=== PATIENT | male | born 1975 | race Caucasian/White ===

== ENCOUNTER 2020-04-03 14:15 | Inpatient (IN) | payer MEDICARE, OTHER ==
[~2020-04-03] VITALS: Ht 172.7 cm; Wt 127.0 kg
[2020-04-03] MEDS ORDERED: HYDROMORPHONE 1 MG/1 ML DISP.SYRIN ONE ×2 (14:41→15:23)
[2020-04-03 14:44] LABS: BASOPHILS # (AUTO) 0.1 K/uL (0.0-8.0); BASOPHILS % (AUTO) 0.8 % (0.0-2.0); EOSINOPHILS # (AUTO) 0.2 K/uL (0.0-0.7); EOSINOPHILS % (AUTO) 2.3 % (0.0-7.0); HEMOGLOBIN 13.9 g/dL (12.5-16.3); LYMPHOCYTES # (AUTO) 2.7 K/uL (20.0-40.0); LYMPHOCYTES % (AUTO) 27.3 % (20.5-51.5); MEAN CORPUSCULAR HEMOGLOBIN 29.7 uug (23.8-33.4); MEAN CORPUSCULAR HGB CONC 33 g/dL (32.5-36.3); MEAN CORPUSCULAR VOLUME 89.8 fL (73.0-96.2); MONOCYTES % (AUTO) 10.7 % (0.0-11.0); NEUTROPHILS # (AUTO) 5.7 K/uL (1.8-8.9); NEUTROPHILS % (AUTO) 58.9 % (38.5-71.5); PLATELET COUNT (AUTO) 314 K/uL (152-348); RED BLOOD CELL COUNT(AUTO) 4.68 MIL/uL (4.06-5.63); WHITE BLOOD COUNT (AUTO) 9.8 K/uL (3.6-10.2)
[2020-04-03] MEDS ORDERED: HYDROMORPHONE 1 MG/1 ML DISP.SYRIN IV ONE ×2 (14:45→15:30)
--- NOTE | 2020-04-03 14:48 | NUR ---
PT IS IN ROOM #1B. DR CUMMINGS EVALUATED THE PT.
[2020-04-03 15:04] LABS: ALANINE AMINOTRANSFERASE 36 U/L (16-63); ALKALINE PHOSPHATASE 139 U/L (50-136); ASPARTATE AMINOTRANSFERASE 11 U/L (15-37); BILIRUBIN,DIRECT < 0.1 mg/dL (0.0-0.2); BILIRUBIN,TOTAL 0.4 mg/dL (0.2-1.0); CARBON DIOXIDE 31 mmol/L (21-32); CHLORIDE 96 mmol/L (98-107); CREATININE 0.9 mg/dL (0.6-1.3); POTASSIUM 4.1 mmol/L (3.5-5.1); TOTAL PROTEIN, SERUM 6.5 g/dL (6.4-8.2); UREA NITROGEN, BLOOD 13 mg/dL (7-18)
[2020-04-03 15:05] LABS: GLUCOSE 354 mg/dL (74-106)
[2020-04-03] MEDS ORDERED: IV NORMAL SALINE 1000 ML BAG IV ONE (15:15)
[2020-04-03] MEDS ORDERED: LEVE1000 PO (15:47)
[2020-04-03] MEDS ORDERED: METH10TA2 PO ×2 (15:47)
[2020-04-03] MEDS ORDERED: CYCL5TAB PO (15:47)
[2020-04-03] MEDS ORDERED: ASPI-612 PO (15:47)
[2020-04-03] MEDS ORDERED: CLIN60GE TP (15:47)
[2020-04-03] MEDS ORDERED: NALO0.4D4 IJ (15:47)
[2020-04-03] MEDS ORDERED: ASPI81TA31 PO (15:47)
[2020-04-03] MEDS ORDERED: ONDA8TAB6 PO (15:47)
[2020-04-03] MEDS ORDERED: FAMO-132 PO (15:47)
[2020-04-03] MEDS ORDERED: VENL75TA4 PO (15:47)
[2020-04-03] MEDS ORDERED: LORA-259 PO (15:47)
[2020-04-03] MEDS ORDERED: HYDR12.55 PO (15:47)
[2020-04-03] MEDS ORDERED: GABA600T12 PO (15:47)
[2020-04-03] MEDS ORDERED: TICA90TA PO (15:47)
[2020-04-03] MEDS ORDERED: IPRA3AMP23 IH (15:47)
[2020-04-03] MEDS ORDERED: ATOR40TA PO (15:47)
[2020-04-03] MEDS ORDERED: BISA10SU61 RC (15:47)
[2020-04-03] MEDS ORDERED: FURO40TA5 PO (15:47)
[2020-04-03] MEDS ORDERED: VALP250C3 PO (15:47)
[2020-04-03] MEDS ORDERED: LISI-603 PO (15:47)
[2020-04-03] MEDS ORDERED: MORP60TA4 SL (15:47)
[2020-04-03] MEDS ORDERED: ATROPINE 1% SL (15:47)
--- NOTE | 2020-04-03 16:28 | NUR ---
REPORT WAS GIVEN TO WATER USE INSPECTOR. PT WAS TRANSFERED TO ROOM #327.
--- NOTE | 2020-04-03 16:45 | NUR ---
Pt in RM 327 via gurney, very lethargic and only moans when touched or by light pain. On O2 @ 2L saturating 96% with no SOB or distress noted at this time. No episodes of seizure. On tele SR, IV on MAYRA 22g H/L flushed and patent. Scabs and daley on BLE. Bed locked in lowest position with siderails 2x up. Call light within reach. Seizure precautions in place. padded siderails and suction attached. Can't perform assessment unable to obtain information since patient very lethargic
[2020-04-03] MEDS ORDERED: ASPIRIN 325 MG TABLET PO SCH (17:30)
[2020-04-03] MEDS ORDERED: LORAZEPAM 1 MG TABLET PO PRN (17:30)
[2020-04-03] MEDS ORDERED: BISACODYL 10 MG SUPP.RECT RC PRN (17:30)
[2020-04-03] MEDS ORDERED: DEXTROSE 50% 50 ML DISP.SYRIN IV PRN (17:45)
[2020-04-03] MEDS ORDERED: ONDANSETRON 4 MG/2 ML VIAL IV PRN (17:45)
[2020-04-03] MEDS ORDERED: ALBUTEROL SULFATE 1.25 MG/3 ML NEBU NEB PRN (17:45)
[2020-04-03] MEDS ORDERED: ACETAMINOPHEN 325 MG TABLET PO PRN (17:45)
--- NOTE | 2020-04-03 18:13 | NUR ---
Attempted to assess patient again but still very lethargic and unable to answer questions. Will reassess again when more awake.
--- NOTE | 2020-04-03 19:11 | NUR ---
Pt just woke up after right leg was moved and complained of pain, still a little lethargic. Oriented to room and unit policy. Stated that aura is metallic taste to mouth. No other complaints at this time. Bed locked in lowest position with siderails 2x up. Call light within reach. Endorsed to next shift to complete initial assessment and patient's belonging list.
--- NOTE | 2020-04-03 19:25 | NUR ---
Was able to take picture of right LE but refused to have the left LE picture taken.
--- NOTE | 2020-04-03 19:35 | NUR ---
Received patient calm, asleep, and lying in bed. No signs of acute distress at this time. Patient is on 2L via NC, patient denies SOB. Vital signs stable. Side rails padded and seizure precautions in place. calibration engineer on, patient is normal sinus rhythm. Bed alarm on and bed locked in low position. Safety measures in place. Will continue to monitor.
[2020-04-03 20:30] VITALS: BP 137/65
[2020-04-03] MEDS: levETIRAcetam 500 MG TABLET PO SCH (21:50)
[2020-04-03] MEDS: BLOOD SUGAR DIAGNOSTIC 1 EACH STRIP VI SCH (21:51)
[2020-04-03] MEDS: ATORVASTATIN 40 MG TABLET PO SCH (21:51)
[2020-04-03] MEDS: INSULIN REGULAR, HUMAN 300 UNIT/3 ML VIAL SQ PRN (21:53)
[2020-04-03] MEDS: MORPHINE SULFATE IR 30 MG TABLET PO PRN (23:36)
[2020-04-04 00:05] VITALS: BP 121/74
[2020-04-04 03:27] VITALS: BP 130/67
[2020-04-04 06:42] LABS: BASOPHILS % (AUTO) 0.3 % (0.0-2.0); EOSINOPHILS # (AUTO) 0.2 K/uL (0.0-0.7); EOSINOPHILS % (AUTO) 2.6 % (0.0-7.0); HEMATOCRIT 41.8 % (36.7-47.1); HEMOGLOBIN 13.8 g/dL (12.5-16.3); LYMPHOCYTES # (AUTO) 2.4 K/uL (20.0-40.0); LYMPHOCYTES % (AUTO) 26.6 % (20.5-51.5); MEAN CORPUSCULAR HEMOGLOBIN 29.9 uug (23.8-33.4); MEAN CORPUSCULAR HGB CONC 33 g/dL (32.5-36.3); MEAN CORPUSCULAR VOLUME 90.3 fL (73.0-96.2); MONOCYTES # (AUTO) 0.9 K/uL (2.0-10.0); MONOCYTES % (AUTO) 9.5 % (0.0-11.0); NEUTROPHILS # (AUTO) 5.6 K/uL (1.8-8.9); PLATELET COUNT (AUTO) 300 K/uL (152-348); RED BLOOD CELL COUNT(AUTO) 4.63 MIL/uL (4.06-5.63); WHITE BLOOD COUNT (AUTO) 9.2 K/uL (3.6-10.2)
[2020-04-04] MEDS: BLOOD SUGAR DIAGNOSTIC 1 EACH STRIP VI SCH ×4 (06:47→21:16)
[2020-04-04 06:50] LABS: THYROID STIMULATING HORMONE 1.396 mIU/mL (0.358-3.740)
[2020-04-04 06:53] LABS: BILIRUBIN,TOTAL 0.5 mg/dL (0.2-1.0); CREATININE 0.8 mg/dL (0.6-1.3); PHOSPHOROUS 3.7 mg/dL (2.5-4.9); POTASSIUM 3.8 mmol/L (3.5-5.1); TOTAL PROTEIN, SERUM 6.1 g/dL (6.4-8.2)
--- NOTE | 2020-04-04 07:30 | NUR ---
Received patient resting in bed. No signs of respiratory distress noted, patient is on 2 L of oxygen saturating at a 100%. Patient IV is on right upper arm 22 gauge,. Patient reports pain of 9/10, will check eMAR for pain medication and administer as prescribed. Seizure precautions are in place, with rails padded and suction in place. Patient blood glucose is 245, will cover with insulin according to sliding scale. Safety precautions in place, bed in the lowest position, locked with alarm activated. Call light and belongings are within reach. Will continue to monitor and observe.
[2020-04-04] MEDS ORDERED: LISINOPRIL 20 MG TABLET PO SCH (09:00)
[2020-04-04] MEDS ORDERED: CYCLOBENZAPRINE HCL 10 MG TABLET PO PRN (09:00)
[2020-04-04] MEDS: FAMOTIDINE 20 MG TABLET PO SCH (09:10)
[2020-04-04] MEDS: INSULIN REGULAR, HUMAN 300 UNIT/3 ML VIAL SQ PRN ×3 (09:11→21:14)
[2020-04-04] MEDS: GABAPENTIN 300 MG CAPSULE PO SCH ×3 (09:11→17:37)
[2020-04-04] MEDS: ASPIRIN 81 MG TAB.CHEW PO SCH (09:12)
[2020-04-04] MEDS: METHADONE HCL 10 MG TABLET PO SCH ×2 (09:12→17:37)
[2020-04-04] MEDS: levETIRAcetam 500 MG TABLET PO SCH ×2 (09:12→17:38)
[2020-04-04] MEDS: MORPHINE SULFATE IR 30 MG TABLET PO PRN ×2 (09:13→14:43)
[2020-04-04] MEDS: INSULIN GLARGINE,HUM 300 UNITS/3 ML CARTRIDGE SQ SCH ×2 (09:20→21:14)
--- NOTE | 2020-04-04 09:49 | NUR ---
Patient ask that i turn the bed alarm off.
[2020-04-04] MEDS: FUROSEMIDE 20 MG TABLET PO SCH (09:54)
[2020-04-04] MEDS: TICAGRELOR 90 MG TABLET PO SCH ×2 (09:55→17:38)
[2020-04-04 11:32] VITALS: BP 100/60
--- NOTE | 2020-04-04 11:33 | NUR ---
Patient refused to check his blood glucose, he says he is not eating and that it hurts too much. Will continue to monitor.
[2020-04-04] MEDS: VENLAFAXINE XR 75 MG TAB.ER.24H PO SCH (11:39)
[2020-04-04] MEDS: VALPROIC ACID 250 MG CAPSULE PO SCH ×3 (11:39→17:37)
[2020-04-04 16:02] VITALS: BP 105/74
--- NOTE | 2020-04-04 17:30 | NUR ---
Made Dr. Mccrary aware that the patient was not eating.
--- NOTE | 2020-04-04 17:45 | NUR ---
Received call from Monique Knowles at [facility] that patient's is positive for MRSA in both nares.
--- NOTE | 2020-04-04 18:30 | NUR ---
Patient is resting calmy in bed, he has been intermittently dozing on and off all day.No signs of acute distress at this time. Patient is on 2L via nasal cannula, patient denies SOB. Vital signs stable. Side rails padded and seizure precautions in place. playground monitor on patient is normal sinus rhythm. Bed alarm on and bed locked in low position. Safety measures and seizure precautions in place. Will endorse to the oncoming nurse
--- NOTE | 2020-04-04 19:30 | NUR ---
RECEIVED PT AWAKE, ALERT AND ORIENTEDX4. PT IN NO ACUTE DISTRESS. IV INTACT. SAFETY AND COMFORT PROVIDED. PT ON 2L NASAL CANNULA. WILL CONTINUE TO MONITOR.
[2020-04-04 20:00] VITALS: BP 100/52
[2020-04-04] MEDS: ATORVASTATIN 40 MG TABLET PO SCH (21:09)
--- NOTE | 2020-04-04 22:22 | NUR ---
PT AGREED FOR HIS BELONGING LIST TO BE CHECKED. FOUND CONTRABAND AND PUT IT ON THE CONTRABAND DRAWER. PT EASILY ASLEEP.PT SAFETY AND COMFORT PROVIDED. WILL CONTINUE TO MONITOR.
[2020-04-05] VITALS: BP 106/61
[2020-04-05] MEDS: MORPHINE SULFATE IR 30 MG TABLET PO PRN ×5 (03:22→20:42)
--- NOTE | 2020-04-05 03:35 | NUR ---
PT GIVEN MORPHINE PRN AT 0322 FOR 8/10 PAIN SCALE FOR RIGHT HIP PAIN. PT TOLERATED IT WELL. PT OBSERVED TO HAD SALOMON TO ORANGE COLORED URINE IN THE URINAL. SAFETY AND COMFORT PROVIDED. WILL CONTINUE TO MONITOR.
--- NOTE | 2020-04-05 04:45 | NUR ---
PT RESTING COMFORTABLY. PT STATED PAIN SCALE SUBSIDED TO 2/10. PT STABLE. WILL CONTINUE TO MONITOR.
--- NOTE | 2020-04-05 06:23 | NUR ---
PT SLEPT INTERMITTENTLY. PT IN NO ACUTE DISTRESS. IV INTACT. PRESCRIBED MEDICATION GIVEN AND PT TOLERATED IT WELL. SAFETY AND COMFORT PROVIDED. WILL ENDORSE TO INCOMING NURSE FOR CONTINUITY OF CARE.
[2020-04-05] MEDS: BLOOD SUGAR DIAGNOSTIC 1 EACH STRIP VI SCH ×4 (06:36→20:43)
--- NOTE | 2020-04-05 07:30 | NUR ---
Received patient resting in bed. No signs of respiratory distress noted, patient is on 2 L of oxygen saturating at a 100%. Patient IV is on right upper arm 22 gauge,. Patient reports pain of 9/10, will check eMAR for pain medication and administer as prescribed. Seizure precautions are in place, with rails padded and suction in place. Patient blood glucose is 196, will cover with insulin according to sliding scale. Safety precautions in place, bed in the lowest position, locked with alarm activated. Call light and belongings are within reach. Will continue to monitor and observe.
[2020-04-05] MEDS: levETIRAcetam 500 MG TABLET PO SCH ×2 (08:28→17:15)
[2020-04-05] MEDS: FUROSEMIDE 20 MG TABLET PO SCH (08:28)
[2020-04-05] MEDS: TICAGRELOR 90 MG TABLET PO SCH (08:28)
[2020-04-05] MEDS: FAMOTIDINE 20 MG TABLET PO SCH (08:28)
[2020-04-05] MEDS: VENLAFAXINE XR 75 MG TAB.ER.24H PO SCH (08:28)
[2020-04-05] MEDS: GABAPENTIN 300 MG CAPSULE PO SCH ×3 (08:28→17:15)
[2020-04-05] MEDS: ASPIRIN 81 MG TAB.CHEW PO SCH (08:29)
[2020-04-05] MEDS: METHADONE HCL 10 MG TABLET PO SCH ×2 (08:29→17:15)
[2020-04-05] MEDS: VALPROIC ACID 250 MG CAPSULE PO SCH ×3 (08:29→17:16)
[2020-04-05] MEDS: LISINOPRIL 20 MG TABLET PO SCH (08:35)
[2020-04-05] MEDS: INSULIN GLARGINE,HUM 300 UNITS/3 ML CARTRIDGE SQ SCH ×3 (08:37→20:46)
[2020-04-05] MEDS: INSULIN REGULAR, HUMAN 300 UNIT/3 ML VIAL SQ PRN ×4 (08:38→20:47)
[2020-04-05] MEDS ORDERED: SWABABLE VALVE TRANSFER SET EA MC ONE (09:14)
[2020-04-05] MEDS ORDERED: IOHEXOL 300MG/ML 100 ML INFUS..BTL ONE (09:15)
[2020-04-05] MEDS ORDERED: IV NORMAL SALINE 250 ML IV ONE (09:15)
--- NOTE | 2020-04-05 09:20 | NUR ---
Spoke with pharmacist, already gave patient 10 units of Lantus before medication was discontinued and new order for 14 units put in. Pharmacist said it is okay to non admin and start at 2100 tonight. Will continue to monitor.
[2020-04-05 11:36] VITALS: BP 107/63
[2020-04-05] MEDS: DRONABINOL 2.5 MG CAPSULE PO SCH ×2 (11:40→20:43)
[2020-04-05 16:00] VITALS: BP 120/52
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
--- NOTE | 2020-04-05 19:30 | NUR ---
Received patient calm and lying in bed. AAOx3. No signs or symptoms of acute distress noted at this time. Patient is on 2L O2 via NC and saturating at 97% denies SOB. Seizure precautions in place. Side rails up and padded x2. Suction Suction equipment in room. Bed low and locked. Patient refused bed alarm. Safety measure in place and will continue to monitor.
--- NOTE | 2020-04-05 19:49 | NUR ---
Patient resting in bed, all vitals are within normal limits. Safety precautions are in place. Gave all medications as prescribes. Will endorse to the oncoming nurse
[2020-04-05 20:00] VITALS: BP 135/58
[2020-04-05] MEDS: ATORVASTATIN 40 MG TABLET PO SCH (20:42)
[2020-04-05] MEDS: MUPIROCIN 2% OINT 22 GM TUBE NS SCH (20:42)
[2020-04-06] MEDS: MORPHINE SULFATE IR 30 MG TABLET PO PRN ×3 (00:55→10:23)
[2020-04-06 04:00] VITALS: BP 90/50
[2020-04-06] MEDS: BLOOD SUGAR DIAGNOSTIC 1 EACH STRIP VI SCH ×2 (06:38→11:59)
--- NOTE | 2020-04-06 08:00 | NUR ---
Received patient in bed awake. Patient is AAO x 4. NO acute distress noted. Patient asked if due for pain medication at the start of the shift, informed patient that medication is not due and will bring when it is due. Patient also asked when will be the discharge time. Informed patient will inform patient once the puts in the discharge order. All other needs and safety measures in place and will continue with care.
[2020-04-06] MEDS: INSULIN REGULAR, HUMAN 300 UNIT/3 ML VIAL SQ PRN ×2 (08:09→12:02)
[2020-04-06] MEDS ORDERED: INSU100V28 SQ (09:20)
[2020-04-06] MEDS ORDERED: ASPI-618 PO (09:20)
[2020-04-06] MEDS ORDERED: Blood Sugar Diagnostic VI (09:20)
[2020-04-06] MEDS ORDERED: ACET325T53 PO (09:20)
[2020-04-06] MEDS ORDERED: FLUT1BLS IH (09:20)
[2020-04-06] MEDS ORDERED: Dronabinol PO (09:20)
[2020-04-06] MEDS ORDERED: MORP30TA2 PO (09:20)
[2020-04-06] MEDS ORDERED: INSU100V7 SQ (09:20)
[2020-04-06] MEDS ORDERED: FURO20TA4 PO (09:20)
[2020-04-06] MEDS ORDERED: LORA-259 PO (09:20)
[2020-04-06] MEDS ORDERED: LISI10TA5 PO (09:20)
[2020-04-06] MEDS ORDERED: MULT-594 PO (09:20)
[2020-04-06] MEDS ORDERED: MUPI22OI2 NS (09:20)
[2020-04-06] MEDS ORDERED: DEXT50DI8 IV (09:20)
[2020-04-06] MEDS: METHADONE HCL 10 MG TABLET PO SCH (09:45)
[2020-04-06] MEDS: GABAPENTIN 300 MG CAPSULE PO SCH ×2 (09:46→13:36)
[2020-04-06] MEDS: FUROSEMIDE 20 MG TABLET PO SCH (09:46)
[2020-04-06] MEDS: VALPROIC ACID 250 MG CAPSULE PO SCH ×2 (09:46→13:36)
[2020-04-06] MEDS: DRONABINOL 2.5 MG CAPSULE PO SCH (09:46)
[2020-04-06] MEDS: VENLAFAXINE XR 75 MG TAB.ER.24H PO SCH (09:48)
[2020-04-06] MEDS: MUPIROCIN 2% OINT 22 GM TUBE NS SCH (09:48)
[2020-04-06] MEDS: levETIRAcetam 500 MG TABLET PO SCH (09:53)
[2020-04-06] MEDS: FAMOTIDINE 20 MG TABLET PO SCH (09:56)
[2020-04-06] MEDS: INSULIN GLARGINE,HUM 300 UNITS/3 ML CARTRIDGE SQ SCH (09:59)
[2020-04-06 10:45] VITALS: BP 121/86
[2020-04-06] MEDS: LISINOPRIL 20 MG TABLET PO SCH (11:00)
--- NOTE | 2020-04-06 11:00 | NUR ---
All due medications administered as ordered and scheduled. Patient on sliding scale insulin. insulin per sliding scale administered. Morphine IR 30mg 2 tabs administered for pain and tolerated well. Patient seen by Dr. Mccrary and with an order for discharge to assisted. will continue with care.
[2020-04-06 11:17] VITALS: BP 96/61
--- NOTE | 2020-04-06 14:33 | NUR ---
Discharge: Patient in stable condition, vital signs stable. Medications verified and discharge med orders given by . Discharge teaching provided to patient, patient is very aware of medications treatment and discharge orders. Discharge papers signed by patient. Report including new medication and new diagnosis of Diabetes given to Sridevi at [facility]. All other needs attended, safety measures in place and will continue with care.
--- NOTE | 2020-04-06 15:00 | NUR ---
Discharge: All belongings checked and returned to patient. Inventory paper signed by patient. Patient picked up by [facility] assisted by 2 brazer furnace via gurney and left at 3:02PM.
[2020-04-09] MEDS ORDERED: TICAGRELOR 90 MG TABLET PO SCH (09:00)
[2020-04-09] MEDS ORDERED: ASPIRIN EC 81 MG TABLET.DR PO SCH (09:00)
== END 2020-04-06 15:00 | DRG 100 ==
LOC: ER 14:15 → TELE3 16:04 → MEDSURG3 04-05 09:23
PROVIDERS: ADMIT Internal Medicine; ATTEND Internal Medicine
DX: G40.909 Epilepsy, unspecified, not intractable, without status epilepticus (principal); E43 Unspecified severe protein-calorie malnutrition; I69.351 Hemiplegia and hemiparesis following cerebral infarction affecting right dominant side; I50.32 Chronic diastolic (congestive) heart failure; D68.69 Other thrombophilia; Z68.41 Body mass index [BMI] 40.0-44.9, adult; E78.5 Hyperlipidemia, unspecified; Z85.830 Personal history of malignant neoplasm of bone; I11.0 Hypertensive heart disease with heart failure; E11.65 Type 2 diabetes mellitus with hyperglycemia; E66.01 Morbid (severe) obesity due to excess calories; F32.9 Major depressive disorder, single episode, unspecified; F90.9 Attention-deficit hyperactivity disorder, unspecified type; G47.33 Obstructive sleep apnea (adult) (pediatric); F17.210 Nicotine dependence, cigarettes, uncomplicated; G89.4 Chronic pain syndrome; I25.10 Atherosclerotic heart disease of native coronary artery without angina pectoris; N31.9 Neuromuscular dysfunction of bladder, unspecified; Z79.82 Long term (current) use of aspirin; Z90.49 Acquired absence of other specified parts of digestive tract; Z95.5 Presence of coronary angioplasty implant and graft; I67.2 Cerebral atherosclerosis; E88.81 Metabolic syndrome and other insulin resistance; M19.90 Unspecified osteoarthritis, unspecified site; Z22.322 Carrier or suspected carrier of Methicillin resistant Staphylococcus aureus; R62.7 Adult failure to thrive; R40.2142 Coma scale, eyes open, spontaneous, at arrival to emergency department; R40.2362 Coma scale, best motor response, obeys commands, at arrival to emergency department; R40.2252 Coma scale, best verbal response, oriented, at arrival to emergency department; Z79.4 Long term (current) use of insulin; Z79.891 Long term (current) use of opiate analgesic
CPT/HCPCS: 36415; 70030-TC; 70450; 71045; 73502; 73551; 80164; 83735; 84100; 84443; 85025; 85730; 93005; 93307; A4663; G0378; J1170; J1815; J7030; J7050; Q0167; Q9967

== ENCOUNTER 2020-07-18 21:32 | Inpatient (IN) | payer MEDICARE, OTHER ==
[~2020-07-18] VITALS: Ht 177.8 cm; Wt 126.2 kg
[~2020-07-18 21:32] MED LIST: ACET325T53 PO; ASPI-618 PO; ATOR40TA PO; BISA10SU61 RC; Blood Sugar Diagnostic VI; CYCL5TAB PO; DEXT50DI8 IV; Dronabinol PO; FAMO-132 PO; FLUT1BLS IH; FURO20TA4 PO; GABA600T12 PO; INSU100V28 SQ; INSU100V7 SQ; IPRA3AMP23 IH; LEVE1000 PO; LISI10TA5 PO; LORA-259 PO; MORP30TA2 PO; MULT-594 PO; MUPI22OI2 NS; NALO0.4D4 IJ; ONDA8TAB6 PO; TICA90TA PO; VALP250C3 PO; VENL75TA4 PO
[2020-07-18] MEDS ORDERED: ONDANSETRON 4 MG/2 ML VIAL IV ONE ×2 (22:15→22:30)
[2020-07-18] MEDS ORDERED: levETIRAcetam IV 1,000 MG in IV DEXTROSE 5% 100 ML IV ONE (22:15)
[2020-07-18] MEDS ORDERED: MORPHINE SULFATE 4 MG/1 ML DISP.SYRIN IV ONE (22:15)
[2020-07-18] MEDS ORDERED: levETIRAcetam 500 MG/5 ML VIAL IV ONE (22:22)
[2020-07-18] MEDS ORDERED: ONDANSETRON 4 MG/2 ML VIAL ONE ×2 (22:23→22:34)
[2020-07-18 22:34] LABS: CARBON DIOXIDE 22 mmol/L (21-32); CHLORIDE 95 mmol/L (98-107); CREATININE 0.8 mg/dL (0.6-1.3); GLUCOSE 281 mg/dL (74-106); POTASSIUM 3.4 mmol/L (3.5-5.1); UREA NITROGEN, BLOOD 9 mg/dL (7-18)
[2020-07-18 22:35] LABS: ALANINE AMINOTRANSFERASE 31 U/L (16-63); ALKALINE PHOSPHATASE 147 U/L (50-136); ASPARTATE AMINOTRANSFERASE 14 U/L (15-37); BASOPHILS # (AUTO) 0.1 K/uL (0.0-8.0); BASOPHILS % (AUTO) 0.4 % (0.0-2.0); BILIRUBIN,DIRECT 0.2 mg/dL (0.0-0.2); BILIRUBIN,TOTAL 0.5 mg/dL (0.2-1.0); ETHANOL < 3 MG/DL (0-0); HEMATOCRIT 41.6 % (36.7-47.1); HEMOGLOBIN 14.2 g/dL (12.5-16.3); LYMPHOCYTES # (AUTO) 1.4 K/uL (20.0-40.0); LYMPHOCYTES % (AUTO) 8.1 % (20.5-51.5); MEAN CORPUSCULAR HEMOGLOBIN 30.2 uug (23.8-33.4); MEAN CORPUSCULAR HGB CONC 34 g/dL (32.5-36.3); MEAN CORPUSCULAR VOLUME 88.9 fL (73.0-96.2); MONOCYTES # (AUTO) 0.8 K/uL (2.0-10.0); MONOCYTES % (AUTO) 4.8 % (0.0-11.0); NEUTROPHILS # (AUTO) 14.7 K/uL (1.8-8.9); NEUTROPHILS % (AUTO) 86.7 % (38.5-71.5); PLATELET COUNT (AUTO) 426 K/uL (152-348); RED BLOOD CELL COUNT(AUTO) 4.68 MIL/uL (4.06-5.63); TOTAL PROTEIN, SERUM 7.7 g/dL (6.4-8.2); WHITE BLOOD COUNT (AUTO) 16.9 K/uL (3.6-10.2)
[2020-07-18] MEDS ORDERED: HYDROMORPHONE 1 MG/1 ML DISP.SYRIN ONE (23:25)
[2020-07-18] MEDS ORDERED: HYDROMORPHONE 1 MG/1 ML DISP.SYRIN IV ONE (23:30)
[2020-07-18] MEDS ORDERED: IV NORMAL SALINE 500 ML IV ONE (23:30)
--- NOTE | 2020-07-18 23:30 | NUR ---
Patient will be going to bed 302 TELE per RAGHAV Miller
--- NOTE | 2020-07-18 23:32 | NUR ---
EPIC panel placed, awaiting call back from Lisa Lott, LAURA
[2020-07-18] MEDS ORDERED: METOCLOPRAMIDE HCL 10 MG/2 ML VIAL ONE (23:56)
[2020-07-18] MEDS ORDERED: DIVALPROEX 500 MG TABLET.DR PO ONE (23:56)
[2020-07-19] MEDS ORDERED: METOCLOPRAMIDE HCL 10 MG/2 ML VIAL IV ONE
[2020-07-19] MEDS ORDERED: DIVALPROEX 500 MG TABLET.DR PO ONE
[2020-07-19] MEDS ORDERED: DIVALPROEX 250 MG TABLET.DR PO ONE (00:07)
[2020-07-19] MEDS ORDERED: HYDROMORPHONE 1 MG/1 ML DISP.SYRIN IV ONE (00:15)
--- NOTE | 2020-07-19 00:31 | NUR ---
Report given to RAGHAV Nunez.
[2020-07-19] MEDS ORDERED: HYDROMORPHONE 1 MG/1 ML DISP.SYRIN ONE (00:36)
--- NOTE | 2020-07-19 00:54 | NUR ---
Patient transported to TELE in stable condition.
[2020-07-19] MEDS ORDERED: ENOXAPARIN SODIUM 40 MG/0.4 ML DISP.SYRIN SQ SCH (01:00)
[2020-07-19] MEDS ORDERED: INSULIN REGULAR, HUMAN 300 UNIT/3 ML VIAL SQ PRN (01:00)
[2020-07-19] MEDS ORDERED: ONDANSETRON 4 MG/2 ML VIAL IV PRN (01:00)
[2020-07-19] MEDS ORDERED: ACETAMINOPHEN 650 MG SUPP.RECT RC PRN (01:00)
[2020-07-19] MEDS ORDERED: HYDROCODONE/APAP 10-325 MG TABLET PO PRN (01:00)
[2020-07-19] MEDS ORDERED: Z GUARD REMEDY PASTE 57 GM TUBE TOP PRN (01:00)
[2020-07-19] MEDS ORDERED: DEXTROSE 50% 50 ML DISP.SYRIN IV PRN (01:00)
[2020-07-19] MEDS ORDERED: IV NS 1000 ML 1,000 ML IV PRN ×2 (01:00→01:13)
[2020-07-19] MEDS ORDERED: AZITHROMYCIN IV 250 MG in IV DEXTROSE 5% 250 ML IV SCH (01:00)
[2020-07-19] MEDS ORDERED: LORAZEPAM 2 MG/1 ML VIAL IV PRN (01:15)
--- NOTE | 2020-07-19 01:30 | NUR ---
RECEIVED PATIENT VIA GURNEY FROM ER NURSE. REPORT RECEIVED. PATIENT IN BED, ALERT AND VERBALLY RESPONSIVE. CAN MAKE NEEDS KNOWN. PATIENT WITH COMPLAINTS OF BEING NAUSEOUS. PATIENT PREFERS NOT TO MOVE MUCH. PARTIAL BODY CHECK DONE PATIENT GETS NAUSEOUS WITH MOVEMENT. OFFERED ICE CHIPS. PATIENT REFUSED. HOB ELEVATED FOR ASPIRATION PRECAUTIONS. PATIENT ORIENTED TO ROOM AND FLOOR, MADE COMFORTABLE. ON 2.5L/MIN OF O2 VIA NC. RESPIRATIONS EVEN AND UNLABORED. CORNEJO CATHETER DRAINING CLEAR SALOMON URINE.
--- NOTE | 2020-07-19 02:10 | NUR ---
PATIENT REPORTS OF NAUSEA. X1 EPISODE OF COFFEE GROUND EMESIS. ASPIRATION PRECAUTIONS OBSERVED. FALL, SAFETY, AND SEIZURE PRECAUTIONS OBSERVED WELL. TUCKER SOTO PERINATOLOGY PHYSICIAN MADE AWARE. CLARIFIED MEDICATION. PROTONIX TO BE GIVEN NOW AND FOR ORAL MEDS TO BE CHANGED TO IV ROUTE WHILE PT IS NPO. PHARMACY MADE AWARE. VALPROATE WITH NO DIRECT COUNTERPART FOR IV MEDICATION AND GABAPENTIN WITH NO IV COUNTERPART. TUCKER SOTO MADE AWARE. ALSO MADE PHARMACY AWARE OF ACETAMINOPHEN ALLERGIC REACTION. PER PT, REACTION IS ANAPHYLACTIC SHOCK.
[2020-07-19] MEDS ORDERED: PROCHLORPERAZINE EDISYLATE 10 MG/2 ML VIAL IV PRN (02:15)
[2020-07-19] MEDS ORDERED: IV 0.9% SODIUM CHLORID+ 20 KCL 1,000 ML IV PRN (02:15)
[2020-07-19] MEDS ORDERED: PANTOPRAZOLE SODIUM 40 MG VIAL IV ONE (02:45)
--- NOTE | 2020-07-19 03:00 | NUR ---
PATIENT REFUSED BLOOD DRAW. PER PT, HE IS FEELING NAUSEOUS. WILL ATTEMPT AGAIN AT A LATER TIME
[2020-07-19] MEDS: MORPHINE SULFATE 2 MG/1 ML DISP.SYRIN IV PRN ×3 (03:10→10:48)
[2020-07-19] MEDS ORDERED: AZITHROMYCIN 500 MG VIAL IV ONE (03:13)
[2020-07-19 04:00] VITALS: BP 131/72
[2020-07-19] MEDS: BLOOD SUGAR DIAGNOSTIC 1 EACH STRIP VI SCH ×2 (06:00→11:02)
[2020-07-19] MEDS ORDERED: VALPROATE SODIUM IV SCH ×3 (06:00→09:00)
[2020-07-19] MEDS ORDERED: DEXTROSE 5% IV SCH ×3 (06:00→09:00)
--- NOTE | 2020-07-19 06:30 | NUR ---
PATIENT REFUSED MRSA SWAB, BLOOD SUGAR CHECK, AND BLOOD DRAW. PATIENT STATED, "I AM DONE FOR THIS MORNING." PER PHLEB, PATIENT SAID TO TRY TO DRAW BLOOD AGAIN LATER.
[2020-07-19 07:28] LABS: *BILIRUBIN,URIN NEGATIVE (NEGATIVE); *BLOOD, URINE 2+ (NEGATIVE); *CLARITY,URINE SLIGHTLY CLOUDY (CLEAR); *COLOR,URINE YELLOW (YELLOW); *KETONES,URINE 2+ (NEGATIVE); LEUKOCYTE ESTERASE ,URINE NEGATIVE (NEGATIVE); NITRITE, URINE POSITIVE (NEGATIVE); UGLUCOSE 2+ (NEGATIVE)
[2020-07-19] MEDS ORDERED: levETIRAcetam 500 MG TABLET PO SCH ×2 (09:00→21:00)
[2020-07-19] MEDS ORDERED: PANTOPRAZOLE SODIUM 40 MG VIAL IV SCH (09:00)
[2020-07-19] MEDS ORDERED: levETIRAcetam IV 1,000 MG in IV DEXTROSE 5% 100 ML IV SCH (09:00)
[2020-07-19] MEDS ORDERED: VALPROIC ACID 250 MG CAPSULE PO SCH (09:00)
[2020-07-19] MEDS: GABAPENTIN 300 MG CAPSULE PO SCH ×3 (09:00→14:44)
[2020-07-19 11:32] VITALS: BP 128/91
--- NOTE | 2020-07-19 12:00 | NUR ---
pt have svt 22 second and his hr is200 .check the pt and pt is asymptomatic his bp is 126/69 hr 95 md made aware no chest pain and seizure noted
[2020-07-19 12:33] LABS: BACTERIA,URINE FEW /HPF (NONE SEEN); SQUAMOUS EPITHELIAL CELL,UR FEW /HPF (NONE SEEN); YEAST,URINE MANY /HPF (NONE SEEN)
--- NOTE | 2020-07-19 12:50 | NUR ---
PT TOOK THE HEART MONITOR AND DC HIS IV FLUIDS MADE AWARE
[2020-07-19] MEDS ORDERED: BISACODYL 10 MG SUPP.RECT RC PRN (13:00)
[2020-07-19] MEDS ORDERED: MORPHINE SULFATE IR 30 MG TABLET PO PRN (13:00)
[2020-07-19] MEDS ORDERED: LORAZEPAM 1 MG TABLET PO PRN (13:00)
--- NOTE | 2020-07-19 14:00 | NUR ---
pt is on the wheel chair in the hallway threatening the staff he wants to go paul mcclelland made aware ,AMA PAPER GIVEN TO THE PT ,PT SIGN THE AMA PAPER AMA BELONGING PAPER ,REMOVED THE IV HEPLOCK .
--- NOTE | 2020-07-19 14:00 | NUR ---
PT REFUSED TO REMOVE THE NAME BAND FIGHTING WITH THE STAFF SECURITY CALLED AND NOTIFIED THE
--- NOTE | 2020-07-19 14:10 | NUR ---
PT IS ARGUING WITH THE SECURITY AND WITH THE STAFF ABOUT HIS MEDICATION AND HE GET THE AMA PAPER AND HE RIP IT AND HE SAID HE IS NOT GOING
[2020-07-19] MEDS ORDERED: DIVALPROEX 250 MG TABLET.DR PO SCH (14:38)
--- NOTE | 2020-07-19 14:55 | NUR ---
PER MD ORDERS MORPHINE 60 MG PO GIVEN
[2020-07-19] MEDS ORDERED: ONDANSETRON HCL 4 MG TABLET PO PRN (15:15)
[2020-07-19] MEDS ORDERED: VALPROATE SODIUM IV 1,000 MG in IV DEXTROSE 5% 100 ML IV STA (15:29)
[2020-07-19 15:37] VITALS: BP 131/68
[2020-07-19] MEDS ORDERED: DIVA500T2 PO (15:41)
[2020-07-19] MEDS ORDERED: CEPH-570 PO (15:43)
[2020-07-19] MEDS ORDERED: LEVO500T90 PO (16:39)
--- NOTE | 2020-07-19 16:55 | NUR ---
DC ORDERS RECEIVED NOTED AND CARRIED OUT,DC INSTRUCTION AND RN REPORT GIVEN TO THE CORRECTION,DC HEPLOCK PER MD ORDERS.DC INSTRUCTION GIVEN TO THE PT,PT LEFT THE FACILITY VIA AMBULANCES IN STABLE CONDITION
[2020-07-19] MEDS ORDERED: TICAGRELOR 90 MG TABLET PO SCH ×2 (17:00)
[2020-07-19] MEDS ORDERED: ATORVASTATIN 40 MG TABLET PO SCH (18:00)
[2020-07-19] MEDS ORDERED: MUPIROCIN 2% OINT 22 GM TUBE NS SCH (21:00)
[2020-07-19] MEDS ORDERED: DRONABINOL 2.5 MG PO SCH (21:00)
[2020-07-19] MEDS ORDERED: CYCLOBENZAPRINE HCL 10 MG TABLET PO PRN (22:00)
[2020-07-20] MEDS ORDERED: PANTOPRAZOLE SODIUM 40 MG TABLET.DR PO SCH (07:00)
[2020-07-20] MEDS ORDERED: FLUTICASONE/VILANTEROL 1 EACH BLST.W.DEV IH SCH (09:00)
[2020-07-20] MEDS ORDERED: VENLAFAXINE HCL 150 MG PO SCH (09:00)
[2020-07-20] MEDS ORDERED: ASPIRIN EC 81 MG TABLET.DR PO SCH (09:00)
[2020-07-20] MEDS ORDERED: FAMOTIDINE 20 MG TABLET PO SCH (09:00)
[2020-07-20] MEDS ORDERED: MULTIVITAMINS,THERAPEUTIC TABLET PO SCH (09:00)
[2020-07-20] MEDS ORDERED: LISINOPRIL 10 MG TABLET PO SCH (09:00)
[2020-07-20] MEDS ORDERED: FUROSEMIDE 20 MG TABLET PO SCH (09:00)
== END 2020-07-19 17:02 | DRG 100 ==
LOC: ER 21:34 → TELE3 07-19 00:41
PROVIDERS: ADMIT Student in an Organized Health Care Education/Training Program; ATTEND Student in an Organized Health Care Education/Training Program
DX: G40.909 Epilepsy, unspecified, not intractable, without status epilepticus (principal); E43 Unspecified severe protein-calorie malnutrition; F11.23 Opioid dependence with withdrawal; E87.1 Hypo-osmolality and hyponatremia; D68.69 Other thrombophilia; I50.32 Chronic diastolic (congestive) heart failure; R18.8 Other ascites; E78.5 Hyperlipidemia, unspecified; F39 Unspecified mood [affective] disorder; Z79.4 Long term (current) use of insulin; E87.70 Fluid overload, unspecified; Z79.82 Long term (current) use of aspirin; Z85.830 Personal history of malignant neoplasm of bone; E66.01 Morbid (severe) obesity due to excess calories; E11.9 Type 2 diabetes mellitus without complications; E86.0 Dehydration; F17.210 Nicotine dependence, cigarettes, uncomplicated; F32.9 Major depressive disorder, single episode, unspecified; G89.4 Chronic pain syndrome; I25.10 Atherosclerotic heart disease of native coronary artery without angina pectoris; G47.33 Obstructive sleep apnea (adult) (pediatric); F90.9 Attention-deficit hyperactivity disorder, unspecified type; E88.81 Metabolic syndrome and other insulin resistance; Z98.61 Coronary angioplasty status; M19.90 Unspecified osteoarthritis, unspecified site; I11.0 Hypertensive heart disease with heart failure; Z68.39 Body mass index [BMI] 39.0-39.9, adult; T43.225A Adverse effect of selective serotonin reuptake inhibitors, initial encounter; Y92.129 Unspecified place in nursing home as the place of occurrence of the external cause
CPT/HCPCS: 36415; 71045; 80164; 83615; 85025; 86140; 87086; 93005; A4663; C9113; G0378; G0480; J0456; J0780; J1170; J1650; J1815; J1953; J2270; J2405; J2765; J3490; J7040; J7060

== ENCOUNTER 2020-12-27 15:00 | Inpatient (IN) | payer MEDICARE, OTHER ==
[~2020-12-27] VITALS: Ht 177.8 cm; Wt 126.1 kg
[~2020-12-27 15:00] MED LIST changes: -ACET325T53 PO; -Blood Sugar Diagnostic VI; -DEXT50DI8 IV; +DIVA500T2 PO; -INSU100V28 SQ; -INSU100V7 SQ; +LEVO500T90 PO; +LISI10TA29 PO; -LISI10TA5 PO; -VALP250C3 PO
[2020-12-27] MEDS ORDERED: EPIN1AMP (15:34)
[2020-12-27] MEDS ORDERED: ASCO500P18 PO (15:34)
[2020-12-27] MEDS ORDERED: LORA-258 PO (15:34)
[2020-12-27] MEDS ORDERED: MELA3TAB41 PO (15:34)
[2020-12-27] MEDS ORDERED: CHOL500050 PO (15:34)
[2020-12-27] MEDS ORDERED: FURO-151 PO (15:34)
[2020-12-27] MEDS ORDERED: ZINC50TA65 PO (15:34)
[2020-12-27] MEDS ORDERED: DIPH25CA83 PO (15:34)
[2020-12-27] MEDS ORDERED: ESCI10TA PO (15:34)
[2020-12-27] MEDS ORDERED: INSU100I26 SQ (15:34)
[2020-12-27] MEDS ORDERED: UMEC1BLS IH (15:34)
[2020-12-27] MEDS ORDERED: DEXT15DR6 EACHEYE (15:34)
[2020-12-27] MEDS ORDERED: ALBUTEROL SULFATE 2.5 MG/3 ML NEBU NEB ONE (16:00)
[2020-12-27] MEDS ORDERED: MORPHINE SULFATE IR 30 MG TABLET PO ONE (16:00)
[2020-12-27] MEDS ORDERED: IPRATROPIUM BROMIDE 0.5 MG/2.5 ML NEBU NEB ONE (16:00)
[2020-12-27 16:03] LABS: BASOPHILS % (AUTO) 0.3 % (0.0-2.0); EOSINOPHILS # (AUTO) 0.2 K/uL (0.0-0.7); EOSINOPHILS % (AUTO) 1.4 % (0.0-7.0); HEMATOCRIT 43.2 % (36.7-47.1); HEMOGLOBIN 14.4 g/dL (12.5-16.3); LYMPHOCYTES # (AUTO) 3.3 K/uL (20.0-40.0); LYMPHOCYTES % (AUTO) 26.8 % (20.5-51.5); MEAN CORPUSCULAR HEMOGLOBIN 30.9 uug (23.8-33.4); MEAN CORPUSCULAR HGB CONC 33 g/dL (32.5-36.3); MEAN CORPUSCULAR VOLUME 92.6 fL (73.0-96.2); MONOCYTES # (AUTO) 1.1 K/uL (2.0-10.0); MONOCYTES % (AUTO) 9.1 % (0.0-11.0); NEUTROPHILS # (AUTO) 7.8 K/uL (1.8-8.9); NEUTROPHILS % (AUTO) 62.4 % (38.5-71.5); PLATELET COUNT (AUTO) 297 K/uL (152-348); RED BLOOD CELL COUNT(AUTO) 4.66 MIL/uL (4.06-5.63); WHITE BLOOD COUNT (AUTO) 12.5 K/uL (3.6-10.2)
[2020-12-27] MEDS ORDERED: IPRATROPIUM BROMIDE 0.5 MG/2.5 ML NEBU ONE (16:16)
[2020-12-27] MEDS ORDERED: ALBUTEROL SULFATE 2.5 MG/3 ML NEBU ONE (16:16)
[2020-12-27 16:19] LABS: CREATININE 0.8 mg/dL (0.6-1.3); POTASSIUM 4.4 mmol/L (3.5-5.1)
[2020-12-27 16:23] LABS: BILIRUBIN,DIRECT 0.1 mg/dL (0.0-0.2); BILIRUBIN,TOTAL 0.2 mg/dL (0.2-1.0); TOTAL PROTEIN, SERUM 7.5 g/dL (6.4-8.2)
[2020-12-27] MEDS ORDERED: INSULIN REGULAR, HUMAN 300 UNIT/3 ML VIAL SQ ONE (16:45)
[2020-12-27] MEDS ORDERED: MORPHINE SULFATE IR 30 MG TABLET ONE (17:23)
[2020-12-27] MEDS ORDERED: MORPHINE SULFATE 4 MG/1 ML DISP.SYRIN ONE (17:25)
[2020-12-27] MEDS ORDERED: MORPHINE SULFATE 4 MG/1 ML DISP.SYRIN IM ONE (17:30)
[2020-12-27] MEDS ORDERED: INSULIN REGULAR, HUMAN 300 UNIT/3 ML VIAL ONE (18:15)
--- NOTE | 2020-12-27 18:18 | NUR ---
Called report to RAGHAV Forrest
--- NOTE | 2020-12-27 18:38 | NUR ---
45 year old male received to room 314 for chest pain ,pt is axox4 vs are stable call light with in reach orient the pt to room and surroundings . made aware for the admission orders
[2020-12-27 18:46] VITALS: BP 138/90
--- NOTE | 2020-12-27 19:30 | NUR ---
patient called and verbalized pain nto his left leg ,like grinding pain pain level 8/10. he said he takes morphine liquid in the nursing facility . called primary md for orders .
[2020-12-27] MEDS: HYDROMORPHONE 1 MG/1 ML DISP.SYRIN IV PRN (19:49)
--- NOTE | 2020-12-27 19:49 | NUR ---
given Dilaudid for pain . 03/19 left leg . advised patient to call for assistance and to used the call magallanes ,michael placed with in reach .
[2020-12-27 20:00] VITALS: BP 124/91
--- NOTE | 2020-12-27 20:00 | NUR ---
patient wants something to eat he said his starving . informed that his a diabetic he said he does not follow diabetic diet and his on double portion large regular diet .
--- NOTE | 2020-12-27 20:00 | NUR ---
d/c right forearm heplock as per patient request ,patient with newly inserted left ac midline .
[2020-12-27] MEDS ORDERED: ALBUTEROL SULFATE 2.5 MG/3 ML NEBU NEB PRN (20:15)
[2020-12-27] MEDS ORDERED: IPRATROPIUM BROMIDE 0.5 MG/2.5 ML NEBU NEB PRN (20:15)
[2020-12-27] MEDS ORDERED: BISACODYL 10 MG SUPP.RECT RC PRN (20:15)
[2020-12-27] MEDS ORDERED: CYCLOBENZAPRINE HCL 10 MG TABLET PO PRN (20:15)
[2020-12-27] MEDS ORDERED: ACETAMINOPHEN 325 MG TABLET PO PRN ×2 (20:15→20:30)
[2020-12-27] MEDS ORDERED: LORAZEPAM 0.5 MG TABLET PO PRN (20:15)
[2020-12-27] MEDS ORDERED: diphenhydrAMINE 25 MG CAP PO PRN (20:15)
[2020-12-27] MEDS ORDERED: MELATONIN 3 MG TABLET PO PRN (20:15)
[2020-12-27] MEDS ORDERED: DEXTROSE 50% 50 ML DISP.SYRIN IV PRN (20:30)
[2020-12-27] MEDS: BLOOD SUGAR DIAGNOSTIC 1 EACH STRIP VI SCH (21:00)
--- NOTE | 2020-12-27 22:00 | NUR ---
patient refused the hospital gown and wants belongings at b/s.
--- NOTE | 2020-12-27 22:00 | NUR ---
DRGume BUSTAMANTE came and visited patient as per MEAGHAN BUSTAMANTE patient in bed sleeping soundly .spoked to TRAY na dinformed patient was medicated with dilaudid for pain , as per TRAY he will come tomorrow.
[2020-12-27] MEDS: ATORVASTATIN 40 MG TABLET PO SCH (22:47)
[2020-12-27] MEDS: INSULIN REGULAR, HUMAN 300 UNITS/3 ML VIAL SQ PRN (23:07)
[2020-12-27] MEDS: INSULIN GLARGINE,HUM 300 UNITS/3 ML CARTRIDGE SQ SCH (23:16)
[2020-12-28] MEDS: HYDROMORPHONE 1 MG/1 ML DISP.SYRIN IV PRN ×5 (03:49→21:28)
[2020-12-28 04:35] VITALS: BP 118/75
--- NOTE | 2020-12-28 05:08 | NUR ---
collected urine and send to lab .
[2020-12-28 05:13] LABS: *BILIRUBIN,URIN NEGATIVE (NEGATIVE); *CLARITY,URINE CLOUDY (CLEAR); *COLOR,URINE YELLOW (YELLOW); *KETONES,URINE 1+ (NEGATIVE); LEUKOCYTE ESTERASE ,URINE TRACE (NEGATIVE); NITRITE, URINE POSITIVE (NEGATIVE)
[2020-12-28 05:30] LABS: *BLOOD, URINE TRACE (NEGATIVE); UGLUCOSE 2+ (NEGATIVE)
[2020-12-28 05:34] LABS: BACTERIA,URINE MANY /HPF (NONE SEEN); SQUAMOUS EPITHELIAL CELL,UR FEW /HPF (NONE SEEN); WBC,URINE 80-100 /HPF (0-3); YEAST,URINE PSEUDOHYPHAE /HPF (NONE SEEN)
--- NOTE | 2020-12-28 06:13 | NUR ---
burlap roll coverer at b/s for am labs as per burlap roll coverer patient refused lab draw.advised to came back later .
[2020-12-28 08:00] VITALS: BP 119/63
--- NOTE | 2020-12-28 08:00 | NUR ---
received change of shift report on pt, pt a/ox4 on tele monitor NSR, on room air, no signs of distress, no reports of pain, pt ambulatory, voids via odom, BRP, IV access on left upper arm midline. call light within reach, bed low and locked.
[2020-12-28] MEDS: BLOOD SUGAR DIAGNOSTIC 1 EACH STRIP VI SCH ×4 (08:41→22:16)
[2020-12-28] MEDS: FLUTICASONE/VILANTEROL 1 EACH BLST.W.DEV IH SCH (08:42)
[2020-12-28] MEDS: GABAPENTIN 300 MG CAPSULE PO SCH ×4 (08:43→17:26)
[2020-12-28] MEDS: MULTIVITAMINS,THERAPEUTIC TABLET PO SCH (08:43)
[2020-12-28] MEDS: CHOLECALCIFEROL 1,000 UNIT TABLET PO SCH (08:43)
[2020-12-28] MEDS: ASPIRIN EC 81 MG TABLET.DR PO SCH (08:45)
[2020-12-28] MEDS: LISINOPRIL 10 MG TABLET PO SCH (08:45)
[2020-12-28] MEDS: DIVALPROEX 500 MG TABLET.DR PO SCH ×4 (08:46→17:26)
[2020-12-28] MEDS: FAMOTIDINE 20 MG TABLET PO SCH (08:46)
[2020-12-28] MEDS: FUROSEMIDE 40 MG TABLET PO SCH (08:46)
[2020-12-28] MEDS: ASCORBIC ACID 500 MG TABLET PO SCH (08:46)
[2020-12-28] MEDS: levETIRAcetam 500 MG TABLET PO SCH ×3 (08:46→17:26)
[2020-12-28] MEDS: ESCITALOPRAM OXALATE 10 MG TABLET PO SCH (08:47)
[2020-12-28] MEDS: ZINC SULFATE 220 MG CAPSULE PO SCH (08:47)
[2020-12-28] MEDS: INSULIN GLARGINE,HUM 300 UNITS/3 ML CARTRIDGE SQ SCH ×2 (08:49→21:33)
[2020-12-28] MEDS: INSULIN REGULAR, HUMAN 300 UNIT/3 ML VIAL SQ PRN ×3 (08:51→17:32)
[2020-12-28] MEDS ORDERED: TICAGRELOR 90 MG TABLET PO SCH ×2 (09:00)
[2020-12-28] MEDS: levoFLOXacin 750MG/D5W 750 MG in PREMIXED 1 EACH IV SCH (10:26)
[2020-12-28 10:35] LABS: BASOPHILS % (AUTO) 0.3 % (0.0-2.0); EOSINOPHILS # (AUTO) 0.2 K/uL (0.0-0.7); EOSINOPHILS % (AUTO) 1.8 % (0.0-7.0); HEMATOCRIT 41.6 % (36.7-47.1); HEMOGLOBIN 13.9 g/dL (12.5-16.3); LYMPHOCYTES # (AUTO) 2.5 K/uL (20.0-40.0); LYMPHOCYTES % (AUTO) 22.8 % (20.5-51.5); MEAN CORPUSCULAR HEMOGLOBIN 30.5 uug (23.8-33.4); MEAN CORPUSCULAR HGB CONC 33 g/dL (32.5-36.3); MEAN CORPUSCULAR VOLUME 91.4 fL (73.0-96.2); MONOCYTES # (AUTO) 1.1 K/uL (2.0-10.0); MONOCYTES % (AUTO) 9.8 % (0.0-11.0); NEUTROPHILS # (AUTO) 7.2 K/uL (1.8-8.9); NEUTROPHILS % (AUTO) 65.3 % (38.5-71.5); PLATELET COUNT (AUTO) 276 K/uL (152-348); RED BLOOD CELL COUNT(AUTO) 4.55 MIL/uL (4.06-5.63)
[2020-12-28 10:49] LABS: ALANINE AMINOTRANSFERASE 57 U/L (16-63); ALKALINE PHOSPHATASE 183 U/L (50-136); ASPARTATE AMINOTRANSFERASE 32 U/L (15-37); BILIRUBIN,TOTAL 0.4 mg/dL (0.2-1.0); CARBON DIOXIDE 27 mmol/L (21-32); CHLORIDE 98 mmol/L (98-107); CREATININE 0.6 mg/dL (0.6-1.3); GLUCOSE 244 mg/dL (74-106); MAGNESIUM 2.2 mg/dL (1.8-2.4); PHOSPHOROUS 3.2 mg/dL (2.5-4.9); POTASSIUM 4.6 mmol/L (3.5-5.1); TOTAL PROTEIN, SERUM 6.8 g/dL (6.4-8.2); UREA NITROGEN, BLOOD 9 mg/dL (7-18)
[2020-12-28 11:02] LABS: CHOLESTEROL 155 mg/dL (<200); HDL CHOLESTEROL 38 mg/dL (40-60); TRIGLYCERIDES 90 MG/DL (30-150)
[2020-12-28] MEDS: ONDANSETRON 4 MG/2 ML VIAL IV PRN (13:48)
[2020-12-28 16:00] VITALS: BP 142/79
[2020-12-28] MEDS: TICAGRELOR 90 MG TABLET PO ONE ×2 (17:00→17:26)
--- NOTE | 2020-12-28 17:25 | NUR ---
conveyor monitor dc'd
--- NOTE | 2020-12-28 18:59 | NUR ---
pt in bed resting, resting, refused 1700 medications. pt a/ox4, on room air, no signs of distress, no reports of pain at this time. pt ambulatory with BRP, pt has odom, IV access on the upperarm midline. bed low and locked, safety precautions in place, will endorse to oncoming nurse
--- NOTE | 2020-12-28 20:00 | NUR ---
Patient alert oriented, no sob no chest pain, with episode of vomiting with clear to brown color vomitus, in moderate amount, instructed not eat or drink at this time, refused vital sign at first but able to convince to have vital sign taken, cont on pain management due leg pain. Patient has multiple episode of non compliant with care and medications, MD aware, cont to monitor.
[2020-12-28 20:19] VITALS: BP 153/93
[2020-12-28] MEDS ORDERED: TICA60TA PO (20:59)
[2020-12-28] MEDS: ATORVASTATIN 40 MG TABLET PO SCH (21:00)
[2020-12-28] MEDS: INSULIN REGULAR, HUMAN 300 UNITS/3 ML VIAL SQ PRN (21:34)
[2020-12-29] MEDS: HYDROMORPHONE 1 MG/1 ML DISP.SYRIN IV PRN ×7 (01:09→23:10)
[2020-12-29] MEDS: ONDANSETRON 4 MG/2 ML VIAL IV PRN ×6 (01:09→21:34)
[2020-12-29 04:25] VITALS: BP 140/86
[2020-12-29] MEDS ORDERED: METOCLOPRAMIDE HCL 10 MG/2 ML VIAL IV ONE (05:00)
[2020-12-29] MEDS: BLOOD SUGAR DIAGNOSTIC 1 EACH STRIP VI SCH ×4 (05:15→20:37)
--- NOTE | 2020-12-29 05:32 | NUR ---
Patient has another episode of vomiting black brown vomitus, notify Farooq Coombs Quilting Supervisor with order Reglan 10mg IV and NPO at this time. Patient cont on pain management due leg pain, cooling measure given due low grade temp. cont to monitor.
[2020-12-29 08:11] VITALS: BP 130/70
[2020-12-29] MEDS: ASPIRIN EC 81 MG TABLET.DR PO SCH ×2 (08:44→09:00)
[2020-12-29] MEDS: FAMOTIDINE 20 MG TABLET PO SCH ×2 (08:44→09:00)
[2020-12-29] MEDS: ASCORBIC ACID 500 MG TABLET PO SCH ×2 (08:44→09:00)
[2020-12-29] MEDS: levETIRAcetam 500 MG TABLET PO SCH ×2 (08:45→09:00)
[2020-12-29] MEDS: GABAPENTIN 300 MG CAPSULE PO SCH ×4 (08:45→17:00)
[2020-12-29] MEDS: DIVALPROEX 500 MG TABLET.DR PO SCH ×4 (08:45→17:00)
[2020-12-29] MEDS: CHOLECALCIFEROL 1,000 UNIT TABLET PO SCH ×2 (08:46→09:00)
[2020-12-29] MEDS: LISINOPRIL 10 MG TABLET PO SCH ×2 (08:46→09:00)
[2020-12-29] MEDS: ZINC SULFATE 220 MG CAPSULE PO SCH ×2 (08:46→09:00)
--- NOTE | 2020-12-29 08:50 | NUR ---
patient calling for pain medication 03/19 leg, back and abdominal pain. reported from marriage therapist nurse that patient has had multiple episodes of vomiting. emesis dark in color. marriage therapist doctor placed on npo status. zofran given prior to giving morning meds. patient attempted to drink meds with water and projectile vomit coffee ground color emesis. reported to dr. hanson that patient does not even tolerate medication, continues to have episodes of vomiting and has history of seizures and no IVF on board and is diabetic. waiting for orders and call back
[2020-12-29] MEDS: ESCITALOPRAM OXALATE 10 MG TABLET PO SCH ×2 (08:54→09:00)
[2020-12-29] MEDS: MULTIVITAMINS,THERAPEUTIC TABLET PO SCH ×2 (08:54→09:00)
[2020-12-29] MEDS: levoFLOXacin 750MG/D5W 750 MG in PREMIXED 1 EACH IV SCH (08:55)
[2020-12-29] MEDS: INSULIN GLARGINE,HUM 300 UNITS/3 ML CARTRIDGE SQ SCH ×2 (09:00→20:40)
[2020-12-29] MEDS: FLUTICASONE/VILANTEROL 1 EACH BLST.W.DEV IH SCH (09:00)
[2020-12-29] MEDS ORDERED: BRILINTA 60 MG PO SCH (09:00)
[2020-12-29] MEDS: FUROSEMIDE 40 MG TABLET PO SCH (09:00)
[2020-12-29] MEDS ORDERED: TICAGRELOR 60 MG TABLET PO SCH (11:30)
[2020-12-29 11:38] VITALS: BP 139/95
[2020-12-29] MEDS: INSULIN REGULAR, HUMAN 300 UNIT/3 ML VIAL SQ PRN ×2 (11:49→17:26)
[2020-12-29] MEDS: PANTOPRAZOLE SODIUM 40 MG VIAL IV SCH ×2 (13:07→20:25)
[2020-12-29] MEDS ORDERED: VANCOMYCIN IV 2,000 MG in IV DEXTROSE 5% 500 ML IV ONE (14:00)
[2020-12-29 16:00] VITALS: BP 140/91
[2020-12-29] MEDS: LORAZEPAM 2 MG/1 ML VIAL IV PRN (17:17)
[2020-12-29 20:00] VITALS: BP 135/75
[2020-12-29] MEDS ORDERED: VANCOMYCIN IV 1,500 MG in IV DEXTROSE 5% 500 ML IV SCH (20:00)
[2020-12-29] MEDS ORDERED: VANCOMYCIN IV 1,250 MG in IV DEXTROSE 5% 250 ML IV SCH (20:00)
[2020-12-29] MEDS: VANCOMYCIN IV 1,000 MG in IV DEXTROSE 5% 250 ML IV SCH (20:24)
[2020-12-29] MEDS: ATORVASTATIN 40 MG TABLET PO SCH (20:25)
[2020-12-29] MEDS: levETIRAcetam IV 1,000 MG in IV DEXTROSE 5% 100 ML IV SCH (20:25)
[2020-12-29] MEDS: INSULIN REGULAR, HUMAN 300 UNITS/3 ML VIAL SQ PRN (20:41)
[2020-12-29] MEDS ORDERED: LORAZEPAM 2 MG/1 ML VIAL IV ONE (21:00)
[2020-12-30] MEDS: LORAZEPAM 2 MG/1 ML VIAL IV PRN ×3 (01:08→21:30)
[2020-12-30] MEDS: VANCOMYCIN IV 1,000 MG in IV DEXTROSE 5% 250 ML IV SCH ×2 (01:54→09:28)
[2020-12-30] MEDS: HYDROMORPHONE 1 MG/1 ML DISP.SYRIN IV PRN ×5 (02:00→23:27)
[2020-12-30] MEDS: ONDANSETRON 4 MG/2 ML VIAL IV PRN ×2 (02:09→08:36)
[2020-12-30 04:00] VITALS: BP 120/67
[2020-12-30] MEDS: NICOTINE 7 MG/24HR PATCH TD SCH (05:00)
--- NOTE | 2020-12-30 06:01 | NUR ---
Pt called many times throughout the night for Dilaudid, Ativan and Zofran. Was educated on the times that these medications were due, pt still kept asking for Dilaudid, exhibiting drug seeking behavior. Informed this nurse that he needs to leave for a cigarette and was educated that he cannot leave the hospital at this time, but a nicotine patch could be ordered for him. Pt agreed. Exhibits needy behavior. Kept asking for back rubs and for this nurse to sit in the room with him throughout the night. Pt was informed that this nurse was not able to sit in the room with him throughout the night, pt understood. Requested for SCDs, and they were provided to patient. Safety and comfort provided throughout shift, call light within reach. No other issues or concerns at this time, will endorse to day shift.
[2020-12-30] MEDS: BLOOD SUGAR DIAGNOSTIC 1 EACH STRIP VI SCH ×4 (06:47→21:06)
--- NOTE | 2020-12-30 08:15 | NUR ---
Patient asking for pain medication. VS 113/61, 91 bpm spo2 99%. No acute distress.
[2020-12-30] MEDS: ASPIRIN EC 81 MG TABLET.DR PO SCH (08:43)
[2020-12-30] MEDS: ESCITALOPRAM OXALATE 10 MG TABLET PO SCH (08:43)
[2020-12-30] MEDS: FLUTICASONE/VILANTEROL 1 EACH BLST.W.DEV IH SCH (08:43)
[2020-12-30] MEDS: LISINOPRIL 10 MG TABLET PO SCH (08:43)
[2020-12-30] MEDS: GABAPENTIN 300 MG CAPSULE PO SCH ×3 (08:43→16:47)
[2020-12-30] MEDS: DIVALPROEX 500 MG TABLET.DR PO SCH ×3 (08:43→16:47)
[2020-12-30] MEDS: ASCORBIC ACID 500 MG TABLET PO SCH (08:44)
[2020-12-30] MEDS: MULTIVITAMINS,THERAPEUTIC TABLET PO SCH (08:44)
[2020-12-30] MEDS: CHOLECALCIFEROL 1,000 UNIT TABLET PO SCH (08:44)
[2020-12-30] MEDS: ZINC SULFATE 220 MG CAPSULE PO SCH (08:44)
--- NOTE | 2020-12-30 08:50 | NUR ---
Patient refusing some medications risks and benefits explained but patient adamantly refused. Dr. Hermann blakely.
--- NOTE | 2020-12-30 09:00 | NUR ---
Patient had episode of seizure noted 30 seconds while on wc. Patient safely transferred to bed with charge nurse and district court judge. VS take 117/81, 92bpm, spo2 99%, 20. Breathing non labored. Body check done noted no visible injuries, no bowel movement noted. Patient remains alert and able to make needs known. Will continue to monitor. Dr. Mccrary aware.
[2020-12-30] MEDS: FUROSEMIDE 40 MG/4 ML VIAL IV SCH (09:12)
[2020-12-30] MEDS: INSULIN GLARGINE,HUM 300 UNITS/3 ML CARTRIDGE SQ SCH ×2 (09:12→21:10)
[2020-12-30] MEDS: PANTOPRAZOLE SODIUM 40 MG VIAL IV SCH ×2 (09:13→21:15)
[2020-12-30] MEDS: levETIRAcetam IV 1,000 MG in IV DEXTROSE 5% 100 ML IV SCH ×2 (09:24→21:00)
--- NOTE | 2020-12-30 10:21 | NUR ---
See and examined by Dr. Mccrary with new order for Dilaudid 1mg x1 dose now and Ativan 1 mg IV one dose now ok to be given together. Patient explained risks and benefits by Dr. Mccrary but he is adamant.
[2020-12-30] MEDS ORDERED: HYDROMORPHONE 1 MG/1 ML DISP.SYRIN IV ONE (10:30)
[2020-12-30] MEDS ORDERED: LORAZEPAM 2 MG/1 ML VIAL IV ONE (10:30)
--- NOTE | 2020-12-30 10:41 | NUR ---
Patient in his wheelchair despite explanation of risks and benefits. Explained seizure episode but patient is not cooperative. VS taken prior to ativan and dilaudid as follows: 98.5 139/87, 92, rr18, 97% on room air. Patient encouraged to go back to bed but he refuses. Risks and benefits are explained. Will continue to monitor.
[2020-12-30 11:00] VITALS: BP 151/95
[2020-12-30] MEDS ORDERED: LORAZEPAM 2 MG/1 ML VIAL IV PRN (11:30)
--- NOTE | 2020-12-30 11:30 | NUR ---
Patient still anxious, wheeling himself in the hallways and going downstairs despite being asked repeatedly to stay in his room. Patient is non compliant and mean. Charge nurse informed Dr. Mccrary with order to give Ativan 1mg IV one time noted and carried out. VS taken as follows: 151/95 108 98.4 18 97% on room air. Will continue to monitor.
--- NOTE | 2020-12-30 12:00 | NUR ---
Per Dr calvo pt is ok to go down to patio.
--- NOTE | 2020-12-30 12:00 | NUR ---
Patient on wheelchair not cooperative wants to go downstairs. Patient explained that he just received Ativan medication explained risks but he is adamant and belligerent. Charge nurse explained to patient also but he is not cooperative. Dr. Mccrary is aware. Will continue to monitor.
[2020-12-30] MEDS: INSULIN REGULAR, HUMAN 300 UNIT/3 ML VIAL SQ PRN ×2 (12:11→16:55)
[2020-12-30] MEDS ORDERED: ATOR20TA PO (12:26)
[2020-12-30] MEDS ORDERED: Blood Sugar Diagnostic VI (12:26)
[2020-12-30] MEDS ORDERED: DEXT50DI8 IV (12:26)
[2020-12-30] MEDS ORDERED: Insulin Glargine,Hum SQ (12:26)
[2020-12-30] MEDS ORDERED: PANT40TA2 PO (12:26)
[2020-12-30] MEDS ORDERED: RXVAN XX (12:26)
[2020-12-30] MEDS ORDERED: INSU100V28 SQ ×2 (12:26)
--- NOTE | 2020-12-30 12:30 | NUR ---
Patient refused to eat lunch and refused PO medications. Dr. Mccrary is aware.
[2020-12-30] MEDS ORDERED: ASPI-1100 PO (12:36)
[2020-12-30] MEDS ORDERED: NITR100C11 PO (12:47)
--- NOTE | 2020-12-30 13:25 | NUR ---
Spoke with DR Calvo notified that pt going down to patio after taking his narcotics. DR calvo spoke with patient re: not to go down for his safety and for nursing to monitor patient.
[2020-12-30] MEDS ORDERED: MEPERIDINE 25 MG/1 ML DISP.SYRIN IM ONE (14:00)
--- NOTE | 2020-12-30 14:44 | NUR ---
Demerol administered per MD ordered on right deltoid. Patient in no acute distress. Will continue to monitor.
--- NOTE | 2020-12-30 14:55 | NUR ---
Pt wanting to go down to patio. Spoke with pt that it is not safe to go down and that there is nobody to monitor him. Pt just got his demerol. Pt states I dont care im going down. Pt went down to patio again after getting his narcotics. Notified DR calvo that his patient is playing games and that he is going to down to patio.
[2020-12-30 16:00] VITALS: BP 149/98
--- NOTE | 2020-12-30 16:35 | NUR ---
Called [facility] to give report but no one answered. Informed career information specialist that trying to give report but she kept transferring me and no one answers the call.
[2020-12-30] MEDS: VANCOMYCIN IV 2,000 MG in IV DEXTROSE 5% 500 ML IV SCH (17:52)
--- NOTE | 2020-12-30 18:58 | NUR ---
Patient sleeping comfortabl. Refused dinner. In no acute distress. Bed is low and locked. Call light in reach.
--- NOTE | 2020-12-30 19:00 | NUR ---
Received pt in no acute distress. Iv intact. Safety and comfort provided. Will continue to monitor.
[2020-12-30 20:18] VITALS: BP 123/61
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
[2020-12-30] MEDS: ATORVASTATIN 40 MG TABLET PO SCH (20:58)
[2020-12-30] MEDS: MUPIROCIN 2% OINT 22 GM TUBE NS SCH ×2 (21:00→21:16)
[2020-12-30] MEDS: INSULIN REGULAR, HUMAN 300 UNITS/3 ML VIAL SQ PRN (21:13)
[2020-12-31] MEDS ORDERED: diphenhydrAMINE 50 MG/1 ML VIAL IV PRN (00:15)
[2020-12-31] MEDS: HYDROMORPHONE 1 MG/1 ML DISP.SYRIN IV PRN ×4 (02:27→10:57)
[2020-12-31 04:18] VITALS: BP 118/68
[2020-12-31] MEDS: VANCOMYCIN IV 2,000 MG in IV DEXTROSE 5% 500 ML IV SCH (05:48)
[2020-12-31] MEDS ORDERED: VANCOMYCIN IV 400 ML ONE (05:48)
--- NOTE | 2020-12-31 06:17 | NUR ---
PT REFUSING VACATION PLANNER TO DRAW BLOOD. PT REFUSED TO DO HIS BLOOD SUGAR CHECKED AND ALLOW STAFF TO PUT PADDED RAILS ON ONE SIDE OF HIS BED ONLY. CHARGE NURSE AWARE.
[2020-12-31] MEDS: LORAZEPAM 2 MG/1 ML VIAL IV PRN ×2 (06:30→10:57)
[2020-12-31] MEDS: BLOOD SUGAR DIAGNOSTIC 1 EACH STRIP VI SCH (06:36)
--- NOTE | 2020-12-31 06:36 | NUR ---
PT SLEPT INTERMITTENTLY. PT IN NO ACUTE DISTRESS. IV INTACT.PT WAS GIVEN DILAUDID AT 2026H 1MG FOR RIGHT LEG PAIN. PT TOLERATED IT WELL. PT REQUESTING TO HAVE HIS ATIVAN PRN AT THE SAME TIME. EXPLAINED TO THE PT WE CAN'T GIVE AT THE SAME TIME. AT 2029H WE CALLED ARIEL ZAMORANO FOR THE PT. PT THREATENING STAFF THAT HE WILL HIT US IF WE DON'T DO WHAT HE WANTS. PT REFUSED LIPITOR 40MG AT 2100H AND BACTROBAN FOR HIS NARES. HE STATED: "I WILL JUST USE IT TOMORROW. " EXPLAINED TO THE PT THE BENEFIT OF BACTROBAN OINTMENT . PT GIVEN ATIVAN 0.5MG PRN AT 2130H AFTER AN HOUR PT SLEPT FOR A BIT AND CALM DOWN. VITAL SIGNS WNL. AT 232H PT WAS GIVEN DILAUDID PRN FOR HIS PAIN . PT TOLERATED IT WELL. PT DEMANDING TO SOMEONE SIT NEXT TO HIM. STAFF GRANTED HIS REQUEST BUT TOLD HIM NOT THE WHOLE TIME. AT 0227H PT WAS GIVEN DILAUDID 1MG PRN FOR PAIN AND BENADRYL IV 25MG PRN FOR ITCHINESS. VITAL SIGNS STABLE. PT TOLERATED IT WELL. PT GIVEN DILAUDID PRN AT 0530H. PT REFUSED FOR HIS BLOOD SUGAR CHECKED. AT 0630H PT ANXIOUS AND WAS GIVEN ATIVAN PRN. PT VITAL SIGNS STABLE. PRESCRIBED MEDICATION GIVEN AND PT TOLERATED IT WELL. SAFETY AND COMFORT PROVIDED. ALL NEEDS ARE MET. WILL ENDORSE TO INCOMING NURSE FOR CONTINUITY OF CARE.
[2020-12-31] MEDS: ONDANSETRON 4 MG/2 ML VIAL IV PRN (08:15)
[2020-12-31] MEDS: ASPIRIN EC 81 MG TABLET.DR PO SCH (08:36)
[2020-12-31] MEDS: DIVALPROEX 500 MG TABLET.DR PO SCH (08:36)
[2020-12-31] MEDS: GABAPENTIN 300 MG CAPSULE PO SCH (08:37)
[2020-12-31] MEDS: LISINOPRIL 10 MG TABLET PO SCH (08:37)
[2020-12-31] MEDS: ASCORBIC ACID 500 MG TABLET PO SCH (08:37)
[2020-12-31] MEDS: ESCITALOPRAM OXALATE 10 MG TABLET PO SCH (08:37)
[2020-12-31] MEDS: MULTIVITAMINS,THERAPEUTIC TABLET PO SCH (08:37)
[2020-12-31] MEDS: ZINC SULFATE 220 MG CAPSULE PO SCH (08:38)
[2020-12-31] MEDS: CHOLECALCIFEROL 1,000 UNIT TABLET PO SCH (08:38)
[2020-12-31] MEDS: levETIRAcetam IV 1,000 MG in IV DEXTROSE 5% 100 ML IV SCH ×2 (08:47→09:00)
[2020-12-31] MEDS: PANTOPRAZOLE SODIUM 40 MG VIAL IV SCH (08:47)
[2020-12-31] MEDS: FUROSEMIDE 40 MG/4 ML VIAL IV SCH (08:47)
[2020-12-31] MEDS: MUPIROCIN 2% OINT 22 GM TUBE NS SCH (08:49)
[2020-12-31] MEDS: FLUTICASONE/VILANTEROL 1 EACH BLST.W.DEV IH SCH (09:00)
[2020-12-31] MEDS: NICOTINE 7 MG/24HR PATCH TD SCH (09:05)
[2020-12-31] MEDS: INSULIN GLARGINE,HUM 300 UNITS/3 ML CARTRIDGE SQ SCH (09:45)
[2020-12-31] MEDS: INSULIN REGULAR, HUMAN 300 UNIT/3 ML VIAL SQ PRN (09:46)
--- NOTE | 2020-12-31 11:25 | NUR ---
Patient discharge around 11am to [facility] in stable condition via taxi. Patient given dilaudid and ativan IV prior to discharge for anxiety and back pain as per MD Mccrary agree. Patient report given to RN in facility. Patient discharge instruction relay to patient, verbalize understanding. not in distress. Patient will continue IV on left AC for continue IV therapy in facility. Patient refuse skin assessment and taking picture.
== END 2020-12-31 11:15 | DRG 872 ==
LOC: ER 15:00 → TELE3 18:01 → MEDSURG3 12-28 17:30
PROVIDERS: ADMIT Internal Medicine; ATTEND Internal Medicine
PROC: 05H633Z Insertion of Infusion Device into Left Subclavian Vein, Percutaneous Approach (ICD-10-PCS; principal; 2020-12-27)
PROC: B547ZZA Ultrasonography of Left Subclavian Vein, Guidance (ICD-10-PCS; 2020-12-27)
DX: A41.9 Sepsis, unspecified organism (principal); N39.0 Urinary tract infection, site not specified; D68.59 Other primary thrombophilia; E44.1 Mild protein-calorie malnutrition; E87.1 Hypo-osmolality and hyponatremia; I50.32 Chronic diastolic (congestive) heart failure; F11.20 Opioid dependence, uncomplicated; E11.65 Type 2 diabetes mellitus with hyperglycemia; Z79.4 Long term (current) use of insulin; G40.909 Epilepsy, unspecified, not intractable, without status epilepticus; K29.70 Gastritis, unspecified, without bleeding; K21.00 Gastro-esophageal reflux disease with esophagitis, without bleeding; E66.01 Morbid (severe) obesity due to excess calories; E78.5 Hyperlipidemia, unspecified; E88.81 Metabolic syndrome and other insulin resistance; F32.9 Major depressive disorder, single episode, unspecified; F43.10 Post-traumatic stress disorder, unspecified; F90.9 Attention-deficit hyperactivity disorder, unspecified type; G47.33 Obstructive sleep apnea (adult) (pediatric); G89.4 Chronic pain syndrome; I11.0 Hypertensive heart disease with heart failure; I25.10 Atherosclerotic heart disease of native coronary artery without angina pectoris; Z20.822 Contact with and (suspected) exposure to COVID-19; Z90.49 Acquired absence of other specified parts of digestive tract; B95.2 Enterococcus as the cause of diseases classified elsewhere; M19.90 Unspecified osteoarthritis, unspecified site; Z91.19 Patient's noncompliance with other medical treatment and regimen; Z87.891 Personal history of nicotine dependence; E86.1 Hypovolemia; F39 Unspecified mood [affective] disorder; Z79.899 Other long term (current) drug therapy; Z85.830 Personal history of malignant neoplasm of bone; Z79.82 Long term (current) use of aspirin; Z68.39 Body mass index [BMI] 39.0-39.9, adult; B95.62 Methicillin resistant Staphylococcus aureus infection as the cause of diseases classified elsewhere; N40.1 Benign prostatic hyperplasia with lower urinary tract symptoms
CPT/HCPCS: 36415; 70030-TC; 71045; 74018; 83605; 83735; 84100; 84443; 85025; 85730; 87040; 87077; 87086; 93005; A4663; A9150; C9113; G0378; J1170; J1200; J1815; J1940; J1953; J1956; J2060; J2175; J2270; J2405; J2765; J3370; J3490; J3590; J7050; J7060

== ENCOUNTER 2021-03-07 11:35 | Inpatient (IN) | payer MEDICARE, OTHER ==
[~2021-03-07] VITALS: Ht 177.8 cm; Wt 127.0 kg
[~2021-03-07 11:35] MED LIST changes: +ASCO500P18 PO; +ASPI-1100 PO; -ASPI-618 PO; +ATOR20TA PO; -ATOR40TA PO; +Blood Sugar Diagnostic VI; +CHOL500050 PO; +DEXT15DR6 EACHEYE; +DEXT50DI8 IV; +DIPH25CA83 PO; -Dronabinol PO; +ESCI10TA PO; -FAMO-132 PO; +FURO-151 PO; -FURO20TA4 PO; +INSU100V28 SQ; +Insulin Glargine,Hum SQ; -LEVO500T90 PO; +LORA-258 PO; -LORA-259 PO; +MELA3TAB41 PO; -MORP30TA2 PO; -MUPI22OI2 NS; +NALO0.4D4 BNOSTRILS; -NALO0.4D4 IJ; +NITR100C11 PO; +PANT40TA2 PO; +RXVAN XX; -TICA90TA PO; -VENL75TA4 PO; +ZINC50TA65 PO
[2021-03-07] MEDS ORDERED: ONDANSETRON 4 MG/2 ML VIAL IV ONE (12:15)
[2021-03-07] MEDS ORDERED: MORPHINE SULFATE 2 MG/1 ML DISP.SYRIN IV ONE (12:15)
--- NOTE | 2021-03-07 12:24 | NUR ---
Attempted to place HL on pt x3, unable to. Dr caldera checked w/ U/S, unable to get access. Called Nursing complaint supervisor for mid/PICC line placement.
[2021-03-07 12:53] LABS: CARBON DIOXIDE 21 mmol/L (21-32); CHLORIDE 100 mmol/L (98-107); CREATININE 0.8 mg/dL (0.6-1.3); GLUCOSE 239 mg/dL (74-106); POTASSIUM 4.5 mmol/L (3.5-5.1); UREA NITROGEN, BLOOD 35 mg/dL (7-18)
[2021-03-07 12:56] LABS: HEMATOCRIT 38.1 % (36.7-47.1); MEAN CORPUSCULAR HEMOGLOBIN 29.2 uug (23.8-33.4); MEAN CORPUSCULAR VOLUME 89.2 fL (73.0-96.2); PLATELET COUNT (AUTO) 333 K/uL (152-348)
[2021-03-07 13:00] LABS: ALANINE AMINOTRANSFERASE 56 U/L (16-63); ASPARTATE AMINOTRANSFERASE 25 U/L (15-37); BILIRUBIN,DIRECT 0.1 mg/dL (0.0-0.2); BILIRUBIN,TOTAL 0.3 mg/dL (0.2-1.0); LIPASE 36 U/L (73-393); TOTAL PROTEIN, SERUM 6.5 g/dL (6.4-8.2)
--- NOTE | 2021-03-07 13:06 | NUR ---
Pt back from CT, offered to have PO pain med, but declined.
[2021-03-07 13:13] LABS: ALKALINE PHOSPHATASE < 10 U/L (50-136)
[2021-03-07 13:16] LABS: *BILIRUBIN,URIN NEGATIVE (NEGATIVE); *BLOOD, URINE NEGATIVE (NEGATIVE); *CLARITY,URINE CLEAR (CLEAR); *COLOR,URINE YELLOW (YELLOW); *KETONES,URINE NEGATIVE (NEGATIVE); *UROBILINOGEN,URINE 0.2 E.U./dl (NORMAL); LEUKOCYTE ESTERASE ,URINE NEGATIVE (NEGATIVE); NITRITE, URINE NEGATIVE (NEGATIVE); PH,URINE 5.5 (5.0-8.0); UGLUCOSE NEGATIVE (NEGATIVE)
[2021-03-07] MEDS ORDERED: IV NORMAL SALINE 1000 ML BAG IV ONE (13:30)
[2021-03-07] MEDS ORDERED: levoFLOXacin 750MG/D5W 150 ML IV ONE ×2 (13:30→14:52)
--- NOTE | 2021-03-07 13:44 | NUR ---
ER spoke to Dr Zhou Pt to be admitted to M/S floor.
[2021-03-07] MEDS ORDERED: QUET25TA PO (13:58)
[2021-03-07] MEDS ORDERED: MORP60CA19 PO (13:58)
[2021-03-07] MEDS ORDERED: ALBU8.5H8 IH (13:58)
[2021-03-07] MEDS ORDERED: MORP10SY4 PO (13:58)
[2021-03-07] MEDS ORDERED: INSU100V7 SQ (13:58)
[2021-03-07] MEDS ORDERED: IPRA12.9 IH (13:58)
--- NOTE | 2021-03-07 14:30 | NUR ---
Midline to RUE placed by Arabella AVILEZ. Pt tolorated well. Able to flush w/ saline and radha blood cx from RUE midline.
[2021-03-07] MEDS ORDERED: HYDROMORPHONE 1 MG/1 ML DISP.SYRIN ONE ×2 (14:36→21:42)
[2021-03-07] MEDS ORDERED: ONDANSETRON 4 MG/2 ML VIAL ONE (14:36)
[2021-03-07] MEDS ORDERED: HYDROMORPHONE 1 MG/1 ML DISP.SYRIN IV ONE (14:45)
[2021-03-07] MEDS ORDERED: DEXTROSE 50% 50 ML DISP.SYRIN IV PRN (15:15)
[2021-03-07] MEDS ORDERED: ALBUTEROL SULFATE 2.5 MG/ 0.5 ML NEBU NEB PRN (15:15)
[2021-03-07] MEDS ORDERED: INSULIN GLARGINE,HUM 300 UNITS/3 ML CARTRIDGE SQ SCH (15:15)
[2021-03-07] MEDS ORDERED: ACETAMINOPHEN 650 MG SUPP.RECT RC PRN (15:15)
[2021-03-07] MEDS ORDERED: IPRATROPIUM BROMIDE 0.5 MG/2.5 ML NEBU NEB PRN (15:15)
[2021-03-07] MEDS: HYDROMORPHONE 1 MG/1 ML DISP.SYRIN IV PRN ×2 (15:25→19:39)
[2021-03-07] MEDS ORDERED: HYDROMORPHONE 2 MG/1 ML DISP.SYRIN ONE ×2 (15:29→19:39)
--- NOTE | 2021-03-07 16:05 | NUR ---
Patient is resting comfortably in bed with eyes closed, NAD noted.
[2021-03-07] MEDS: BLOOD SUGAR DIAGNOSTIC 1 EACH STRIP VI SCH (17:41)
[2021-03-07] MEDS: INSULIN REGULAR, HUMAN 300 UNIT/3 ML VIAL SQ PRN (17:47)
[2021-03-07] MEDS ORDERED: INSULIN REGULAR, HUMAN 300 UNIT/3 ML VIAL ONE (17:53)
--- NOTE | 2021-03-07 19:12 | NUR ---
Report recieved from RAGHAV Vick.
[2021-03-07] MEDS ORDERED: LORAZEPAM 2 MG/1 ML VIAL ONE (19:48)
[2021-03-07] MEDS: LORAZEPAM 2 MG/1 ML VIAL IV PRN (19:58)
[2021-03-07 20:12] LABS: *OCCULT BLOOD STOOL POSITIVE (NEGATIVE)
[2021-03-07] MEDS ORDERED: levETIRAcetam IV 1,000 MG in IV DEXTROSE 5% 100 ML IV SCH (21:00)
[2021-03-07] MEDS ORDERED: HYDROMORPHONE 1 MG/1 ML DISP.SYRIN IV STA (21:15)
[2021-03-07] MEDS: NORMAL SALINE IV SCH (21:30)
[2021-03-07] MEDS: LEVETIRACETAM IV SCH (21:30)
--- NOTE | 2021-03-07 21:30 | NUR ---
Gave 1000 mg Keppra IV in RUE midline
[2021-03-07] MEDS: VALPROATE SODIUM IV 500 MG in IV DEXTROSE 5% 100 ML IV SCH (22:27)
[2021-03-08] MEDS ORDERED: INSULIN GLARGINE,HUM 300 UNITS/3 ML CARTRIDGE SQ ONE (00:24)
[2021-03-08] MEDS: BLOOD SUGAR DIAGNOSTIC 1 EACH STRIP VI SCH ×4 (00:30→19:22)
[2021-03-08] MEDS: INSULIN GLARGINE,HUM 300 UNITS/3 ML CARTRIDGE SQ SCH ×3 (00:32→22:05)
[2021-03-08] MEDS: INSULIN REGULAR, HUMAN 300 UNIT/3 ML VIAL SQ PRN ×2 (00:44→07:16)
[2021-03-08] MEDS ORDERED: HYDROMORPHONE 2 MG/1 ML DISP.SYRIN ONE ×5 (00:54→15:28)
[2021-03-08] MEDS: IV D5/ 0.9% NACL 1,000 ML IV PRN ×2 (00:57→21:00)
[2021-03-08] MEDS: HYDROMORPHONE 2 MG/1 ML DISP.SYRIN IV PRN ×8 (01:13→22:11)
--- NOTE | 2021-03-08 02:55 | NUR ---
Pt. sleeping. Vss. No signs of distress. Will continue to monitor.
[2021-03-08] MEDS ORDERED: LORAZEPAM 2 MG/1 ML VIAL ONE ×2 (04:40→10:39)
[2021-03-08] MEDS: LORAZEPAM 2 MG/1 ML VIAL IV PRN ×3 (04:56→19:46)
--- NOTE | 2021-03-08 05:30 | NUR ---
Pt to go to room 329B
[2021-03-08 05:51] LABS: HEMATOCRIT 29.1 % (36.7-47.1); MEAN CORPUSCULAR HEMOGLOBIN 29.7 uug (23.8-33.4); MEAN CORPUSCULAR VOLUME 90.4 fL (73.0-96.2); PLATELET COUNT (AUTO) 330 K/uL (152-348)
[2021-03-08] MEDS: VALPROATE SODIUM IV 500 MG in IV DEXTROSE 5% 100 ML IV SCH ×3 (05:56→22:34)
[2021-03-08 06:33] LABS: THYROID STIMULATING HORMONE 2.495 mIU/mL (0.358-3.740)
[2021-03-08 06:39] LABS: BILIRUBIN,TOTAL 0.2 mg/dL (0.2-1.0); CREATININE 0.8 mg/dL (0.6-1.3); MAGNESIUM 2.1 mg/dL (1.8-2.4); PHOSPHOROUS 4.1 mg/dL (2.5-4.9); POTASSIUM 3.7 mmol/L (3.5-5.1); TOTAL PROTEIN, SERUM 5.7 g/dL (6.4-8.2)
[2021-03-08] MEDS: ONDANSETRON 4 MG/2 ML VIAL IV PRN ×2 (06:52→22:39)
[2021-03-08] MEDS ORDERED: ONDANSETRON 4 MG/2 ML VIAL ONE ×2 (06:56→12:32)
--- NOTE | 2021-03-08 07:50 | NUR ---
Called to give report, no nurse yet assigned to room. shipping and receiving associate SHYAMB
[2021-03-08] MEDS ORDERED: PANTOPRAZOLE SODIUM 40 MG VIAL ONE (09:24)
[2021-03-08] MEDS: PANTOPRAZOLE SODIUM 40 MG VIAL IV SCH (09:28)
[2021-03-08] MEDS: NORMAL SALINE IV SCH ×2 (09:40→21:06)
[2021-03-08] MEDS: LEVETIRACETAM IV SCH ×2 (09:40→21:06)
[2021-03-08] MEDS ORDERED: ONDANSETRON 4 MG/2 ML VIAL IV STA (12:25)
[2021-03-08] MEDS ORDERED: METRONIDAZOLE 500 MG/NS 100ML 100 ML IV ONE (14:43)
[2021-03-08] MEDS ORDERED: levoFLOXacin 750MG/D5W 150 ML IV ONE (14:43)
[2021-03-08] MEDS: METRONIDAZOLE 500 MG/NS 100ML 500 MG in PREMIXED 1 EACH IV SCH ×2 (14:58→23:48)
--- NOTE | 2021-03-08 15:09 | NUR ---
Pt states he felt "something rip" around the left inguinal canal.
[2021-03-08] MEDS: levoFLOXacin 750MG/D5W 750 MG in PREMIXED 1 EACH IV SCH (16:30)
--- NOTE | 2021-03-08 19:15 | NUR ---
ADMITTED a 45 yo male FROM [facility] WITH ADM DX OF BREAKTHROUGH SEIZURE AND COFFEE GROUND VOMITING. ROUTINE ADM VS TAKEN. REPORT GIVEN TO INFERTILITY MEDICAL ASSISTANT. SR ON MONITOR
--- NOTE | 2021-03-08 19:52 | NUR ---
Received patient in bed ALOx4.c/o getting anxious.Ativan given as ordered.O2 at 2 LPM via Nc.No s/s of distress noted. NSR on Tele.F/c in place draining well.Call light with in reach.Seizures precaution in place.Will continue to monitor.
[2021-03-08 20:00] VITALS: BP 161/99
[2021-03-09] MEDS: BLOOD SUGAR DIAGNOSTIC 1 EACH STRIP VI SCH ×5 (00:07→23:53)
[2021-03-09 00:08] VITALS: BP 131/98
[2021-03-09] MEDS: HYDROMORPHONE 2 MG/1 ML DISP.SYRIN IV PRN ×10 (01:13→23:57)
[2021-03-09] MEDS: HYDROMORPHONE 1 MG/1 ML DISP.SYRIN IV PRN (02:47)
[2021-03-09] MEDS: METRONIDAZOLE 500 MG/NS 100ML 500 MG in PREMIXED 1 EACH IV SCH ×3 (05:02→21:49)
[2021-03-09 05:14] VITALS: BP 130/78
[2021-03-09] MEDS: ONDANSETRON 4 MG/2 ML VIAL IV PRN ×3 (05:48→23:39)
[2021-03-09] MEDS: VALPROATE SODIUM IV 500 MG in IV DEXTROSE 5% 100 ML IV SCH ×3 (06:05→22:42)
--- NOTE | 2021-03-09 08:00 | NUR ---
AWAKE ALERT AND VERBALLY RESPONSIVE C/O ON AND OFF LOWER ABDOMINAL PAIN, DENIES NAUSEA AND VOMITING. CLOSELY MONITORED FOR BLEEDING. NO SEIZURE NOTED. SR ON MONITOR
[2021-03-09] MEDS: NICOTINE 14 MG/24HR PATCH TD SCH (08:22)
[2021-03-09] MEDS: LORAZEPAM 2 MG/1 ML VIAL IV PRN ×3 (08:23→21:09)
[2021-03-09] MEDS: PANTOPRAZOLE SODIUM 40 MG VIAL IV SCH (08:28)
[2021-03-09] MEDS: INSULIN GLARGINE,HUM 300 UNITS/3 ML CARTRIDGE SQ SCH ×2 (08:31→21:15)
[2021-03-09] MEDS: LEVETIRACETAM IV SCH ×2 (08:54→20:52)
[2021-03-09] MEDS: NORMAL SALINE IV SCH ×2 (08:54→20:52)
[2021-03-09 09:13] LABS: HEMATOCRIT 28.1 % (36.7-47.1); MEAN CORPUSCULAR HEMOGLOBIN 30.3 uug (23.8-33.4); MEAN CORPUSCULAR VOLUME 90.2 fL (73.0-96.2); PLATELET COUNT (AUTO) 332 K/uL (152-348)
[2021-03-09 09:23] LABS: CREATININE 0.7 mg/dL (0.6-1.3); POTASSIUM 3.6 mmol/L (3.5-5.1)
--- NOTE | 2021-03-09 10:30 | NUR ---
NOTED WITH LARGE BM BLACK IN COLOR WITH FOWL SMELL. CONTINUE OBSERVATION AND PAIN MANAGEMENT
[2021-03-09] MEDS: levoFLOXacin 750MG/D5W 750 MG in PREMIXED 1 EACH IV SCH (11:33)
[2021-03-09 12:00] VITALS: BP 129/85
[2021-03-09] MEDS: IV D5/ 0.9% NACL 1,000 ML IV PRN (13:55)
--- NOTE | 2021-03-09 14:00 | NUR ---
TRIED TO REACH ELEONORA JOSE LUIS FOR DILAUDID ORDER. ADVISED TO CHANGE Q2 HRS
[2021-03-09 16:00] VITALS: BP 146/84
[2021-03-09] MEDS: INSULIN REGULAR, HUMAN 300 UNIT/3 ML VIAL SQ PRN ×2 (16:23→23:45)
--- NOTE | 2021-03-09 19:30 | NUR ---
Received pt in bed, awake and verbally responsive. On oxygen at 2LPM saturating 97%. No signs of respiratory distress. Complains of pain on mid back. Educated pt on pain administration schedule, pt verbalized understanding. Safety measures initiated, call light within reach.
[2021-03-09 20:18] VITALS: BP 108/51
[2021-03-09] MEDS: MUPIROCIN 2% OINT 22 GM TUBE NS SCH (20:54)
[2021-03-09] MEDS ORDERED: INSULIN GLARGINE,HUM 300 UNITS/3 ML CARTRIDGE SQ ONE (21:07)
[2021-03-10 00:06] VITALS: BP 95/41
[2021-03-10] MEDS: HYDROMORPHONE 2 MG/1 ML DISP.SYRIN IV PRN ×10 (01:56→23:58)
[2021-03-10] MEDS: LORAZEPAM 2 MG/1 ML VIAL IV PRN ×4 (03:23→21:18)
[2021-03-10 04:18] VITALS: BP 104/60
[2021-03-10] MEDS: METRONIDAZOLE 500 MG/NS 100ML 500 MG in PREMIXED 1 EACH IV SCH ×3 (05:54→22:04)
[2021-03-10] MEDS: BLOOD SUGAR DIAGNOSTIC 1 EACH STRIP VI SCH ×4 (06:00→23:55)
--- NOTE | 2021-03-10 06:30 | NUR ---
Pt in bed, slept intermittently, no significant change in condition noted through the night. Pain medications administered as needed, tolerated medications well. All needs attended to and met.
[2021-03-10] MEDS: VALPROATE SODIUM IV 500 MG in IV DEXTROSE 5% 100 ML IV SCH ×3 (06:50→22:51)
--- NOTE | 2021-03-10 07:30 | NUR ---
PATIENT IN BED, NO S/S OF DISTRESS, A/OX4, NSR ON MONITOR, REPORT FROM GUEST HISTORY CLERK AND TOLD BY CHARGE NURSE THAT PATIENT IS IN 10/10 PAIN OFTEN AND THAT PATIENT GETS DILAUDID Q2H PRN FOR PAIN, PATIENT REPORTS HAVING BLACK STOOLS CURRENTLY, MD IS AWARE, MAYRA MIDLINE INTACT PATENT. FULL LIQUID DIET.
--- NOTE | 2021-03-10 08:15 | NUR ---
PATIENT REPORTED 10/10 PAIN IN HIS MID BACK, GAVE PRN DILAUDID, WILL ASSESS FOR EFFECTIVENESS.
[2021-03-10] MEDS: MUPIROCIN 2% OINT 22 GM TUBE NS SCH ×2 (08:27→20:13)
[2021-03-10] MEDS: PANTOPRAZOLE SODIUM 40 MG VIAL IV SCH (08:29)
[2021-03-10] MEDS: NICOTINE 14 MG/24HR PATCH TD SCH (08:29)
[2021-03-10] MEDS: INSULIN GLARGINE,HUM 300 UNITS/3 ML CARTRIDGE SQ SCH ×2 (08:31→20:14)
[2021-03-10 09:45] LABS: HEMATOCRIT 27.1 % (36.7-47.1); MEAN CORPUSCULAR HEMOGLOBIN 29.8 uug (23.8-33.4); PLATELET COUNT (AUTO) 294 K/uL (152-348)
[2021-03-10 10:04] LABS: CREATININE 0.7 mg/dL (0.6-1.3); MAGNESIUM 2.2 mg/dL (1.8-2.4); POTASSIUM 3.8 mmol/L (3.5-5.1)
[2021-03-10] MEDS: LEVETIRACETAM IV SCH ×2 (10:29→20:13)
[2021-03-10] MEDS: NORMAL SALINE IV SCH ×2 (10:29→20:13)
--- NOTE | 2021-03-10 10:30 | NUR ---
PROVIDED PRN ATIVAN TO PATIENT BECAUSE HE REPORTED ANXIETY AND STATED IT HAS BEEN UNRELIEVED WITH ANYTHING OTHER THAN THE ATIVAN. WILL ASSESS EFFECTIVENESS.
[2021-03-10 11:07] VITALS: BP 125/74
[2021-03-10] MEDS: levoFLOXacin 750MG/D5W 750 MG in PREMIXED 1 EACH IV SCH (11:12)
--- NOTE | 2021-03-10 11:15 | NUR ---
PATIENT REPORTED 10/10 PAIN IN BACK, ASSESSED AND PROVIDED PRN DILAUDID, WILL ASSESS EFFECTIVENESS.
[2021-03-10] MEDS: ONDANSETRON 4 MG/2 ML VIAL IV PRN ×2 (12:24→21:18)
--- NOTE | 2021-03-10 12:30 | NUR ---
PATIENT REPORTING NAUSEA THAT IS UNRELENTING, PROVIDED ZOFRAN TO HELP WITH NAUSEA, WILL ASSESS EFFECTIVENESS.
--- NOTE | 2021-03-10 13:30 | NUR ---
PATIENT PROVIDED ANOTHER DOSE OF DILAUDID FOR PAIN REPORTED OF 10/10 ON BACK. TRIED POSITION CHANGES TO ALLEVIATE PAIN SAID IT DID NOT HELP MUCH AND STILL REPORTED 10/10 PAIN. MD AWARE AND DISCUSSED PAIN WITH PATIENT, SAID WE WILL KEEP ON THE SAME PAIN REGIMEN.
--- NOTE | 2021-03-10 13:44 | NUR ---
PATIENT IS REFUSING LIQUID DIET, TOLD HE CAN NOT ORDER FOOD THAT IS NOT IN ACCORDANCE WITH HIS DIET, DISCUSSED WITH PATIENT WITH CHARGE NURSE PRESENT. NOTIFIED MD, AWAITING DECISION IF DR AMAYA WANTS TO CONTINUE LIQUID DIET OR CHANGE TO SOLIDS. WILL FOLLOW UP.
[2021-03-10] MEDS: IV D5/ 0.9% NACL 1,000 ML IV PRN (15:10)
[2021-03-10 15:33] VITALS: BP 134/90
[2021-03-10] MEDS: INSULIN REGULAR, HUMAN 300 UNIT/3 ML VIAL SQ PRN ×2 (18:27→23:57)
--- NOTE | 2021-03-10 19:45 | NUR ---
Received pt in bed, A&Ox3, verbally responsive, able to make needs known. On oxygen at 2LPM, no signs of respiratory distress noted. IVF infusing well. Pt with Beard cath, draining well. Pt on CCHO diet now as ordered. Pt aware. Safety measures initiated, call light within reach.
[2021-03-10 21:08] VITALS: BP 121/84
[2021-03-11 00:18] VITALS: BP 114/57
[2021-03-11] MEDS: HYDROMORPHONE 2 MG/1 ML DISP.SYRIN IV PRN ×7 (01:53→14:16)
[2021-03-11] MEDS: LORAZEPAM 2 MG/1 ML VIAL IV PRN ×2 (03:27→10:49)
[2021-03-11 04:00] VITALS: BP 122/70
[2021-03-11] MEDS: METRONIDAZOLE 500 MG/NS 100ML 500 MG in PREMIXED 1 EACH IV SCH ×2 (05:57→14:00)
[2021-03-11] MEDS: BLOOD SUGAR DIAGNOSTIC 1 EACH STRIP VI SCH ×2 (06:00→11:51)
--- NOTE | 2021-03-11 06:14 | NUR ---
Pt slept intermittently. IV antibiotics and PRN medications administered, tolerated well. No seizure episode through the night. Repositioning done as needed. IVF infusing, Beard draining well. Safety measures maintained at all times. All needs attended to and met.
[2021-03-11] MEDS: VALPROATE SODIUM IV 500 MG in IV DEXTROSE 5% 100 ML IV SCH ×2 (06:37→14:00)
[2021-03-11] MEDS: INSULIN REGULAR, HUMAN 300 UNIT/3 ML VIAL SQ PRN (08:00)
[2021-03-11] MEDS: PANTOPRAZOLE SODIUM 40 MG VIAL IV SCH (08:01)
[2021-03-11] MEDS: NICOTINE 14 MG/24HR PATCH TD SCH (08:05)
[2021-03-11] MEDS: INSULIN GLARGINE,HUM 300 UNITS/3 ML CARTRIDGE SQ SCH (08:07)
[2021-03-11] MEDS: NORMAL SALINE IV SCH (08:13)
[2021-03-11] MEDS: LEVETIRACETAM IV SCH (08:13)
[2021-03-11] MEDS: MUPIROCIN 2% OINT 22 GM TUBE NS SCH (08:19)
[2021-03-11] MEDS: IV D5/ 0.9% NACL 1,000 ML IV PRN (08:19)
[2021-03-11 09:43] LABS: HEMATOCRIT 27.8 % (36.7-47.1); MEAN CORPUSCULAR VOLUME 92.7 fL (73.0-96.2); PLATELET COUNT (AUTO) 289 K/uL (152-348)
[2021-03-11 10:04] LABS: CREATININE 0.7 mg/dL (0.6-1.3); PHOSPHOROUS 3.1 mg/dL (2.5-4.9); POTASSIUM 4.2 mmol/L (3.5-5.1)
[2021-03-11 11:36] VITALS: BP 133/85
--- NOTE | 2021-03-11 12:00 | NUR ---
BS 115. No insulin to be given per sliding scale. Patient is eating lunch and drinking fluids, tolerating well.
[2021-03-11] MEDS: levoFLOXacin 750MG/D5W 750 MG in PREMIXED 1 EACH IV SCH ×2 (12:55→13:01)
--- NOTE | 2021-03-11 15:36 | NUR ---
Patient is alert and oriented x4. Patient is needy, demanding, manipulative, and aggressive with staff. Patient complains of constant pain 9/10 in right hip and thigh that is chronic, constantly demands PRN IV Dilaudid and demands for this financial underwriter to give it to him before the 2 hour period. Patient states "they've been doing it, you can do it too." Patient's mindline is intact and patent, infusing IV fluids. Patient received IV ATB therapy, tolerated well. patient is tolerating food and fluids. Reports 2 BMs this AM, 1 was black but the other was brown. Patient denies abdominal pain or discomfort, denies nausea or vomiting. patient is on tele monitor, SR. Patient is receiving oxygen via NC at 2L/min, tolerating well and oxygen saturation 98%. Patient is able to ambulate independently in wheel chair. Able to transfer self. Patient is able to independently provide for self care and ADL's.
--- NOTE | 2021-03-11 15:44 | NUR ---
DISCHARGE NOTE: Patient is being discharged to [facility]. Patient's belongings and valuables inventoried with patient and returned to patient. Patient provided with education about discharge medications, instructions for follow up care, and information about diagnoses. He is able to verbalize understanding. Patient to be discharged via taxi. When patient was instructed that the taxi will take approximately 25 minutes to arrive, he became angry and demanded that staff give him the taxi voucher so he can wait in the hospital lobby by himself. Patient was instructed that due to safety reasons, staff cannot allow that. Patient became angry and cursed at this sign writer hand, he said "then I'm leaving" and wheelchaired himself to the main lobby. After 20 minutes, staff was informed that the driver's license examiner left without the patient. Patient came back to the unit cursing at staff, saying "I'm being treated like a dog", and became very angry. Patient was provided with reality orientation and education about impulse control. [employer] company called to reorder a taxi. Security notified and escorted patient to the hospital lobby. Per community relations rep, patient OK to wait downstairs. Patient left lobby via taxi to [facility].
[2021-03-12] MEDS ORDERED: PANTOPRAZOLE SODIUM 40 MG TABLET.DR PO SCH (07:00)
== END 2021-03-11 14:15 | DRG 871 ==
LOC: ER 11:37 → TRANSITION 17:44 → MEDSURG3 03-08 18:02 → TELE3 03-08 18:55
PROVIDERS: ADMIT Internal Medicine; ATTEND Nurse Practitioner Acute Care
PROC: 05H533Z Insertion of Infusion Device into Right Subclavian Vein, Percutaneous Approach (ICD-10-PCS; principal; 2021-03-07)
PROC: B546ZZA Ultrasonography of Right Subclavian Vein, Guidance (ICD-10-PCS; 2021-03-07)
PROC: 05H533Z Insertion of Infusion Device into Right Subclavian Vein, Percutaneous Approach (ICD-10-PCS; 2021-03-09)
PROC: B546ZZA Ultrasonography of Right Subclavian Vein, Guidance (ICD-10-PCS; 2021-03-09)
DX: A41.9 Sepsis, unspecified organism (principal); K25.0 Acute gastric ulcer with hemorrhage; Z68.41 Body mass index [BMI] 40.0-44.9, adult; D68.59 Other primary thrombophilia; E87.1 Hypo-osmolality and hyponatremia; E44.1 Mild protein-calorie malnutrition; I50.32 Chronic diastolic (congestive) heart failure; F11.20 Opioid dependence, uncomplicated; D62 Acute posthemorrhagic anemia; G40.909 Epilepsy, unspecified, not intractable, without status epilepticus; E11.65 Type 2 diabetes mellitus with hyperglycemia; Z79.4 Long term (current) use of insulin; Z88.6 Allergy status to analgesic agent; Z91.010 Allergy to peanuts; Z91.013 Allergy to seafood; Z95.5 Presence of coronary angioplasty implant and graft; E66.01 Morbid (severe) obesity due to excess calories; E78.5 Hyperlipidemia, unspecified; F32.9 Major depressive disorder, single episode, unspecified; F90.9 Attention-deficit hyperactivity disorder, unspecified type; I25.10 Atherosclerotic heart disease of native coronary artery without angina pectoris; Z20.822 Contact with and (suspected) exposure to COVID-19; Z79.51 Long term (current) use of inhaled steroids; G89.4 Chronic pain syndrome; I11.0 Hypertensive heart disease with heart failure; F17.210 Nicotine dependence, cigarettes, uncomplicated; Z79.82 Long term (current) use of aspirin; F43.10 Post-traumatic stress disorder, unspecified; J44.9 Chronic obstructive pulmonary disease, unspecified; N40.0 Benign prostatic hyperplasia without lower urinary tract symptoms; Z91.19 Patient's noncompliance with other medical treatment and regimen; Z87.440 Personal history of urinary (tract) infections; Z99.3 Dependence on wheelchair
CPT/HCPCS: 36415; 70030-TC; 71045; 80164; 82378; 83550; 83605; 83690; 83735; 84100; 84443; 85025; 85730; 87040; 97161; A4663; C9113; G0378; J1170; J1815; J1953; J1956; J2060; J2405; J3490; J7030; J7042; J7060

== ENCOUNTER 2021-03-19 19:52 | Inpatient (IN) | payer MEDICARE, OTHER ==
[~2021-03-19] VITALS: Ht 177.8 cm; Wt 125.2 kg
[~2021-03-19 19:52] MED LIST changes: +ALBU8.5H8 IH; -DIPH25CA83 PO; +INSU100V7 SQ; +IPRA12.9 IH; -IPRA3AMP23 IH; -Insulin Glargine,Hum SQ; +MORP10SY4 PO; +MORP60CA19 PO; -NITR100C11 PO; +QUET25TA PO; -RXVAN XX
[2021-03-19 20:28] LABS: MEAN CORPUSCULAR HEMOGLOBIN 29.2 uug (23.8-33.4); PLATELET COUNT (AUTO) 509 K/uL (152-348)
[2021-03-19] MEDS ORDERED: IV NORMAL SALINE 1000 ML BAG IV ONE (20:30)
[2021-03-19] MEDS ORDERED: PROCHLORPERAZINE EDISYLATE 10 MG/2 ML VIAL ONE (20:30)
[2021-03-19] MEDS ORDERED: PROCHLORPERAZINE EDISYLATE 10 MG/2 ML VIAL IV ONE (20:30)
[2021-03-19] MEDS ORDERED: HYDROMORPHONE 1 MG/1 ML DISP.SYRIN IV ONE ×2 (20:30→23:00)
[2021-03-19] MEDS ORDERED: PANTOPRAZOLE SODIUM IV 80 MG in IV DEXTROSE 5% 100 ML IV ONE (20:30)
[2021-03-19] MEDS ORDERED: HYDROMORPHONE 2 MG/1 ML DISP.SYRIN ONE ×2 (20:31→23:12)
[2021-03-19] MEDS ORDERED: PANTOPRAZOLE SODIUM 40 MG VIAL ONE (20:31)
[2021-03-19 20:38] LABS: CREATININE 0.7 mg/dL (0.6-1.3); POTASSIUM 4.6 mmol/L (3.5-5.1)
[2021-03-19 20:43] LABS: BILIRUBIN,DIRECT 0.1 mg/dL (0.0-0.2); BILIRUBIN,TOTAL 0.4 mg/dL (0.2-1.0); TOTAL PROTEIN, SERUM 7.5 g/dL (6.4-8.2)
[2021-03-19] MEDS ORDERED: FLUT1BLS IH (20:51)
--- NOTE | 2021-03-19 22:10 | NUR ---
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 WAITING FOR DR CAMARA TO CALL BACK.
[2021-03-19 22:39] LABS: *BILIRUBIN,URIN 1+ (NEGATIVE); *COLOR,URINE YELLOW (YELLOW); *KETONES,URINE NEGATIVE (NEGATIVE); LEUKOCYTE ESTERASE ,URINE NEGATIVE (NEGATIVE); NITRITE, URINE NEGATIVE (NEGATIVE); UGLUCOSE NEGATIVE (NEGATIVE)
--- NOTE | 2021-03-19 22:50 | NUR ---
Patient in room laying down on gurny asking multiple staff member for pain meds. No distress noted.
[2021-03-19 22:59] LABS: *BLOOD, URINE TRACE (NEGATIVE)
[2021-03-19 23:00] LABS: *CLARITY,URINE HAZY (CLEAR)
[2021-03-19] MEDS ORDERED: ACETAMINOPHEN 325 MG TABLET PO PRN (23:00)
[2021-03-19] MEDS ORDERED: IV NS 1000 ML 1,000 ML IV PRN (23:00)
[2021-03-19] MEDS ORDERED: MAGNESIUM HYDROXIDE 30 ML LIQUID UDC PO PRN (23:00)
[2021-03-19] MEDS ORDERED: Z GUARD REMEDY PASTE 57 GM TUBE TOP PRN (23:00)
[2021-03-19 23:02] LABS: BACTERIA,URINE MODERATE /HPF (NONE SEEN); SQUAMOUS EPITHELIAL CELL,UR FEW /HPF (NONE SEEN)
--- NOTE | 2021-03-19 23:10 | NUR ---
DR BURTON SPOKE TO DR CAMARA WHO ACCEPTED PATIENT TO TELE FLOOR.
[2021-03-19] MEDS ORDERED: INSULIN REGULAR, HUMAN 300 UNIT/3 ML VIAL SQ PRN (23:15)
[2021-03-19] MEDS ORDERED: DEXTROSE 50% 50 ML DISP.SYRIN IV PRN ×2 (23:15)
[2021-03-19] MEDS ORDERED: INSULIN REGULAR, HUMAN 300 UNITS/3 ML VIAL SQ PRN (23:15)
[2021-03-19] MEDS ORDERED: DIATR MEGLU/DIATRIZOATE SODIUM 30 ML BOTTLE ONE (23:24)
--- NOTE | 2021-03-20 01:12 | NUR ---
Transfered to 3rd floor Tele via wheelchair with no distress noted.
[2021-03-20] MEDS ORDERED: ONDANSETRON HCL 4 MG TABLET PO PRN (01:30)
[2021-03-20] MEDS ORDERED: IPRATROPIUM BROMIDE 0.5 MG/2.5 ML NEBU NEB PRN (01:30)
[2021-03-20] MEDS ORDERED: ALBUTEROL SULFATE 2.5 MG/3 ML NEBU NEB PRN (01:30)
[2021-03-20] MEDS: IV NS 1000 ML 1,000 ML IV SCH ×3 (01:35→21:13)
[2021-03-20] MEDS: MELATONIN 3 MG TABLET PO PRN (01:37)
[2021-03-20 01:42] VITALS: BP 115/71
[2021-03-20] MEDS: MORPHINE SULFATE 2 MG/1 ML DISP.SYRIN IV PRN ×2 (02:09→06:09)
--- NOTE | 2021-03-20 02:14 | NUR ---
Patient brought to tele unit via wheelchair by Er nurse.NSR on Tele .Patient alert x4. O2 at 2LPM via NC.No s/s of distress noted.C/o abd'l pain .Medicated with Morphine with good effect. IV on right UA 20 g patent and intact.Started IVF .Tolerated well.F/c in place draining well.Call light with in reach.
[2021-03-20] MEDS: PANTOPRAZOLE SODIUM 40 MG TABLET.DR PO SCH (06:09)
[2021-03-20] MEDS: BLOOD SUGAR DIAGNOSTIC 1 EACH STRIP VI SCH ×3 (06:34→17:52)
--- NOTE | 2021-03-20 08:00 | NUR ---
RESTING IN BED WITH EYE CLOSED NO SS OF DISTRESS SR ON MONITOR. CONTINUE NPO ORDERED. NO VOMITING BUT NAUSEA FEELING
[2021-03-20] MEDS ORDERED: FLUTICASONE/VILANTEROL 1 EACH BLST.W.DEV IH SCH (09:00)
[2021-03-20] MEDS: ONDANSETRON 4 MG/2 ML VIAL IV PRN ×3 (09:07→21:25)
[2021-03-20] MEDS: LORAZEPAM 0.5 MG TABLET PO PRN ×2 (09:09→17:59)
[2021-03-20] MEDS: GABAPENTIN 300 MG CAPSULE PO SCH ×3 (09:21→17:51)
[2021-03-20] MEDS: LISINOPRIL 10 MG TABLET PO SCH (09:21)
[2021-03-20] MEDS: ESCITALOPRAM OXALATE 10 MG TABLET PO SCH (09:21)
[2021-03-20] MEDS: MULTIVITAMINS,THERAPEUTIC TABLET PO SCH (09:22)
[2021-03-20] MEDS: DIVALPROEX 500 MG TABLET.DR PO SCH ×3 (09:22→17:52)
[2021-03-20] MEDS: ZINC SULFATE 220 MG CAPSULE PO SCH (09:22)
[2021-03-20] MEDS: levETIRAcetam 500 MG TABLET PO SCH ×2 (09:22→17:52)
[2021-03-20] MEDS: FLUTICASONE/VILANTEROL 1 EACH BLST.W.DEV IH SCH (09:23)
[2021-03-20] MEDS: INSULIN GLARGINE,HUM 300 UNITS/3 ML CARTRIDGE SQ SCH ×2 (09:38→21:11)
[2021-03-20] MEDS: HYDROMORPHONE 2 MG/1 ML DISP.SYRIN IV PRN ×5 (09:54→23:59)
[2021-03-20 10:39] LABS: HEMATOCRIT 30.9 % (36.7-47.1); MEAN CORPUSCULAR HEMOGLOBIN 29.6 uug (23.8-33.4); MEAN CORPUSCULAR VOLUME 90.2 fL (73.0-96.2); PLATELET COUNT (AUTO) 395 K/uL (152-348)
[2021-03-20 10:41] LABS: CARBON DIOXIDE 26 mmol/L (21-32); CHLORIDE 101 mmol/L (98-107); CHOLESTEROL 203 mg/dL (<200); CREATININE 0.6 mg/dL (0.6-1.3); GLUCOSE 191 mg/dL (74-106); HDL CHOLESTEROL 31 mg/dL (40-60); PHOSPHOROUS 4.5 mg/dL (2.5-4.9); POTASSIUM 3.9 mmol/L (3.5-5.1); TRIGLYCERIDES 156 MG/DL (30-150); UREA NITROGEN, BLOOD 10 mg/dL (7-18)
--- NOTE | 2021-03-20 12:00 | NUR ---
SEEN BY HOSPITALIST REVIEWED MEDS DCD MORPHINE AND WILL START ON DILAUDID
--- NOTE | 2021-03-20 15:48 | NUR ---
CONTINUE WITH PAIN MANAGEMENT, REMAINS NPO FOR NOW TILL FURTHER ORDERS. NS IV 1OO MLS/HR. STILL AWAITING FOR GI CONSULT
[2021-03-20] MEDS ORDERED: DEXTROSE 50% 50 ML DISP.SYRIN IV PRN (17:45)
[2021-03-20] MEDS: INSULIN REGULAR, HUMAN 300 UNIT/3 ML VIAL SQ PRN ×2 (17:54→21:12)
[2021-03-20] MEDS: QUETIAPINE FUMARATE 25 MG TABLET PO SCH (20:57)
[2021-03-20 22:10] VITALS: BP 116/62
[2021-03-21] MEDS: BLOOD SUGAR DIAGNOSTIC 1 EACH STRIP VI SCH ×4 (00:07→17:58)
[2021-03-21] MEDS: INSULIN REGULAR, HUMAN 300 UNIT/3 ML VIAL SQ PRN ×2 (00:08→12:11)
[2021-03-21] MEDS: ONDANSETRON 4 MG/2 ML VIAL IV PRN ×3 (04:38→16:39)
[2021-03-21] MEDS: HYDROMORPHONE 2 MG/1 ML DISP.SYRIN IV PRN ×8 (04:38→23:50)
--- NOTE | 2021-03-21 05:05 | NUR ---
Pt slept intermittently throughout the night. Exhibits very manipulative behavior and gets angry when pain medication is not given before it is due. Patient educated that there is a specific time frame in which his medications are scheduled, but still demands to get his pain meds when he asks for them. This nurse was able to calm patient successfully. Diet changed to clear liquids, tolerating well. Safety and comfort provided. IV site intact. No other issues or concerns at this time, will endorse to day shift.
[2021-03-21] MEDS: PANTOPRAZOLE SODIUM 40 MG TABLET.DR PO SCH (06:22)
[2021-03-21] MEDS: IV NS 1000 ML 1,000 ML IV SCH ×3 (06:22→19:00)
[2021-03-21 06:44] LABS: HEMATOCRIT 31.1 % (36.7-47.1); MEAN CORPUSCULAR HEMOGLOBIN 29.1 uug (23.8-33.4); MEAN CORPUSCULAR VOLUME 89.3 fL (73.0-96.2); PLATELET COUNT (AUTO) 413 K/uL (152-348)
[2021-03-21 07:05] LABS: ALANINE AMINOTRANSFERASE 38 U/L (16-63); ALKALINE PHOSPHATASE 126 U/L (50-136); ASPARTATE AMINOTRANSFERASE 19 U/L (15-37); BILIRUBIN,TOTAL 0.3 mg/dL (0.2-1.0); CARBON DIOXIDE 26 mmol/L (21-32); CHLORIDE 105 mmol/L (98-107); CREATININE 0.6 mg/dL (0.6-1.3); GLUCOSE 117 mg/dL (74-106); MAGNESIUM 2.2 mg/dL (1.8-2.4); PHOSPHOROUS 4.7 mg/dL (2.5-4.9); POTASSIUM 4.3 mmol/L (3.5-5.1); TOTAL PROTEIN, SERUM 6.1 g/dL (6.4-8.2); UREA NITROGEN, BLOOD 6 mg/dL (7-18)
--- NOTE | 2021-03-21 09:15 | NUR ---
Patient received mid-shift because patient complained and request to change his AM nurse. Patient exhibits manipulative behavior and states that his pain medication wasn't given "correctly." Willie contacted and he states no more changes in pain medication at this time and that patient needs to wait for pain management consult. Once patient informed, he states he wants to leave AMA. Educated patient on AMA and began process for AMA. However, patient states he does not want to sign papers and that he will keep his midline because he "came to the hospital with it." Informed patient that we cannot allow him to leave with it, but he still refuses. All supervisors at meeting at this time. Will continue to monitor.
[2021-03-21] MEDS: LORAZEPAM 0.5 MG TABLET PO PRN ×2 (09:30→20:00)
--- NOTE | 2021-03-21 09:50 | NUR ---
Patient states he will no longer leaving because it is time for his pain medicine. Informed patient that it is not time for his medications and patient tried to state that the previous nurse informed him that he could have his pain medicine at 10:00 AM. Informed him that that is not true and that his last dose was given at 7:51 AM. Patient started to yell profanities. He does not want to leave the hospital at this time and he refuses all other medications at this time.
[2021-03-21] MEDS: FLUTICASONE/VILANTEROL 1 EACH BLST.W.DEV IH SCH (10:56)
[2021-03-21] MEDS: GABAPENTIN 300 MG CAPSULE PO SCH ×2 (10:56→13:49)
[2021-03-21] MEDS: levETIRAcetam 500 MG TABLET PO SCH ×2 (10:57→16:50)
[2021-03-21] MEDS: ZINC SULFATE 220 MG CAPSULE PO SCH (10:57)
[2021-03-21] MEDS: DIVALPROEX 500 MG TABLET.DR PO SCH ×3 (10:57→16:50)
[2021-03-21] MEDS: MULTIVITAMINS,THERAPEUTIC TABLET PO SCH (10:57)
[2021-03-21] MEDS: ESCITALOPRAM OXALATE 10 MG TABLET PO SCH (10:57)
[2021-03-21] MEDS: LISINOPRIL 10 MG TABLET PO SCH (10:58)
--- NOTE | 2021-03-21 11:00 | NUR ---
Patient states he wants to take his morning medications now that his pain medication has been administered. Morning medications administered as ordered. Patient c/o nausea and zofran administered as ordered.
[2021-03-21] MEDS: INSULIN GLARGINE,HUM 300 UNITS/3 ML CARTRIDGE SQ SCH ×2 (11:01→21:59)
[2021-03-21 11:50] VITALS: BP 127/61
--- NOTE | 2021-03-21 14:00 | NUR ---
Dr. Tapia at bedside. Patient c/o hospital staff being inattentive to his pain needs. Dr. Tapia explained to patient that he needs to be seen by Dr. Marie, pain management. As per Dr. Tapia, Dr. Marie will be here today, sometime in the afternoon. Patient's family member also called Dr. Marie to confirm. New order for Dilaudid Q2H (changed from Q3H) and and patient expressed understanding. Call light within easy reach. Will continue to monitor.
[2021-03-21 16:00] VITALS: BP 103/52
[2021-03-21] MEDS ORDERED: MORPHINE SULFATE IR 30 MG TABLET PO PRN (16:00)
[2021-03-21] MEDS ORDERED: HYDROMORPHONE 2 MG/1 ML DISP.SYRIN IV PRN ×2 (16:00→16:15)
--- NOTE | 2021-03-21 16:10 | NUR ---
DR. ISAACS AT PATIENT BEDSIDE. PATIENT REQUESTED THAT I LEAVE THE ROOM AND I COMPLIED. NEW ORDERS FOR OXYCONTIN 30MG Q12H AND INCREASE IN DOSAGE FOR SCHEDULED GABAPENTIN NOTED AT THIS TIME. PER DR. ISAACS, KEEPING DILAUDID 2MG Q2H. NARCAN PRN ALSO NOTED AT THIS TIME. WILL CONTINUE TO MONITOR PATIENT.
[2021-03-21] MEDS ORDERED: NALOXONE HCL 0.4 MG/ML AMPUL IV PRN (16:30)
[2021-03-21] MEDS: OXYCODONE HCL 10 MG TAB.SR.12H PO SCH (16:49)
[2021-03-21] MEDS: GABAPENTIN 400 MG CAPSULE PO SCH (16:50)
[2021-03-21] MEDS ORDERED: GABAPENTIN 300 MG CAPSULE PO SCH (17:00)
--- NOTE | 2021-03-21 17:48 | NUR ---
Patient still complaining of pain and requests dilaudid. Dilaudid administered as ordered. Patient is alert and oriented x4, no respiratory depression noted at this time. Continues on 2L O2 via NC with no SOB or difficulties breathing. Reminded patient that we need a stool sample and he expressed understanding. Call light and personal belongings within easy reach. Will continue to monitor.
--- NOTE | 2021-03-21 19:30 | NUR ---
PATIENT ALERT ORIENTED, CONT ON PAIN MANAGEMENT DUE ABDOMINAL PAIN. PATIENT ASKING FOR DILAUDID EARLIER THAN DUE TIME, EXPLAIN TO PATIENT THAT WE CANNOT GIVE HIS PAIN MEDS BEFORE EARLIER THAN HE WISHES, ENCOURAGE TO RELAX, OFFERED FOOD AND ENCOURAGE TO WATCH TV FOR DISTRACTIONS. WILL MEDICATE ORDERED.
[2021-03-21] MEDS: QUETIAPINE FUMARATE 25 MG TABLET PO SCH (20:00)
[2021-03-21 20:05] VITALS: BP 114/69
[2021-03-21] MEDS: MELATONIN 3 MG TABLET PO PRN (21:49)
[2021-03-22] MEDS: BLOOD SUGAR DIAGNOSTIC 1 EACH STRIP VI SCH ×4 (01:00→17:17)
--- NOTE | 2021-03-22 01:00 | NUR ---
PATIENT AWAKE REFUSED TO HAVE BLOOD SUGAR CHECK NOW, STATED I JUST ATE. PATIENT ATE 3 SANDWICHES, 2 YELLOW, CONT ON PAIN MANAGEMENT, CONT TO MONITOR.
[2021-03-22 04:05] VITALS: BP 108/61
[2021-03-22] MEDS: HYDROMORPHONE 2 MG/1 ML DISP.SYRIN IV PRN ×11 (04:25→23:58)
[2021-03-22] MEDS: PANTOPRAZOLE SODIUM 40 MG TABLET.DR PO SCH ×2 (06:17→16:57)
[2021-03-22] MEDS: ONDANSETRON 4 MG/2 ML VIAL IV PRN ×2 (06:30→22:04)
[2021-03-22 06:52] LABS: HEMATOCRIT 28.7 % (36.7-47.1); MEAN CORPUSCULAR HEMOGLOBIN 29.5 uug (23.8-33.4); MEAN CORPUSCULAR VOLUME 90.2 fL (73.0-96.2); PLATELET COUNT (AUTO) 373 K/uL (152-348)
--- NOTE | 2021-03-22 06:53 | NUR ---
PATIENT ALERT ORIENTED, NO SOB NO CHEST PAIN, CONT PAIN MANAGEMENT DUE TO ABDOMINAL PAIN, COMPLAIN OF NAUSEA AND REQUESTED ZOFRAN , GIVEN ORDERED. PATIENT HAS SMALL TINY BLOOD STAIN FROM PENILE AREA, BUT NO FURTHER BLEEDING NOTED. ENDORSE TO NEXT SHIFT TO NOTIFY MD DURING ROUNDS. PATIENT MANIPULATIVE, AND DEMANDING, WANTING HIS DILAUDID EVEN IF NOT DUE ON THE NEXT DOSE, DOESN'T WAIT FOR ONE MINUTES,CONSTANTLY USING THE CALL LIGHTS.
[2021-03-22 07:12] LABS: CARBON DIOXIDE 26 mmol/L (21-32); CHLORIDE 107 mmol/L (98-107); CREATININE 0.6 mg/dL (0.6-1.3); GLUCOSE 131 mg/dL (74-106); MAGNESIUM 2.3 mg/dL (1.8-2.4); PHOSPHOROUS 5.1 mg/dL (2.5-4.9); POTASSIUM 3.7 mmol/L (3.5-5.1); UREA NITROGEN, BLOOD 7 mg/dL (7-18)
--- NOTE | 2021-03-22 07:15 | NUR ---
RECEIVED PATIENT IN BED AWAKE, HOB ELEVATED, PATIENT ALERT AND ORIENTED. ON CONT PAIN MANAGEMENT. NO SOB NOTED AT THIS TIME, PATIENT ON 2L NASAL CANULA. CALL LIGHT WITHIN REACH. SAFETY PRECAUTIONS IN PLACE. WILL CONTINUE TO MONITOR.
[2021-03-22] MEDS: OXYCODONE HCL 10 MG TAB.SR.12H PO SCH ×2 (08:05→20:01)
[2021-03-22] MEDS: FLUTICASONE/VILANTEROL 1 EACH BLST.W.DEV IH SCH (08:16)
[2021-03-22] MEDS: DIVALPROEX 500 MG TABLET.DR PO SCH ×3 (08:18→16:57)
[2021-03-22] MEDS: ZINC SULFATE 220 MG CAPSULE PO SCH (08:18)
[2021-03-22] MEDS: GABAPENTIN 400 MG CAPSULE PO SCH ×3 (08:19→16:57)
[2021-03-22] MEDS: ESCITALOPRAM OXALATE 10 MG TABLET PO SCH (08:19)
[2021-03-22] MEDS: MULTIVITAMINS,THERAPEUTIC TABLET PO SCH (08:19)
[2021-03-22] MEDS: levETIRAcetam 500 MG TABLET PO SCH ×2 (08:19→16:57)
[2021-03-22] MEDS: LISINOPRIL 10 MG TABLET PO SCH (08:27)
[2021-03-22] MEDS: INSULIN GLARGINE,HUM 300 UNITS/3 ML CARTRIDGE SQ SCH ×2 (08:32→20:13)
[2021-03-22] MEDS: LORAZEPAM 0.5 MG TABLET PO PRN ×2 (08:33→14:30)
[2021-03-22] MEDS: IV NS 1000 ML 1,000 ML IV SCH ×2 (10:40→17:54)
[2021-03-22 11:11] VITALS: BP 108/67
--- NOTE | 2021-03-22 12:50 | NUR ---
NEW ORDERS FROM DR. JUILANNE YUN FOR PROTONIX BID. EGD TOMORROW WITH BATCH FREEZER OPERATOR AT 1230. ORDERS CARRIED OUT AND CONSENT SIGNED.
[2021-03-22 15:08] VITALS: BP 102/62
[2021-03-22] MEDS: NICOTINE 7 MG/24HR PATCH TD SCH ×2 (17:00→17:08)
--- NOTE | 2021-03-22 17:08 | NUR ---
patient was prescribed nicotine patch 7mg as requested by doctor, when patch was going to be administered patient refused and verbalizes to be given a bigger dose due to him smoking 3 packs a day and that amount was not going to prevent him from smoking. spoke to doctor and received new order.
[2021-03-22] MEDS: NICOTINE 21 MG/24HR PATCH TD SCH (17:20)
--- NOTE | 2021-03-22 18:24 | NUR ---
PATIENT IN BED AWAKE AND ALERT. CONT WITH PAIN MANAGEMENT. NO SOB NOTED AT THIS TIME ON 2L NC, PATIENT MANIPULATIVE, AND DEMANDING, WANTING HIS DILAUDID EVEN IF NOT DUE ON THE NEXT DOSE, DOESN'T WAIT FOR ONE MINUTES,CONSTANTLY USING THE CALL LIGHTS. IV PATENT AND INTACT. CORNEJO DRAINING WELL. WILL REPORT TO ONCOMING SHIFT.
--- NOTE | 2021-03-22 18:52 | NUR ---
PATIENT LEFT ROOM WALKING TOWARDS LOBBY ADVISED PATIENT TO PLEASE RETURN TO ROOM AND STARTED GETTING ROOM AND THREATENING, CHARGE NURSE MADE AWARE AND SECURITY CALLED.
[2021-03-22] MEDS: QUETIAPINE FUMARATE 25 MG TABLET PO SCH (20:01)
[2021-03-22 20:15] VITALS: BP 115/73
[2021-03-22] MEDS: MELATONIN 3 MG TABLET PO PRN (22:45)
[2021-03-23] MEDS: BLOOD SUGAR DIAGNOSTIC 1 EACH STRIP VI SCH ×4 (00:05→17:37)
[2021-03-23] MEDS: INSULIN REGULAR, HUMAN 300 UNIT/3 ML VIAL SQ PRN ×2 (00:06→17:39)
[2021-03-23] MEDS ORDERED: LORAZEPAM 2 MG/1 ML VIAL IV ONE (00:45)
[2021-03-23] MEDS: HYDROMORPHONE 2 MG/1 ML DISP.SYRIN IV PRN ×9 (02:00→17:52)
[2021-03-23] MEDS: ONDANSETRON 4 MG/2 ML VIAL IV PRN ×2 (04:00→08:58)
[2021-03-23] MEDS: LORAZEPAM 0.5 MG TABLET PO PRN ×2 (04:18→10:18)
[2021-03-23 04:20] VITALS: BP 116/50
[2021-03-23] MEDS: IV NS 1000 ML 1,000 ML IV SCH ×2 (04:50→16:29)
--- NOTE | 2021-03-23 05:40 | NUR ---
Pt awake most of the night. Asking for pain meds before they are due and exhibiting manipulative behavior. Educated on when his medication would be due. IV site intact. PT NPO after midnight for EGD today. No other issues or concerns at this time. Will endorse to day shift.
[2021-03-23] MEDS: PANTOPRAZOLE SODIUM 40 MG TABLET.DR PO SCH ×2 (06:05→16:29)
--- NOTE | 2021-03-23 07:15 | NUR ---
patient in bed awake, in stable condition. no SOB noted on 2L nasal canula. on cont pain management will. call light within reach. will continue to monitor.
[2021-03-23] MEDS: DIVALPROEX 500 MG TABLET.DR PO SCH ×3 (08:48→16:29)
[2021-03-23] MEDS: ESCITALOPRAM OXALATE 10 MG TABLET PO SCH (08:48)
[2021-03-23] MEDS: GABAPENTIN 400 MG CAPSULE PO SCH ×3 (08:48→16:28)
[2021-03-23] MEDS: levETIRAcetam 500 MG TABLET PO SCH ×2 (08:48→16:29)
[2021-03-23] MEDS: NICOTINE 21 MG/24HR PATCH TD SCH (08:48)
[2021-03-23] MEDS: FLUTICASONE/VILANTEROL 1 EACH BLST.W.DEV IH SCH (08:48)
[2021-03-23] MEDS: OXYCODONE HCL 10 MG TAB.SR.12H PO SCH (08:50)
[2021-03-23] MEDS: INSULIN GLARGINE,HUM 300 UNITS/3 ML CARTRIDGE SQ SCH (09:00)
[2021-03-23] MEDS: MULTIVITAMINS,THERAPEUTIC TABLET PO SCH (09:00)
[2021-03-23] MEDS: ZINC SULFATE 220 MG CAPSULE PO SCH (09:00)
[2021-03-23] MEDS: LISINOPRIL 10 MG TABLET PO SCH (09:00)
[2021-03-23 10:48] LABS: HEMATOCRIT 30.3 % (36.7-47.1); MEAN CORPUSCULAR HEMOGLOBIN 29.5 uug (23.8-33.4); MEAN CORPUSCULAR VOLUME 92.1 fL (73.0-96.2); PLATELET COUNT (AUTO) 383 K/uL (152-348)
[2021-03-23 10:57] LABS: CARBON DIOXIDE 25 mmol/L (21-32); CHLORIDE 104 mmol/L (98-107); CREATININE 0.6 mg/dL (0.6-1.3); GLUCOSE 85 mg/dL (74-106); POTASSIUM 3.7 mmol/L (3.5-5.1); UREA NITROGEN, BLOOD 4 mg/dL (7-18)
[2021-03-23 10:57] LABS: *OCCULT BLOOD STOOL NEGATIVE (NEGATIVE)
[2021-03-23 12:00] VITALS: BP 108/70
[2021-03-23] MEDS ORDERED: MIDAZOLAM HCL 2 MG/2 ML VIAL ONE (13:03)
[2021-03-23 16:00] VITALS: BP 112/69
--- NOTE | 2021-03-23 18:40 | NUR ---
PATIENT LEFT IN STABLE CONDITION VIA LYFT RIDE. REPORT GIV[facility] TO ESTELITA AT [facility].
[2021-03-23] MEDS ORDERED: LIDOCAINE-MPF 2% 5 ML VIAL MC ONE (18:48)
[2021-03-23] MEDS ORDERED: PROPOFOL 200 MG/20 ML BOTTLE IV ONE (18:48)
== END 2021-03-23 18:49 | DRG 381 ==
LOC: ER 19:54 → TELE3 23:59 → MEDSURG3 03-21 11:14
PROVIDERS: ADMIT Hospitalist; ATTEND Hospitalist
PROC: 05H533Z Insertion of Infusion Device into Right Subclavian Vein, Percutaneous Approach (ICD-10-PCS; 2021-03-20)
PROC: B546ZZA Ultrasonography of Right Subclavian Vein, Guidance (ICD-10-PCS; 2021-03-20)
PROC: 0DB68ZX Excision of Stomach, Via Natural or Artificial Opening Endoscopic, Diagnostic (ICD-10-PCS; principal; 2021-03-23)
DX: K22.11 Ulcer of esophagus with bleeding (principal); E87.2 Acidosis; E44.1 Mild protein-calorie malnutrition; D68.59 Other primary thrombophilia; N20.2 Calculus of kidney with calculus of ureter; D62 Acute posthemorrhagic anemia; J44.9 Chronic obstructive pulmonary disease, unspecified; K29.71 Gastritis, unspecified, with bleeding; D72.829 Elevated white blood cell count, unspecified; E11.65 Type 2 diabetes mellitus with hyperglycemia; E66.01 Morbid (severe) obesity due to excess calories; E78.5 Hyperlipidemia, unspecified; F90.9 Attention-deficit hyperactivity disorder, unspecified type; F17.210 Nicotine dependence, cigarettes, uncomplicated; G40.909 Epilepsy, unspecified, not intractable, without status epilepticus; Z20.822 Contact with and (suspected) exposure to COVID-19; F32.9 Major depressive disorder, single episode, unspecified; K21.9 Gastro-esophageal reflux disease without esophagitis; N40.1 Benign prostatic hyperplasia with lower urinary tract symptoms; R33.8 Other retention of urine; Z79.82 Long term (current) use of aspirin; Z91.19 Patient's noncompliance with other medical treatment and regimen; Z95.5 Presence of coronary angioplasty implant and graft; I50.9 Heart failure, unspecified; E88.09 Other disorders of plasma-protein metabolism, not elsewhere classified; F41.9 Anxiety disorder, unspecified; R16.2 Hepatomegaly with splenomegaly, not elsewhere classified; D47.3 Essential (hemorrhagic) thrombocythemia; Z79.4 Long term (current) use of insulin; Z85.830 Personal history of malignant neoplasm of bone; G89.3 Neoplasm related pain (acute) (chronic); R20.8 Other disturbances of skin sensation; K44.9 Diaphragmatic hernia without obstruction or gangrene; G47.33 Obstructive sleep apnea (adult) (pediatric); Z68.39 Body mass index [BMI] 39.0-39.9, adult; Z79.891 Long term (current) use of opiate analgesic
CPT/HCPCS: 36415; 71045; 83605; 83735; 84100; 85025; 85730; 86850; 86900; 86901; 87086; A4217; A4663; A9150; C9113; G0378; J0780; J1170; J1815; J2060; J2250; J2270; J2405; J3490; J7030; J7060; Q0162; Q9963

== ENCOUNTER 2021-04-22 23:46 | Emergency (ER) | payer MEDICARE, OTHER ==
[~2021-04-22] VITALS: Ht 180.3 cm; Wt 142.9 kg
[~2021-04-22 23:46] MED LIST changes: -ASCO500P18 PO; -ASPI-1100 PO; -ATOR20TA PO; -BISA10SU61 RC; -CHOL500050 PO; -CYCL5TAB PO; -DEXT15DR6 EACHEYE; +MORP10SY PO; -MORP10SY4 PO
--- NOTE | 2021-04-23 00:15 | NUR ---
Patient brought in by [facility] unit [facility] from [facility] for complaint of intermitten chest pain tadiating to left arm and left leg that he says started 2 days ago. Pt denies sob, cough, fever, changes in vision, headache, nausea. NAD. VSS.
[2021-04-23 01:04] LABS: HEMATOCRIT 38.6 % (36.7-47.1); MEAN CORPUSCULAR HEMOGLOBIN 27.2 uug (23.8-33.4); MEAN CORPUSCULAR VOLUME 83.1 fL (73.0-96.2); PLATELET COUNT (AUTO) 379 K/uL (152-348)
[2021-04-23 01:14] LABS: CARBON DIOXIDE 27 mmol/L (21-32); CHLORIDE 99 mmol/L (98-107); CREATININE 0.6 mg/dL (0.6-1.3); GLUCOSE 105 mg/dL (74-106); POTASSIUM 4.1 mmol/L (3.5-5.1); UREA NITROGEN, BLOOD 13 mg/dL (7-18)
[2021-04-23] MEDS ORDERED: MORPHINE SULFATE 4 MG/1 ML DISP.SYRIN IM ONE (01:15)
[2021-04-23 01:25] LABS: ALANINE AMINOTRANSFERASE 20 U/L (16-63); ALKALINE PHOSPHATASE 127 U/L (50-136); ASPARTATE AMINOTRANSFERASE 18 U/L (15-37); BILIRUBIN,DIRECT 0.1 mg/dL (0.0-0.2); BILIRUBIN,TOTAL 0.3 mg/dL (0.2-1.0); LIPASE 55 U/L (73-393); TOTAL PROTEIN, SERUM 7.3 g/dL (6.4-8.2)
--- NOTE | 2021-04-23 01:30 | NUR ---
Pt. has repeatedly stated since arrival that he wants IV pain medication instead of the PO medication Dr. Tirado ordered because he is unable to drink water or eat food without throwing up. Pt. denies any nausea or abdominal pain. When given water by Dr. Tirado, pt. spit it on the floor and stated he threw up.
[2021-04-23] MEDS: HYDROMORPHONE HCL 2 MG TABLET PO ONE ×2 (01:45→03:08)
--- NOTE | 2021-04-23 01:45 | NUR ---
Pt. decided he would be willing to try taking PO medication. I gave pt. water and the 2 dilaudid pills. I instructed the pt to take a small sip of water with the pills. Pt appeared to take the pills with a small sip of water but did not swallow. I asked him if he took the pills and he nodded yes. I stepped outside of the room for thirty seconds. While outside the room I did not hear any noise. When I returned to the room, the pills were intact on the floor in a large puddle of water which the patient claimed he vomited up, and the cup of water I had left by the bedside was empty. The water on the floor was clear with no saliva or bubbles.
[2021-04-23] MEDS ORDERED: HYDROMORPHONE HCL 2 MG TABLET ONE ×2 (02:06→04:18)
[2021-04-23] MEDS ORDERED: LIDOCAINE 2% (UROJET) 10 ML JELLY MM ONE (04:15)
--- NOTE | 2021-04-23 04:45 | NUR ---
Pt. in bed. NAD. VSS. Will continue to monitor. Offered food and water, pt declined.
[2021-04-23] MEDS ORDERED: OMEP20TA20 PO (04:57)
[2021-04-23] MEDS ORDERED: HYDR4TAB4 PO (04:57)
--- NOTE | 2021-04-23 07:05 | NUR ---
Paged epic for pt. admission.
--- NOTE | 2021-04-23 07:06 | NUR ---
Dr. Kulkarni will be calling back.
--- NOTE | 2021-04-23 07:19 | NUR ---
Gave report to day shift RN.
--- NOTE | 2021-04-23 07:21 | NUR ---
Dr. Perez spoke with Dr. Kulkarni. Pt admitted to tele.
--- NOTE | 2021-04-23 07:45 | NUR ---
Called tele floor for bed assignment, charge nurse to call back.
--- NOTE | 2021-04-23 08:00 | NUR ---
Pt asked if the "admitting doctor" had already placed orders and if there were any orders for him to receive "IV" pain medications. I discussed the plan of care with the patient and told him has spoken with the ER physician and accepted him for tele admission to the hospital and that we are currently waiting for tele room assignment. I notified the pt that as of right now there were no orders entered by in the system ([employer]). Pt was visibly upset, got into the w/c which was next to his gurney and stated he was going outside to smoke.
--- NOTE | 2021-04-23 08:10 | NUR ---
I went outside of the ER to check on the patient and the patient was seen sitting in the w/c on the sidewalk in front of the hospital and smoking.
--- NOTE | 2021-04-23 08:25 | NUR ---
Pt still had not returned to the ER so I went outside to check on him again. I saw the empty w/c on the sidewalk but the patient had left. I notified the ERMD.
--- NOTE | 2021-04-23 08:40 | NUR ---
I called [facility] ([phone]), spoke with Marie and notified her that the pt had eloped from our facility.
--- NOTE | 2021-04-23 08:45 | NUR ---
I called the [employer] non-emergency number, spoke with nuisance wildlife control operator#[phone] and reported the incident.
--- NOTE | 2021-04-23 09:10 | NUR ---
[facility]. Staff member stated they will call pt's pmd for further instructions.
[2021-04-26] MEDS ORDERED: LEVO500T90 PO (19:13)
== END 2021-04-23 08:45 | disposition left against medical advice (07) ==
LOC: ER 23:50
DX: R07.9 Chest pain, unspecified (principal); F17.210 Nicotine dependence, cigarettes, uncomplicated; G89.4 Chronic pain syndrome; Z85.830 Personal history of malignant neoplasm of bone; Z92.21 Personal history of antineoplastic chemotherapy; Z92.3 Personal history of irradiation; G40.909 Epilepsy, unspecified, not intractable, without status epilepticus; E78.5 Hyperlipidemia, unspecified; E66.9 Obesity, unspecified; Z68.41 Body mass index [BMI] 40.0-44.9, adult; Z88.6 Allergy status to analgesic agent; Z88.1 Allergy status to other antibiotic agents; Z91.010 Allergy to peanuts; Z91.013 Allergy to seafood; Z91.018 Allergy to other foods; J44.9 Chronic obstructive pulmonary disease, unspecified; E11.9 Type 2 diabetes mellitus without complications; Z79.4 Long term (current) use of insulin; K21.9 Gastro-esophageal reflux disease without esophagitis; F32.9 Major depressive disorder, single episode, unspecified; Z20.822 Contact with and (suspected) exposure to COVID-19; Z53.29 Procedure and treatment not carried out because of patient's decision for other reasons
CPT/HCPCS: 36415; 70030-TC; 71045; 83690; 85025; 85730; 93005

== ENCOUNTER 2021-04-25 00:57 | Inpatient (IN) | payer MEDICARE, OTHER ==
[~2021-04-25] VITALS: Ht 180.3 cm; Wt 142.9 kg
[~2021-04-25 00:57] MED LIST changes: +HYDR4TAB4 PO; -MORP10SY PO; +OMEP20TA20 PO; -PANT40TA2 PO
--- NOTE | 2021-04-25 01:14 | NUR ---
MD Patrice Peña in room to do MSE.
[2021-04-25] MEDS ORDERED: ONDANSETRON 4 MG/2 ML VIAL IV ONE (01:30)
[2021-04-25] MEDS ORDERED: HYDROMORPHONE HCL 2 MG TABLET PO ONE ×2 (01:30→03:45)
[2021-04-25 01:41] LABS: HEMATOCRIT 36.4 % (36.7-47.1); MEAN CORPUSCULAR HEMOGLOBIN 27.8 uug (23.8-33.4); MEAN CORPUSCULAR VOLUME 83.1 fL (73.0-96.2); PLATELET COUNT (AUTO) 398 K/uL (152-348)
--- NOTE | 2021-04-25 01:48 | NUR ---
Patient taken out by radiology clerk for CT scan.
[2021-04-25 01:53] LABS: CREATININE 0.7 mg/dL (0.6-1.3); POTASSIUM 4.1 mmol/L (3.5-5.1)
[2021-04-25 01:57] LABS: BILIRUBIN,DIRECT 0.1 mg/dL (0.0-0.2); BILIRUBIN,TOTAL 0.1 mg/dL (0.2-1.0); TOTAL PROTEIN, SERUM 7.2 g/dL (6.4-8.2)
[2021-04-25 02:00] LABS: *BILIRUBIN,URIN NEGATIVE (NEGATIVE); *BLOOD, URINE 3+ (NEGATIVE); *CLARITY,URINE CLOUDY (CLEAR); *COLOR,URINE YELLOW (YELLOW); *KETONES,URINE 1+ (NEGATIVE); *UROBILINOGEN,URINE 0.2 E.U./dl (NORMAL); LEUKOCYTE ESTERASE ,URINE 1+ (NEGATIVE); NITRITE, URINE NEGATIVE (NEGATIVE); UGLUCOSE NEGATIVE (NEGATIVE)
[2021-04-25 02:06] LABS: BACTERIA,URINE MANY /HPF (NONE SEEN); MUCUS,URINE FEW /LPF (0-FEW); RBC,URINE 50-80 /HPF (0-3); SQUAMOUS EPITHELIAL CELL,UR FEW /HPF (NONE SEEN); URINE AMORPHOUS URATE FEW /HPF; WBC,URINE 80-100 /HPF (0-3)
[2021-04-25] MEDS ORDERED: IOHEXOL 300MG/ML 100 ML INFUS..BTL ONE (02:06)
[2021-04-25] MEDS ORDERED: IV NORMAL SALINE 250 ML IV ONE (02:06)
[2021-04-25] MEDS ORDERED: SWABABLE VALVE TRANSFER SET EA MC ONE (02:06)
--- NOTE | 2021-04-25 02:22 | NUR ---
Patient returned back from CT Scan.
[2021-04-25] MEDS ORDERED: HYDROMORPHONE HCL 2 MG TABLET ONE (02:30)
[2021-04-25] MEDS ORDERED: ONDANSETRON 4 MG/2 ML VIAL ONE (02:31)
--- NOTE | 2021-04-25 02:50 | NUR ---
Put new odom catheter in 18 Fr, removed old 18 Fr odom catheter patient arrived to ER with per verbal order MD Patrice Peña.
--- NOTE | 2021-04-25 03:07 | NUR ---
Patient assisted to the restroom.
--- NOTE | 2021-04-25 03:15 | NUR ---
Patient will be going to med-surg room 329A. MD Stewart is the admitting hospitalist.
--- NOTE | 2021-04-25 03:25 | NUR ---
Patient A&Ox4, requested for rail of his bed to be down on the left. I informed the patient of the rail being up for safety, but he states he wants it down regardless.
[2021-04-25] MEDS ORDERED: hydrALAZINE HCL 20 MG/1 ML VIAL IV PRN (03:30)
[2021-04-25] MEDS ORDERED: LABETALOL HCL 100 MG/20 ML VIAL IV PRN (03:30)
[2021-04-25] MEDS ORDERED: MORPHINE SULFATE 2 MG/1 ML DISP.SYRIN IV PRN (03:30)
[2021-04-25] MEDS ORDERED: MELATONIN 3 MG TABLET PO PRN (03:30)
[2021-04-25] MEDS ORDERED: ONDANSETRON 4 MG/2 ML VIAL IV PRN (03:30)
[2021-04-25] MEDS ORDERED: ACETAMINOPHEN 325 MG TABLET PO PRN (03:30)
[2021-04-25] MEDS ORDERED: DEXTROSE 50% 50 ML DISP.SYRIN IV PRN (03:30)
[2021-04-25] MEDS ORDERED: LORAZEPAM 0.5 MG TABLET PO PRN (03:30)
[2021-04-25] MEDS ORDERED: INSULIN REGULAR, HUMAN 300 UNITS/3 ML VIAL SQ PRN (03:30)
[2021-04-25] MEDS ORDERED: levoFLOXacin 500 MG/D5W 100ML PIGGYBACK IV ONE (04:00)
--- NOTE | 2021-04-25 04:07 | NUR ---
Report given to RAGHAV Carey.
[2021-04-25] MEDS ORDERED: levoFLOXacin 500 MG/D5W 100 ML ONE (04:11)
--- NOTE | 2021-04-25 04:42 | NUR ---
Patient A&Ox4, uncooperative. He constantly takes the wheelchair and wheels himself in and out of the ER main entrance. I informed the patient that he needs to stay on the hospital bed so that I can monitor him for his safety and vital signs, patient refuses to stay in his room, gets up without assistance. Refuses to have the side rails of his bed up for his own safety. He goes out to near the street of [facility] to constantly smoke. I also informed him that we are a non-smoking facility and he refuses to listen.
--- NOTE | 2021-04-25 05:09 | NUR ---
Pt. admitted to 329-A med-surg, under care of Dr. Medeiros. Belongs List completed
[2021-04-25] MEDS ORDERED: HYDROMORPHONE HCL 2 MG TABLET PO PRN (05:15)
--- NOTE | 2021-04-25 06:21 | NUR ---
Patient brought to med -surg unit via gurney from Er .Dx of UTI.Patient AALOx4. On Ra. Denies SOB.Iv on Left upper arm .No s/s of infiltration.F/c in place. No hematuria noted.Patient noted with dry dressing on left knee, unable to assess d/t patient refusal. Patient stated " not now ,do it later this morning."Patient c/o abd'l pain and left knee pain ,Medicated with morphine.Blood glucose checked this A.M 192.Call light with in reach. Will endorse to oncoming shift.
[2021-04-25] MEDS: BLOOD SUGAR DIAGNOSTIC 1 EACH STRIP VI SCH ×4 (06:57→21:31)
[2021-04-25] MEDS ORDERED: HYDROMORPHONE 4 MG/1 ML DISP.SYRIN IV PRN (07:00)
[2021-04-25 07:26] VITALS: BP 103/63
[2021-04-25] MEDS ORDERED: MORPHINE SULFATE SR 30 MG TABLET.SA PO SCH (08:00)
[2021-04-25] MEDS: levETIRAcetam 500 MG TABLET PO SCH ×2 (09:07→18:06)
[2021-04-25] MEDS: FUROSEMIDE 40 MG TABLET PO SCH (09:07)
[2021-04-25] MEDS: DIVALPROEX 500 MG TABLET.DR PO SCH ×3 (09:07→18:06)
[2021-04-25] MEDS: ESCITALOPRAM OXALATE 10 MG TABLET PO SCH (09:07)
[2021-04-25] MEDS: GABAPENTIN 300 MG CAPSULE PO SCH ×3 (09:07→18:04)
[2021-04-25] MEDS: LISINOPRIL 10 MG TABLET PO SCH (09:22)
[2021-04-25] MEDS: HEPARIN SODIUM,PORCINE 5,000 UNITS/ML VIAL SQ SCH ×2 (09:22→18:12)
[2021-04-25] MEDS: INSULIN REGULAR, HUMAN 300 UNIT/3 ML VIAL SQ PRN ×2 (09:23→12:42)
[2021-04-25] MEDS ORDERED: HYDROMORPHONE 2 MG/1 ML DISP.SYRIN IV PRN (09:37)
[2021-04-25] MEDS: INSULIN GLARGINE,HUM 300 UNITS/3 ML CARTRIDGE SQ SCH ×2 (09:43→18:23)
[2021-04-25 11:00] VITALS: BP 128/82
[2021-04-25] MEDS: MORPHINE SULFATE SR 30 MG TABLET.SA PO SCH ×3 (12:38→23:00)
[2021-04-25] MEDS: HYDROMORPHONE 2 MG/1 ML DISP.SYRIN IV PRN ×3 (12:43→21:46)
--- NOTE | 2021-04-25 16:00 | NUR ---
patient requesting pain medication, dilaudid 2mg iv administered, per patient i am refusing accucheck explained risk and benefits. Per patient "today is April 25, 2021 and i am telling Ellie AVILEZ that i am requesting a change of doctor" explained to patient that i do not consent to being recorded and that i will discuss his concern to the nursing supervisor securities vault. Per patient that was my seam steamer aubrey on the phone listening to this.
[2021-04-25 16:05] VITALS: BP 111/59
--- NOTE | 2021-04-25 18:25 | NUR ---
accucheck done blood sugar 191.
--- NOTE | 2021-04-25 18:48 | NUR ---
pt sitting on bed, pain meds given as ordered. pt upset that his dilaudid is not 4mg IV q3hrs as requested, md made aware, to be seen by pain mgnt. will endorse to oncoming nurse.
--- NOTE | 2021-04-25 19:00 | NUR ---
PATIENT ALERT ORIENTED, NO SOB NO CHEST PAIN, CONT ON PAIN MANAGEMENT DUE BLADDER PAIN, AND GEN PAIN. PATIENT CORNEJO CATH PATENT DRAINING WITH YELLOW COLOR IN MODERATE, URINE HAS SEDIMENT WITH LITTLE BLOOD CLOTS, IN SMALL AMOUNT, CONT TO MONITOR.
[2021-04-25 20:19] VITALS: BP 102/68
[2021-04-25] MEDS ORDERED: QUETIAPINE FUMARATE 25 MG TABLET PO SCH (21:00)
--- NOTE | 2021-04-25 21:46 | NUR ---
PATIENT COMPLAIN OF PAIN ON RIGHT FOREARM IV SITE, ER STAFF REINSERT ONE ON RIGHT UPPER ARM 20 GAUGE, PATIENT GIVEN PAIN MEDICATIONS ORDERED. PATIENT WANTED TO HAS MD INCREASED HIS DILAUDID TO 4MG Q 3 HRS FOR PAIN, DR MORALEZ AWARE OF PATIENT REQUEST, BUT MD GIVE HIS ORDER. PATIENT WAS NOTIFIED ABOUT MD ORDERS.
--- NOTE | 2021-04-26 00:08 | NUR ---
NOTIFY DR. WALLAEC THE PATIENT REQUEST TO INCREASE HIS DILAUDID TO 4MG Q 3HR, DR CORDERO HAS NO NEW ORDER.
[2021-04-26] MEDS: MORPHINE SULFATE SR 30 MG TABLET.SA PO SCH ×3 (00:22→14:37)
[2021-04-26] MEDS: HYDROMORPHONE 2 MG/1 ML DISP.SYRIN IV PRN ×7 (00:36→16:59)
[2021-04-26] MEDS ORDERED: CIPROFLOXACIN IV 400 MG in PREMIXED 1 EACH IV SCH ×2 (04:00→12:00)
--- NOTE | 2021-04-26 04:08 | NUR ---
PT IN PAIN, UNABLE TO WEAR CPAP MACHINE, SITTING UP IN BED, PATIENT ON ROOM AIR, WILL CALL IF HE WANTS TO WEAR IT, SAID HES UNABLE TO SLEEP . Jamal WILSON RCP Addendum: 04/26/21 at 0409 by OZIEL WILSON RT Amended: Links added.
--- NOTE | 2021-04-26 04:15 | NUR ---
PATIENT IV MEDS CIPRO UNABLE TO GIVE DUE NO IV SITE, NOTIFY MD, AND WILL GET AN ORDER FOR MIDLINE.
[2021-04-26 04:27] VITALS: BP 117/71
[2021-04-26] MEDS: BLOOD SUGAR DIAGNOSTIC 1 EACH STRIP VI SCH ×2 (05:41→12:05)
[2021-04-26 06:41] LABS: HEMATOCRIT 35.8 % (36.7-47.1); MEAN CORPUSCULAR HEMOGLOBIN 27.3 uug (23.8-33.4); MEAN CORPUSCULAR VOLUME 83.9 fL (73.0-96.2); PLATELET COUNT (AUTO) 344 K/uL (152-348)
[2021-04-26 07:01] LABS: BILIRUBIN,TOTAL 0.1 mg/dL (0.2-1.0); CREATININE 0.7 mg/dL (0.6-1.3); PHOSPHOROUS 3.9 mg/dL (2.5-4.9); POTASSIUM 4.5 mmol/L (3.5-5.1); TOTAL PROTEIN, SERUM 6.9 g/dL (6.4-8.2)
--- NOTE | 2021-04-26 07:30 | NUR ---
Patient received in bed, alert and oriented x4. On RA with no SOB or difficulties breathing. No acute distress noted. Beard draining yellow urine with sediment via gravity at this time. Right FA IV is intact, but patient complains of pain when flushing. IV removed as per patient request and patient states he will wait for midline nurse. C/O abdominal pain and requests that his pain medication be changed, once again. Informed MD Kulkarni with no new orders at this time. Call light and personal belongings within easy reach. Will continue to monitor.
--- NOTE | 2021-04-26 09:00 | NUR ---
Security called to inform them of patient possible trying to elope with IV just in case because patient is exhibiting manipulative behavior and past history of patient trying to elope with IV.
--- NOTE | 2021-04-26 10:15 | NUR ---
After checking on patient, patient was in wheelchair on the floor lobby. Told patient to stay on the floor per hospital policy and he expressed understanding. He stated that the nurse a p supervisor last night informed him that he could leave the floor, but again confirmed with him that that it incorrect and that he cannot leave the floor. He again expressed understanding. After a few minutes, security called the floor to inform me that patient is outside. Went outside to get patient and he stated that security allowed him to leave. Went to security to see if patient was telling the truth and apparently security was misinformed of patient's history and did allow him to leave, stating that patients could go outside to the sidewalk. Waited with patient for 2-5 minutes to get fresh air and wheeled him back to the floor, to his room. Again informed him that he should not be leaving the floor as per hospital policy especially with a midline and he expressed understanding. Will continue to monitor.
[2021-04-26] MEDS: levETIRAcetam 500 MG TABLET PO SCH (10:24)
[2021-04-26] MEDS: FUROSEMIDE 40 MG TABLET PO SCH (10:24)
[2021-04-26] MEDS: ESCITALOPRAM OXALATE 10 MG TABLET PO SCH (10:24)
[2021-04-26] MEDS: GABAPENTIN 300 MG CAPSULE PO SCH ×2 (10:24→12:37)
[2021-04-26] MEDS: DIVALPROEX 500 MG TABLET.DR PO SCH ×2 (10:24→12:37)
[2021-04-26] MEDS: LISINOPRIL 10 MG TABLET PO SCH (10:25)
[2021-04-26] MEDS: INSULIN REGULAR, HUMAN 300 UNIT/3 ML VIAL SQ PRN ×2 (10:29→12:39)
[2021-04-26] MEDS: INSULIN GLARGINE,HUM 300 UNITS/3 ML CARTRIDGE SQ SCH (10:51)
[2021-04-26] MEDS: HEPARIN SODIUM,PORCINE 5,000 UNITS/ML VIAL SQ SCH (10:51)
[2021-04-26 11:15] VITALS: BP 107/63
--- NOTE | 2021-04-26 16:00 | NUR ---
Again received call from security that patient was outside the hospital, across the street on [facility]. Once patient returned to floor, patient again informed of policy and became aggravated, yelling at staff in the hallway, and refusing to return to his room. Heidi perdomo was called. Patient returned to room voluntarily once security came to the floor, but still agitated and states he has the right to go wherever he wants in the hospital. Again, per patient's history of AMA, it was deemed unsafe for patient to leave hospital grounds with a midline. Dr. Kulkarni contacted with new discharge orders at this time. Case management contacted. Transportation arranged back to [facility]. Police also contacted per history of aggravation, agitation, when leaving the hospital. Will proceed with discharge orders and continue to monitor.
--- NOTE | 2021-04-26 17:55 | NUR ---
Patient discharged in satisfactory condition. Midline was discharged. Patient refused to sign all documents related to discharge, but did sign for release of medical records. Patient was more cooperative once [employer] was in the room. He was stating that he would report this incident to the [employer], to his contract attorney, and to the board. I stated that that was his right as a patient. Report was already given to RAGHAV Arshad at [facility]. Patient taken via gurney with all his personal belongings in satisfactory condition.
[2021-04-26] MEDS ORDERED: LEVO500T90 PO (19:13)
== END 2021-04-26 17:55 | DRG 689 ==
LOC: ER 01:00 → MEDSURG3 04:41
PROVIDERS: ADMIT Internal Medicine; ATTEND Internal Medicine
PROC: 05H633Z Insertion of Infusion Device into Left Subclavian Vein, Percutaneous Approach (ICD-10-PCS; principal; 2021-04-26)
PROC: B547ZZA Ultrasonography of Left Subclavian Vein, Guidance (ICD-10-PCS; 2021-04-26)
DX: N39.0 Urinary tract infection, site not specified (principal); E43 Unspecified severe protein-calorie malnutrition; K22.10 Ulcer of esophagus without bleeding; Z68.41 Body mass index [BMI] 40.0-44.9, adult; G40.909 Epilepsy, unspecified, not intractable, without status epilepticus; G89.4 Chronic pain syndrome; E66.01 Morbid (severe) obesity due to excess calories; D64.9 Anemia, unspecified; E11.9 Type 2 diabetes mellitus without complications; E78.5 Hyperlipidemia, unspecified; F17.210 Nicotine dependence, cigarettes, uncomplicated; I25.10 Atherosclerotic heart disease of native coronary artery without angina pectoris; Z95.5 Presence of coronary angioplasty implant and graft; N40.1 Benign prostatic hyperplasia with lower urinary tract symptoms; J44.9 Chronic obstructive pulmonary disease, unspecified; E88.09 Other disorders of plasma-protein metabolism, not elsewhere classified; Z79.4 Long term (current) use of insulin; Z71.6 Tobacco abuse counseling; Z20.822 Contact with and (suspected) exposure to COVID-19; G47.33 Obstructive sleep apnea (adult) (pediatric); Z85.830 Personal history of malignant neoplasm of bone
CPT/HCPCS: 36415; 70030-TC; 71045; 83690; 84100; 85025; 85730; 87077; 87086; 93005; A4663; G0378; J0744; J1170; J1644; J1815; J1956; J2270; J2405; J7040; J7050; Q9967

== ENCOUNTER 2021-05-28 13:30 | Inpatient (IN) | payer MEDICARE, OTHER ==
[~2021-05-28] VITALS: Ht 180.3 cm; Wt 142.9 kg
[~2021-05-28 13:30] MED LIST changes: +LEVO500T90 PO
--- NOTE | 2021-05-28 13:40 | NUR ---
Patient is in room 4. He is awake and alert. Has a midline IV on his right arm. States "use this IV, its good". I flushed it and it flushed well and site looked good with no drainage, swelling or redness.
[2021-05-28] MEDS ORDERED: MORPHINE SULFATE 2 MG/1 ML DISP.SYRIN IV ONE (14:00)
[2021-05-28] MEDS ORDERED: ONDANSETRON 4 MG/2 ML VIAL IV ONE (14:00)
[2021-05-28] MEDS ORDERED: IV NORMAL SALINE 500 ML BAG IV ONE (14:00)
[2021-05-28] MEDS ORDERED: MORPHINE SULFATE 4 MG/1 ML DISP.SYRIN ONE (14:08)
[2021-05-28] MEDS ORDERED: ONDANSETRON 4 MG/2 ML VIAL ONE (14:08)
[2021-05-28] MEDS ORDERED: INSU100V10 SQ (14:13)
[2021-05-28] MEDS ORDERED: LOPE2CAP PO (14:13)
[2021-05-28 14:53] LABS: HEMATOCRIT 33.4 % (36.7-47.1); MEAN CORPUSCULAR HEMOGLOBIN 26.9 uug (23.8-33.4); MEAN CORPUSCULAR VOLUME 81.2 fL (73.0-96.2); PLATELET COUNT (AUTO) 430 K/uL (152-348)
--- NOTE | 2021-05-28 15:00 | NUR ---
Patient states pain diminished "some"
[2021-05-28 15:02] LABS: CREATININE 0.7 mg/dL (0.6-1.3)
[2021-05-28 15:13] LABS: BILIRUBIN,DIRECT 0.1 mg/dL (0.0-0.2); BILIRUBIN,TOTAL 0.2 mg/dL (0.2-1.0); TOTAL PROTEIN, SERUM 6.2 g/dL (6.4-8.2)
--- NOTE | 2021-05-28 16:38 | NUR ---
Waiting for bed availability on med/surg floor. Patient is sleeping at this time. Vital signs stable
[2021-05-28] MEDS ORDERED: ALBUTEROL SULFATE 8 GM HFA.AER.AD IH PRN (18:30)
[2021-05-28] MEDS ORDERED: IPRATROPIUM BROMIDE 12.9 GM INHALER INH PRN (18:30)
--- NOTE | 2021-05-28 18:41 | NUR ---
Patient woke up for a while and is now sleeping again. Waiting for Med/Surg bed to be available
[2021-05-28] MEDS ORDERED: IV D5 1/2 NS 1000 ML 1,000 ML IV PRN (18:45)
[2021-05-28] MEDS ORDERED: ACETAMINOPHEN 650 MG SUPP.RECT RC PRN (18:45)
[2021-05-28] MEDS ORDERED: LORAZEPAM 2 MG/1 ML VIAL IV PRN (18:45)
--- NOTE | 2021-05-28 19:02 | NUR ---
hand off report given to Nicole AVILEZ
[2021-05-28] MEDS ORDERED: ALBUTEROL SULFATE 2.5 MG/3 ML NEBU NEB PRN (19:45)
[2021-05-28] MEDS ORDERED: QUETIAPINE FUMARATE 25 MG TABLET PO PRN (19:45)
[2021-05-28] MEDS ORDERED: IPRATROPIUM BROMIDE 0.5 MG/2.5 ML NEBU NEB PRN (20:15)
[2021-05-28 21:57] VITALS: BP 100/52
[2021-05-28] MEDS: HYDROMORPHONE 1 MG/1 ML DISP.SYRIN IV PRN (22:20)
[2021-05-28] MEDS ORDERED: levETIRAcetam 500 MG/5 ML VIAL IV ONE (22:37)
[2021-05-28] MEDS ORDERED: VALPROATE SODIUM 500 MG/5 ML VIAL IV ONE (22:37)
[2021-05-28] MEDS: levETIRAcetam IV 1,000 MG in IV DEXTROSE 5% 100 ML IV SCH (23:06)
[2021-05-28] MEDS: VALPROATE SODIUM IV 500 MG in IV DEXTROSE 5% 100 ML IV SCH (23:07)
[2021-05-29] MEDS ORDERED: VALPROATE SODIUM 500 MG/5 ML VIAL IV ONE (02:38)
[2021-05-29] MEDS: HYDROMORPHONE 1 MG/1 ML DISP.SYRIN IV PRN ×5 (04:16→23:47)
[2021-05-29 04:35] VITALS: BP 108/69
--- NOTE | 2021-05-29 04:55 | NUR ---
Receive a 46 your from ER with admitting diagnosis of GI Bleed. AAOx4 On pain management. Medicated with Dilaudiid 1mg IV q4hr as needed for pain Will monitor patient. Beard catheter intact draining yellow urine. I & O monitor. VSS. Needs attended.
[2021-05-29] MEDS: VALPROATE SODIUM IV 500 MG in IV DEXTROSE 5% 100 ML IV SCH ×3 (05:04→21:30)
--- NOTE | 2021-05-29 07:30 | NUR ---
Received report from RAGHAV Rodriguez. All questions, comments, and concerns were addressed. Received patient resting quietly in assigned bed. Bed is in low and locked position. Patient with 1:1 sitter for safety.
[2021-05-29] MEDS: PANTOPRAZOLE SODIUM 40 MG VIAL IV SCH ×2 (08:49→09:00)
[2021-05-29] MEDS: levETIRAcetam IV 1,000 MG in IV DEXTROSE 5% 100 ML IV SCH ×3 (08:49→19:52)
[2021-05-29 10:42] LABS: HEMATOCRIT 36.8 % (36.7-47.1); MEAN CORPUSCULAR HEMOGLOBIN 26.2 uug (23.8-33.4); MEAN CORPUSCULAR VOLUME 80.2 fL (73.0-96.2); PLATELET COUNT (AUTO) 446 K/uL (152-348)
[2021-05-29] MEDS ORDERED: HYDROMORPHONE 1 MG/1 ML DISP.SYRIN IV PRN (10:45)
[2021-05-29 10:55] LABS: BILIRUBIN,TOTAL 0.3 mg/dL (0.2-1.0); CREATININE 0.7 mg/dL (0.6-1.3); PHOSPHOROUS 3.1 mg/dL (2.5-4.9); POTASSIUM 4.2 mmol/L (3.5-5.1); TOTAL PROTEIN, SERUM 6.4 g/dL (6.4-8.2)
[2021-05-29 12:00] VITALS: BP 105/50
[2021-05-29 12:35] LABS: THYROID STIMULATING HORMONE 0.514 mIU/mL (0.358-3.740)
--- NOTE | 2021-05-29 15:30 | NUR ---
Patient's IV site in right forearm became painful and red. Patient states there is pain and burning with saline flush. IV site was placed on 05/26 at patient's previous facility. IV site was discontinued. This filing writer attempted to reinsert IV, but failed. notified and orders received for Midline placement. Orders placed and Farooq Coombs NP notified for midline placement. Midline placed without adverse event.
--- NOTE | 2021-05-29 16:00 | NUR ---
Patient reporting severe pain 10/10 in lower abdomen. Hydromorphone 1 mg IV PRN administered without adverse reaction. Patient resting quietly in his assigned bed. Respirations are even and unlabored, no respiratory distress noted. Patient refusing VS to be taken.
--- NOTE | 2021-05-29 17:58 | NUR ---
Patient stating that he is in severe pain and "cannot wait" for the next available dose of hydromorphine 1 mg IV PRN. MD notified and obtained orders to administer PRN hydromorphone at this time. Medication administered with no adverse reaction. Patient resting quietly in his assigned bed. Respirations are even and unlabored, no respiratory distress noted. Patient continues to refuse VS to be taken.
--- NOTE | 2021-05-29 17:59 | NUR ---
Patient is alert and oriented. Respirations are even and unlabored, no respiratory distress noted. Patient breathing normally on room air. Patient is angry, irritable, demanding, and medication seeking for PRN Hydromorphone. Patient reports that he is having bleeding in his stool, but this comic writer saw patient's stool and it is brown with no bleeding noted. Patient endorses severe pain in his abdomen. Patient is unable to ambulate independently, requires assistance from staff. Patient has a odom catheter for urinary retention. Noted with clear, yellow urine. Patient educated about appropriate ways to communicate needs to staff.
[2021-05-29] MEDS: ONDANSETRON 4 MG/2 ML VIAL IV PRN (19:52)
[2021-05-29] MEDS ORDERED: DEXTROSE 50% 50 ML DISP.SYRIN IV PRN (20:00)
[2021-05-29] MEDS ORDERED: INSULIN REGULAR, HUMAN 300 UNITS/3 ML VIAL SQ PRN (20:00)
[2021-05-29 20:30] VITALS: BP 145/82
[2021-05-29 20:35] VITALS: BP_SYST 145
[2021-05-29] MEDS ORDERED: ATORVASTATIN 40 MG TABLET PO SCH (21:00)
[2021-05-29] MEDS: BLOOD SUGAR DIAGNOSTIC 1 EACH STRIP VI SCH (21:24)
--- NOTE | 2021-05-30 01:08 | NUR ---
Patient request for ativan IV for anxiety. Discussion about Psychiatrist prescription for seroquel. Refuses pills because nausea. Patient is nothing by mouth. Alton Garces RN
--- NOTE | 2021-05-30 01:20 | NUR ---
Patient call for pain medication and nausea medication. Education about as needed every 3 hours and 6 hours respectively. Patient says his pain and nausea have increased. Provided reassurance regarding labwork for hemoglobin and hematocrit in the am. Alton Garces RN
[2021-05-30] MEDS: ONDANSETRON 4 MG/2 ML VIAL IV PRN (01:51)
[2021-05-30] MEDS: HYDROMORPHONE 1 MG/1 ML DISP.SYRIN IV PRN ×5 (02:47→13:48)
[2021-05-30] MEDS: VALPROATE SODIUM IV 500 MG in IV DEXTROSE 5% 100 ML IV SCH (05:48)
[2021-05-30] MEDS: BLOOD SUGAR DIAGNOSTIC 1 EACH STRIP VI SCH ×2 (06:50→12:34)
[2021-05-30] MEDS: INSULIN REGULAR, HUMAN 300 UNIT/3 ML VIAL SQ PRN ×2 (06:55→12:38)
--- NOTE | 2021-05-30 07:30 | NUR ---
Handoff with RAGHAV Green. Alton Garces RN
--- NOTE | 2021-05-30 08:00 | NUR ---
pt in bed resting, a/ox4, on room air, no signs of distress, chronic pain, was given pain medications at 0541, to be given next dose at 4hrs. pt has right UA ML, NPO at this time, indwelling watermelon harvesting supervisor odom in place, draining yellow urine. bed low and locked call light within reach, will continue with plan of care,
[2021-05-30] MEDS: PANTOPRAZOLE SODIUM 40 MG VIAL IV SCH (08:44)
[2021-05-30] MEDS: levETIRAcetam IV 1,000 MG in IV DEXTROSE 5% 100 ML IV SCH (08:45)
[2021-05-30] MEDS ORDERED: OXYCODONE HCL 20 MG TAB.SR.12H PO SCH (10:45)
[2021-05-30] MEDS ORDERED: NALOXONE HCL 0.4 MG/ML AMPUL IV PRN (10:45)
[2021-05-30 11:29] VITALS: BP 149/99
[2021-05-30] MEDS: GABAPENTIN 300 MG CAPSULE PO SCH ×2 (12:34→13:48)
[2021-05-30] MEDS ORDERED: QUET25TA36 PO (13:20)
[2021-05-30] MEDS ORDERED: ATOR40TA PO (13:20)
[2021-05-30] MEDS ORDERED: GABA300C PO (13:20)
[2021-05-30] MEDS ORDERED: HYDR4TAB4 PO (13:20)
--- NOTE | 2021-05-30 15:30 | NUR ---
pt discharged back to [facility], [facility]. pt dc'd with all belongings in hand, pt given taxi voucher. all exit care instructions given to pt, pt verbalized understanding. all concerns addressed, pt left via taxi.
[2021-05-30 15:38] VITALS: BP 120/73
== END 2021-05-30 15:30 | DRG 392 ==
LOC: ER 13:30 → MEDSURG3 20:10
PROVIDERS: ADMIT Internal Medicine; ATTEND Internal Medicine
PROC: 05H533Z Insertion of Infusion Device into Right Subclavian Vein, Percutaneous Approach (ICD-10-PCS; principal; 2021-05-29)
PROC: B546ZZA Ultrasonography of Right Subclavian Vein, Guidance (ICD-10-PCS; 2021-05-29)
DX: R11.2 Nausea with vomiting, unspecified (principal); D68.59 Other primary thrombophilia; I50.32 Chronic diastolic (congestive) heart failure; E87.1 Hypo-osmolality and hyponatremia; E44.0 Moderate protein-calorie malnutrition; Z68.41 Body mass index [BMI] 40.0-44.9, adult; G40.909 Epilepsy, unspecified, not intractable, without status epilepticus; E78.5 Hyperlipidemia, unspecified; F43.10 Post-traumatic stress disorder, unspecified; G89.3 Neoplasm related pain (acute) (chronic); G89.4 Chronic pain syndrome; J44.9 Chronic obstructive pulmonary disease, unspecified; Z85.830 Personal history of malignant neoplasm of bone; Z90.49 Acquired absence of other specified parts of digestive tract; Z79.899 Other long term (current) drug therapy; Z95.5 Presence of coronary angioplasty implant and graft; Z20.822 Contact with and (suspected) exposure to COVID-19; F39 Unspecified mood [affective] disorder; K75.81 Nonalcoholic steatohepatitis (NASH); Z79.4 Long term (current) use of insulin; K21.00 Gastro-esophageal reflux disease with esophagitis, without bleeding; F32.9 Major depressive disorder, single episode, unspecified; Z79.891 Long term (current) use of opiate analgesic; F41.9 Anxiety disorder, unspecified; E66.01 Morbid (severe) obesity due to excess calories; E88.81 Metabolic syndrome and other insulin resistance; F17.210 Nicotine dependence, cigarettes, uncomplicated; G47.33 Obstructive sleep apnea (adult) (pediatric); F90.9 Attention-deficit hyperactivity disorder, unspecified type; I11.0 Hypertensive heart disease with heart failure; I25.10 Atherosclerotic heart disease of native coronary artery without angina pectoris; Z87.440 Personal history of urinary (tract) infections; K29.70 Gastritis, unspecified, without bleeding; E11.65 Type 2 diabetes mellitus with hyperglycemia; Z91.19 Patient's noncompliance with other medical treatment and regimen; M19.90 Unspecified osteoarthritis, unspecified site; N40.0 Benign prostatic hyperplasia without lower urinary tract symptoms; Z76.5 Malingerer [conscious simulation]; R19.7 Diarrhea, unspecified
CPT/HCPCS: 36415; 71045; 80164; 83550; 83735; 84100; 84443; 85025; 85730; 86850; 86900; 86901; 93005; A4663; C9113; G0378; J1170; J1815; J1953; J2270; J2405; J3490; J7030; J7040; J7060

== ENCOUNTER 2021-10-30 21:45 | Inpatient (IN) | payer MEDICARE, OTHER ==
[~2021-10-30] VITALS: Ht 177.8 cm; Wt 153.0 kg
[~2021-10-30 21:45] MED LIST changes: +ATOR40TA PO; -DEXT50DI8 IV; -FLUT1BLS IH; +GABA300C PO; -GABA600T12 PO; +INSU100V10 SQ; -INSU100V7 SQ; -LEVO500T90 PO; +LOPE2CAP PO; -LORA-258 PO; -MORP60CA19 PO; -MULT-594 PO; -ONDA8TAB6 PO; +QUET25TA36 PO
[2021-10-30] MEDS ORDERED: FLUCONAZOLE 100 MG TABLET PO ONE (22:00)
[2021-10-30] MEDS ORDERED: LACT1CAP83 PO (22:14)
[2021-10-30] MEDS ORDERED: HYDROMORPHONE HCL 2 MG TABLET PO ONE (22:15)
[2021-10-30] MEDS ORDERED: ONDANSETRON 4 MG/2 ML VIAL IV ONE (22:15)
[2021-10-30] MEDS ORDERED: HYDROMORPHONE HCL 2 MG TABLET ONE (22:53)
[2021-10-30] MEDS ORDERED: FLUCONAZOLE 100 MG TABLET ONE ×2 (22:53→22:54)
[2021-10-30] MEDS ORDERED: ONDANSETRON 4 MG/2 ML VIAL ONE (22:53)
[2021-10-30 23:07] LABS: HEMATOCRIT 43.4 % (36.7-47.1); MEAN CORPUSCULAR HEMOGLOBIN 27.6 uug (23.8-33.4); MEAN CORPUSCULAR VOLUME 83.2 fL (73.0-96.2); PLATELET COUNT (AUTO) 346 K/uL (152-348)
[2021-10-30 23:13] LABS: CREATININE 0.8 mg/dL (0.6-1.3); POTASSIUM 4.4 mmol/L (3.5-5.1)
[2021-10-30] MEDS ORDERED: DEXTROSE 50% 50 ML DISP.SYRIN IV PRN (23:15)
[2021-10-30] MEDS ORDERED: REMEDY ESSENTIAL ZINC PASTE 113 GM TP PRN (23:15)
[2021-10-30] MEDS ORDERED: ACETAMINOPHEN 325 MG TABLET PO PRN (23:15)
[2021-10-30] MEDS ORDERED: MAGNESIUM HYDROXIDE 30 ML LIQUID UDC PO PRN (23:15)
--- NOTE | 2021-10-30 23:23 | NUR ---
pt has an IV ABX ordered that is not available in this dept, RN spoke with MD who ordered the3 ABX, JÚNIOR PEDRO. ER told RN to hold the ABX while in the dept due to lack of availablity and that it could be given on the floor. pt made aware of pending administration of ABX pt also arrived with a chronic odom catheter in place, pt unable to state exact duration in which he has required the cath, however states it was changed recently, RN inquired as to when "recent" was, pt says 2 to 3 weeks. odom is draining appropriately with no obvious damage or deformity pt vitals stable, RN will CTM
[2021-10-30 23:25] LABS: BILIRUBIN,DIRECT 0.1 mg/dL (0.0-0.2); BILIRUBIN,TOTAL 0.3 mg/dL (0.2-1.0); TOTAL PROTEIN, SERUM 7.2 g/dL (6.4-8.2)
[2021-10-30] MEDS ORDERED: CALC-469 PO (23:36)
[2021-10-30] MEDS ORDERED: FLUC100T PO (23:36)
[2021-10-30] MEDS ORDERED: DIVA-78 PO (23:36)
[2021-10-30] MEDS ORDERED: ESCI10TA PO (23:43)
[2021-10-30] MEDS ORDERED: LORA-259 PO (23:46)
[2021-10-30] MEDS ORDERED: PROP10TA10 PO (23:53)
[2021-10-30] MEDS ORDERED: QUET25TA36 PO (23:58)
[2021-10-30] MEDS ORDERED: INSU300I3 SQ (23:58)
[2021-10-30] MEDS ORDERED: ONDA4TAB5 PO (23:58)
--- NOTE | 2021-10-31 | NUR ---
rec'd pt c/o suprapubic abdomial pain and bilateral pedal edema. pupon being roomed pt began asking MD for IV pain medication by name. MD informed pt he would treat his pain but would be able to give the route in whichthe pt had requested, pt expresssed frustration with MDs decision. imaging started on pts lower extremities but pt requested test be stopped d/t pain and only be able to continue with IV pain MD. MD spoke with patient once again and reminded him ogf thier earlier conversation and the fact that he had been given the dose he had requested just through a different route. throughout pts stay in the dept, he remained alert and oriented with stable vital signs. awaiting admission, pt states specifically stated he may have IV marisol medication, ER MD informed of statement
[2021-10-31] MEDS ORDERED: MELATONIN 3 MG TABLET PO PRN (00:15)
[2021-10-31] MEDS ORDERED: ALBUTEROL SULFATE 8 GM HFA.AER.AD IH PRN (00:15)
[2021-10-31] MEDS ORDERED: IPRATROPIUM BROMIDE 12.9 GM INHALER INH PRN (00:15)
[2021-10-31] MEDS ORDERED: LORAZEPAM 1 MG TABLET PO PRN (00:15)
--- NOTE | 2021-10-31 00:59 | NUR ---
pt admitted to Med Surg under the care of Dr. Slick dotson assigned and report given to full time staff interpreter, all questions answered, including allergies, latest vitals and pts mental status. MSRA swab completed as well as belongings sheet. pt updated as to plan of care and was transported to the floor in stable condition with all belongings accounted for
--- NOTE | 2021-10-31 01:30 | NUR ---
Admitted a 46 years old patient with Dx of UTI VRE. Patient AAOx4. In no apparent distress. Denies any SOB. With Hx of chronic pain and opioid dependent. Informed LINUX PROGRAMMER Coombs that pt has no order for pain medication, awaiting for any new order. IV site on left FA intact and patent. Will start Zyvox 600mg via IV per order. Beard catheter intact and draining via gravity. Isolation precaution initiated. Routine admission care done. Plan of care initiated. Safety measure initiated and call light within reached.
[2021-10-31] MEDS: LINEZOLID IV 600 MG in PREMIXED 1 EACH IV SCH ×3 (01:34→20:19)
[2021-10-31] MEDS ORDERED: ALBUTEROL SULFATE 2.5 MG/3 ML NEBU NEB PRN (01:45)
[2021-10-31] MEDS ORDERED: IPRATROPIUM BROMIDE 0.5 MG/2.5 ML NEBU NEB PRN (01:45)
--- NOTE | 2021-10-31 01:45 | NUR ---
Obtain admitting order for Dilaudid 4mg PO every 3HRS PRN from JAVIER Coombs. Will carry out order.
--- NOTE | 2021-10-31 02:00 | NUR ---
Trying to give patient his Dilaudid 4mg PO but patient refused and insisting on getting an IV Dilaudid. Informed WAX ROOM SUPERVISOR Kaylie and with order to give Dilaudid tablet per order. Informed patient and still insisting to get IV form of Dilaudid and stating that he was promised by his Doctor that he will get IV Dilaudid and stating he wants to go back to the senior living.
[2021-10-31 02:30] VITALS: BP 114/57
--- NOTE | 2021-10-31 02:30 | NUR ---
After talking to patient further and informed that we will have to find transportation to return him back to SNF, patient agreed to take Dilaudid 4mg tablet PO. Will provide pain medication per order.
[2021-10-31] MEDS: ONDANSETRON 4 MG/2 ML VIAL IV PRN (02:42)
[2021-10-31] MEDS: HYDROMORPHONE HCL 2 MG TABLET PO PRN ×3 (02:43→09:09)
[2021-10-31 05:07] VITALS: BP 93/44
[2021-10-31] MEDS: PANTOPRAZOLE SODIUM 40 MG TABLET.DR PO SCH (06:04)
[2021-10-31] MEDS: BLOOD SUGAR DIAGNOSTIC 1 EACH STRIP VI SCH ×4 (06:30→20:29)
--- NOTE | 2021-10-31 06:31 | NUR ---
Patient remains AAOx4. In no apparent distress. Denies any SOB. Dilaudid 4mg PO every 3 hours PRN for pain and effective. IV site on left FA intact and patent. IV antibiotic given with no adverse effect noted. Beard catheter intact and draining via gravity. Isolation precaution maintained. Needs assessed and attended to. Safety measure maintained and call light within reached.
[2021-10-31 06:33] LABS: HEMATOCRIT 36.8 % (36.7-47.1); MEAN CORPUSCULAR HEMOGLOBIN 27.1 uug (23.8-33.4); MEAN CORPUSCULAR VOLUME 81.6 fL (73.0-96.2); PLATELET COUNT (AUTO) 318 K/uL (152-348)
[2021-10-31 06:46] LABS: CREATININE 0.7 mg/dL (0.6-1.3); MAGNESIUM 1.9 mg/dL (1.8-2.4); PHOSPHOROUS 3.7 mg/dL (2.5-4.9); POTASSIUM 4.1 mmol/L (3.5-5.1)
[2021-10-31] MEDS: INSULIN REGULAR, HUMAN 300 UNIT/3 ML VIAL SQ PRN ×3 (08:03→20:22)
[2021-10-31] MEDS: ACIDOPHILUS/BULGARICUS CHEW TAB PO SCH ×2 (08:40→18:36)
[2021-10-31] MEDS: levETIRAcetam 500 MG TABLET PO SCH ×2 (08:41→20:20)
[2021-10-31] MEDS: GABAPENTIN 300 MG CAPSULE PO SCH ×4 (08:41→18:38)
[2021-10-31] MEDS: FLUCONAZOLE 100 MG TABLET PO SCH (08:41)
[2021-10-31] MEDS: DIVALPROEX 500 MG TABLET.DR PO SCH ×4 (08:42→18:36)
[2021-10-31] MEDS: PROPRANOLOL HCL 10 MG TABLET PO SCH ×2 (08:51→13:00)
[2021-10-31] MEDS ORDERED: LINEZOLID IV 600 MG in PREMIXED 1 EACH IV SCH (09:00)
[2021-10-31] MEDS ORDERED: LISINOPRIL 10 MG TABLET PO SCH (09:00)
[2021-10-31] MEDS ORDERED: FUROSEMIDE 40 MG TABLET PO SCH (09:00)
[2021-10-31] MEDS ORDERED: INSULIN GLARGINE,HUM 300 UNITS/3 ML CARTRIDGE SQ SCH (09:00)
--- NOTE | 2021-10-31 11:19 | NUR ---
patient requesting IV Dilaudid instead of PO, Dr calvo made aware. Patient is getting agitated and verbally agressive toward the nursed stating " call dr calvo now and get me Dilaudid IV now" patient sated he is going to refused everything intill he get Dilaudid IV.
--- NOTE | 2021-10-31 11:54 | NUR ---
Patient refused accucheck, risks and benefits explained, patient verbalized understanding of it, no acute distress noted at this time
--- NOTE | 2021-10-31 12:03 | NUR ---
patient requested for pain medication,offered patient PO Dilaudid, patient stated he does not want PO Dilaudid, he only wants IV, patient is verbally aggressive, sitting at the edge of the bed, talking to someone on the phone.
--- NOTE | 2021-10-31 13:27 | NUR ---
patient is very aggressive, verbally abusive toward staff, refusing care and all the medications offered, risks and benefits explained, patient is alert, oriented x4, verbalized understanding of it, patient came out to hallway yelling and screaming saying that he wants to go AMA, nursing home manager also talked to patient and tried to explain, however patient insisted to go AMA, Tom prototype engineer manager on duty made aware as well, IV removed from patient. patient is alert, oriented x4, no acute distress noted at this time.
--- NOTE | 2021-10-31 13:42 | NUR ---
patient would like to stay, continue with care as ordered
[2021-10-31] MEDS: HYDROMORPHONE 2 MG/1 ML DISP.SYRIN IV PRN ×4 (14:05→23:22)
[2021-10-31 16:17] VITALS: BP 120/83
--- NOTE | 2021-10-31 19:30 | NUR ---
Receive patient lying in bed. AAOx4. In no apparent distress. Denies any SOB. IV site on right hand intact and patent. Beard catheter intact and draining via gravity. Contact precaution observed. Needs assessed and attended to. Safety measure initiated and call light within reached.
[2021-10-31] MEDS: QUETIAPINE FUMARATE 25 MG TABLET PO SCH (20:20)
[2021-10-31] MEDS: ATORVASTATIN 40 MG TABLET PO SCH (20:20)
[2021-10-31] MEDS: ESCITALOPRAM OXALATE 10 MG TABLET PO SCH (20:20)
[2021-10-31] MEDS ORDERED: QUETIAPINE FUMARATE 25 MG TABLET PO SCH (21:00)
[2021-10-31 21:25] VITALS: BP 95/37
[2021-11-01 04:43] VITALS: BP 97/55
[2021-11-01] MEDS: PANTOPRAZOLE SODIUM 40 MG TABLET.DR PO SCH (06:10)
--- NOTE | 2021-11-01 06:24 | NUR ---
Patient slept well through out the night. Dilaudid 1 mg IV given every 3HRS PRN for pain and effective. IV site on right hand intact and patent. No adverse reaction noted from Iv antibiotic. Beard catheter intact and draining via gravity. Patient refusing to have blood sugar check at this time. Contact precaution maintained. Needs attended to and met. Safety measure maintained and call light within reached.
[2021-11-01] MEDS: BLOOD SUGAR DIAGNOSTIC 1 EACH STRIP VI SCH ×4 (07:30→20:53)
--- NOTE | 2021-11-01 07:51 | NUR ---
patient refused blood sugar check, risks and benefits explained, patient verbalized understanding of it, patient right to refuse respected
[2021-11-01] MEDS: GABAPENTIN 300 MG CAPSULE PO SCH ×3 (08:35→17:17)
[2021-11-01] MEDS: FLUCONAZOLE 100 MG TABLET PO SCH (08:35)
[2021-11-01] MEDS: LINEZOLID IV 600 MG in PREMIXED 1 EACH IV SCH (08:35)
[2021-11-01] MEDS: levETIRAcetam 500 MG TABLET PO SCH ×2 (08:36→20:22)
[2021-11-01] MEDS: ACIDOPHILUS/BULGARICUS CHEW TAB PO SCH ×2 (08:36→17:17)
[2021-11-01] MEDS: DIVALPROEX 500 MG TABLET.DR PO SCH ×4 (08:37→17:17)
[2021-11-01] MEDS: HYDROMORPHONE 2 MG/1 ML DISP.SYRIN IV PRN ×5 (08:57→23:26)
[2021-11-01] MEDS: INSULIN REGULAR, HUMAN 300 UNIT/3 ML VIAL SQ PRN ×3 (11:08→20:45)
[2021-11-01 11:13] VITALS: BP 100/50
--- NOTE | 2021-11-01 13:25 | NUR ---
patient has been sleeping intermittently. no sob, resp even nonlabored, skin warm and dry to touch, no distress noted
[2021-11-01 15:13] VITALS: BP 127/68
--- NOTE | 2021-11-01 18:20 | NUR ---
no acute distress noted, odom intact, draining dark yellow color urine. patient is alert, oriented x4, no sob, resp even nonlabored, skin warm and dry to touch. patient gets angry and verbally abusive to staff at times. noncompliant with dietary recommendations. Addendum: 11/01/21 at 1838 by NAYAN CHEUNG RN RN patient always wants double portion of diet and ham sandwiches, juices, despite explaining importance of better control of diabetes, with carbohydrate controlled diet, patient gets very aggressive and angry if explained about carbohydrate controlled diet, patient stated he understands risks and benefits, regardless he still requests regular diet and double portions.
[2021-11-01 20:00] VITALS: BP 125/65
[2021-11-01] MEDS: ATORVASTATIN 40 MG TABLET PO SCH (20:22)
[2021-11-01] MEDS: ESCITALOPRAM OXALATE 10 MG TABLET PO SCH (20:25)
--- NOTE | 2021-11-01 20:27 | NUR ---
Took 2 vials dilaudid by mistake, tried to return one vial to pyxis, but vial drop in the floor broke into pieces, waisted witnessed by Harshad AVILEZ. Addendum: 11/02/21 at 0804 by ESTEPHANIA HORNE RN Took 2 vials dilaudid by mistake, tried to return one vial to pyxis, but vial drop in the floor broke into pieces, waisted witnessed by Harshad AVILEZ. ERROR IN CHARTING.
[2021-11-01] MEDS: LINEZOLID 600 MG TABLET PO SCH (20:36)
[2021-11-01] MEDS: QUETIAPINE FUMARATE 25 MG TABLET PO SCH (20:36)
[2021-11-01] MEDS: ONDANSETRON 4 MG/2 ML VIAL IV PRN (23:21)
--- NOTE | 2021-11-01 23:26 | NUR ---
Author took 2 vials of dilaudid wasted 1mg initially but gave only 1.5mg, unable to waste in pyxis but waisted 1.5mg witnessed by Kashif Ambriz.
[2021-11-02] MEDS: HYDROMORPHONE 2 MG/1 ML DISP.SYRIN IV PRN ×4 (02:32→12:17)
--- NOTE | 2021-11-02 02:32 | NUR ---
Pt c/o back pain, abdomen and partly chest pain, 10/10 and intermittently aching; patient given Dilaudid 1.5 mg IVP
[2021-11-02 04:00] VITALS: BP 130/65
[2021-11-02] MEDS: ONDANSETRON 4 MG/2 ML VIAL IV PRN (05:19)
[2021-11-02] MEDS: PANTOPRAZOLE SODIUM 40 MG TABLET.DR PO SCH (05:33)
[2021-11-02] MEDS: BLOOD SUGAR DIAGNOSTIC 1 EACH STRIP VI SCH ×2 (06:58→11:49)
[2021-11-02 07:04] LABS: HEMATOCRIT 37.9 % (36.7-47.1); MEAN CORPUSCULAR HEMOGLOBIN 27.7 uug (23.8-33.4); MEAN CORPUSCULAR VOLUME 83.9 fL (73.0-96.2); PLATELET COUNT (AUTO) 337 K/uL (152-348)
[2021-11-02 07:37] LABS: CREATININE 0.8 mg/dL (0.6-1.3); MAGNESIUM 2.1 mg/dL (1.8-2.4); PHOSPHOROUS 3.7 mg/dL (2.5-4.9); POTASSIUM 4.8 mmol/L (3.5-5.1)
[2021-11-02 07:59] LABS: THYROID STIMULATING HORMONE 1.406 mIU/mL (0.358-3.740)
[2021-11-02 08:00] VITALS: BP 131/74
[2021-11-02] MEDS: GABAPENTIN 300 MG CAPSULE PO SCH ×2 (09:05→12:16)
[2021-11-02] MEDS: ACIDOPHILUS/BULGARICUS CHEW TAB PO SCH (09:05)
[2021-11-02] MEDS: DIVALPROEX 500 MG TABLET.DR PO SCH ×2 (09:05→12:16)
[2021-11-02] MEDS: FLUCONAZOLE 100 MG TABLET PO SCH (09:05)
[2021-11-02] MEDS: levETIRAcetam 500 MG TABLET PO SCH (09:06)
[2021-11-02] MEDS: LINEZOLID 600 MG TABLET PO SCH (09:06)
[2021-11-02] MEDS: INSULIN REGULAR, HUMAN 300 UNIT/3 ML VIAL SQ PRN ×2 (09:20→12:26)
[2021-11-02] MEDS ORDERED: LINE600T15 PO (11:03)
[2021-11-02] MEDS ORDERED: ATOR20TA PO (11:03)
[2021-11-02] MEDS ORDERED: LEVE500T9 PO (11:03)
[2021-11-02 11:08] VITALS: BP 114/59
[2021-11-02] MEDS ORDERED: ASPI-618 PO (11:12)
--- NOTE | 2021-11-02 13:17 | NUR ---
Pt is a/o x 4. Plan is to discharge back to [facility] today. security field supervisor arranged for 1400. Pt is aware of discharge orders, MD has spoken to pt regarding health status. DM uncontrolled due to dietary noncompliance.
[2021-11-02 14:45] VITALS: BP 111/63
--- NOTE | 2021-11-02 14:46 | NUR ---
Pt is discharged to [facility], picked up by Ambulance at 1445. Report given to receiving nurse, Nurys. Pt is a/o x 4. IV removed. All personal belongings signed for and in hand. Home medications returned to pt. Beard catheter in place and draining urine. Pt's vitals upon discharge: 111/63, HR 84, SPO2 94%. No complaint of pain at this time. Pt is ambulatory with assistive device or by holding on to wall. All discharge information and education given to pt and included in folder transferring to facility.
== END 2021-11-02 14:45 | DRG 872 ==
LOC: ER 21:52 → MEDSURG3 10-31 01:09
PROVIDERS: ADMIT Internal Medicine; ATTEND Internal Medicine
DX: A41.9 Sepsis, unspecified organism (principal); N39.0 Urinary tract infection, site not specified; Z16.21 Resistance to vancomycin; Z68.42 Body mass index [BMI] 45.0-49.9, adult; I50.32 Chronic diastolic (congestive) heart failure; D68.69 Other thrombophilia; E44.0 Moderate protein-calorie malnutrition; E87.1 Hypo-osmolality and hyponatremia; B37.49 Other urogenital candidiasis; B95.2 Enterococcus as the cause of diseases classified elsewhere; G89.4 Chronic pain syndrome; E11.65 Type 2 diabetes mellitus with hyperglycemia; E66.01 Morbid (severe) obesity due to excess calories; E78.5 Hyperlipidemia, unspecified; E88.81 Metabolic syndrome and other insulin resistance; Z20.822 Contact with and (suspected) exposure to COVID-19; Z87.440 Personal history of urinary (tract) infections; Z91.14 Patient's other noncompliance with medication regimen; M19.90 Unspecified osteoarthritis, unspecified site; F32.9 Major depressive disorder, single episode, unspecified; F90.9 Attention-deficit hyperactivity disorder, unspecified type; K29.70 Gastritis, unspecified, without bleeding; K21.9 Gastro-esophageal reflux disease without esophagitis; B19.20 Unspecified viral hepatitis C without hepatic coma; G40.909 Epilepsy, unspecified, not intractable, without status epilepticus; F43.10 Post-traumatic stress disorder, unspecified; N40.1 Benign prostatic hyperplasia with lower urinary tract symptoms; F17.210 Nicotine dependence, cigarettes, uncomplicated; Z95.5 Presence of coronary angioplasty implant and graft; I11.0 Hypertensive heart disease with heart failure; Z91.19 Patient's noncompliance with other medical treatment and regimen; Z79.891 Long term (current) use of opiate analgesic; G47.33 Obstructive sleep apnea (adult) (pediatric); I25.10 Atherosclerotic heart disease of native coronary artery without angina pectoris; J44.9 Chronic obstructive pulmonary disease, unspecified; Z99.3 Dependence on wheelchair; D16.21 Benign neoplasm of long bones of right lower limb; Z79.4 Long term (current) use of insulin
CPT/HCPCS: 36415; 71045; 80299; 83735; 84100; 84443; 85025; 86803; 87040; 93005; 93307; A4663; G0378; J1170; J1815; J2020; J2405; J7050

== ENCOUNTER 2021-11-30 13:50 | Emergency (ER) | payer MEDICARE, OTHER ==
[~2021-11-30] VITALS: Ht 177.8 cm; Wt 153.3 kg
[~2021-11-30 13:50] MED LIST changes: +ASPI-618 PO; +ATOR20TA PO; -ATOR40TA PO; +CALC-469 PO; -INSU100V10 SQ; +INSU300I3 SQ; +LACT1CAP83 PO; -LEVE1000 PO; +LEVE500T9 PO; +LINE600T15 PO; -LOPE2CAP PO; +LORA-259 PO; +ONDA4TAB5 PO; -QUET25TA36 PO; -ZINC50TA65 PO
[2021-11-30] MEDS ORDERED: HYDROMORPHONE HCL 2 MG TABLET ONE (15:12)
[2021-11-30 15:15] LABS: HEMATOCRIT 40.6 % (36.7-47.1); MEAN CORPUSCULAR HEMOGLOBIN 28.1 uug (23.8-33.4); MEAN CORPUSCULAR VOLUME 84.4 fL (73.0-96.2); PLATELET COUNT (AUTO) 335 K/uL (152-348)
[2021-11-30] MEDS ORDERED: ONDANSETRON ODT 4 MG TAB.RAPDIS SL ONE (15:15)
[2021-11-30] MEDS ORDERED: HYDROMORPHONE HCL 2 MG TABLET PO ONE (15:15)
[2021-11-30] MEDS ORDERED: ONDANSETRON ODT 4 MG TAB.RAPDIS ONE (15:19)
[2021-11-30 15:35] LABS: ALANINE AMINOTRANSFERASE 48 U/L (16-63); ALKALINE PHOSPHATASE 173 U/L (50-136); ASPARTATE AMINOTRANSFERASE 14 U/L (15-37); BILIRUBIN,DIRECT < 0.1 mg/dL (0.0-0.2); BILIRUBIN,TOTAL 0.2 mg/dL (0.2-1.0); CARBON DIOXIDE 22 mmol/L (21-32); CHLORIDE 98 mmol/L (98-107); GLUCOSE 242 mg/dL (74-106); POTASSIUM 4.4 mmol/L (3.5-5.1); TOTAL PROTEIN, SERUM 7.2 g/dL (6.4-8.2); UREA NITROGEN, BLOOD 14 mg/dL (7-18)
[2021-11-30 15:56] LABS: *BILIRUBIN,URIN NEGATIVE (NEGATIVE); *CLARITY,URINE SLIGHTLY CLOUDY (CLEAR); *COLOR,URINE Other (YELLOW); *KETONES,URINE 1+ (NEGATIVE); *UROBILINOGEN,URINE 0.2 E.U./dl (NORMAL); LEUKOCYTE ESTERASE ,URINE TRACE (NEGATIVE); NITRITE, URINE NEGATIVE (NEGATIVE); PH,URINE 5.5 (5.0-8.0); UGLUCOSE 3+ (NEGATIVE)
[2021-11-30 16:02] LABS: *BLOOD, URINE TRACE (NEGATIVE)
[2021-11-30] MEDS ORDERED: METOCLOPRAMIDE HCL 10 MG/2 ML VIAL ONE (16:12)
[2021-11-30] MEDS ORDERED: diphenhydrAMINE 50 MG/1 ML VIAL ONE (16:13)
[2021-11-30] MEDS ORDERED: METOCLOPRAMIDE HCL 10 MG/2 ML VIAL IV ONE (16:30)
[2021-11-30] MEDS ORDERED: diphenhydrAMINE 50 MG/1 ML VIAL IV ONE (16:30)
--- NOTE | 2021-11-30 16:48 | NUR ---
PT IS IN ROOM #1B. DR MERCEDES EVALUATED THE PT.
[2021-11-30] MEDS ORDERED: HYDROMORPHONE 2 MG/1 ML DISP.SYRIN ONE (16:54)
[2021-11-30] MEDS ORDERED: HYDROMORPHONE 1 MG/1 ML DISP.SYRIN IV ONE (17:00)
--- NOTE | 2021-11-30 17:01 | NUR ---
PT REFUSED F/C INSERTION. DR MERCEDES WAS HOTIFIED.
--- NOTE | 2021-11-30 18:14 | NUR ---
PT IS GOING TO BE DISCHARGED TO [facility] ACCORDING TO DR MERCEDES ORDERS. [facility] ([phone]) WAS CALLED . LENA IS 1 HOUR.
--- NOTE | 2021-11-30 18:47 | NUR ---
PT WAS D/C'd BACK TO [facility] VIA BLS [facility]BULANCE. D/C INSTRUCTIONS GIVEN TO THE PT BY DR MERCEDES.
[2021-11-30 18:48] VITALS: BP 142/77
[2021-11-30 19:29] LABS: BACTERIA,URINE FEW /HPF (NONE SEEN); SQUAMOUS EPITHELIAL CELL,UR NONE SEEN /HPF (NONE SEEN); YEAST,URINE MANY /HPF (NONE SEEN)
== END 2021-11-30 18:49 ==
LOC: ER 13:53
DX: T83.028A Displacement of other urinary catheter, initial encounter (principal); R31.9 Hematuria, unspecified; Y73.8 Miscellaneous gastroenterology and urology devices associated with adverse incidents, not elsewhere classified; Y92.129 Unspecified place in nursing home as the place of occurrence of the external cause; N40.1 Benign prostatic hyperplasia with lower urinary tract symptoms; R33.8 Other retention of urine; Z53.29 Procedure and treatment not carried out because of patient's decision for other reasons; Z90.49 Acquired absence of other specified parts of digestive tract; Z87.440 Personal history of urinary (tract) infections; G89.4 Chronic pain syndrome; E66.01 Morbid (severe) obesity due to excess calories; Z68.42 Body mass index [BMI] 45.0-49.9, adult; Z91.19 Patient's noncompliance with other medical treatment and regimen; I25.10 Atherosclerotic heart disease of native coronary artery without angina pectoris; G40.909 Epilepsy, unspecified, not intractable, without status epilepticus; Z87.891 Personal history of nicotine dependence; K21.9 Gastro-esophageal reflux disease without esophagitis; Z86.19 Personal history of other infectious and parasitic diseases; J44.9 Chronic obstructive pulmonary disease, unspecified; Z79.891 Long term (current) use of opiate analgesic; Z95.5 Presence of coronary angioplasty implant and graft; Z85.830 Personal history of malignant neoplasm of bone; Z88.6 Allergy status to analgesic agent; Z88.1 Allergy status to other antibiotic agents; Z91.010 Allergy to peanuts; Z91.013 Allergy to seafood; Z79.4 Long term (current) use of insulin; Z20.822 Contact with and (suspected) exposure to COVID-19
CPT/HCPCS: 36415; 71045; 74176; 80048; 80076; 81001; 83605; 83880; 84145; 84484; 85025; 85730; 87040 ×2; 87086; 87426; 93005; 96374; 96375; 99285; J1170; J1200; J2765; A4663; Q0162

== ENCOUNTER 2021-12-26 21:28 | Emergency (ER) | payer MEDICARE, OTHER ==
--- NOTE | 2021-12-26 22:52 | NUR ---
Patient on gurny of private ambulance who transported patient from [facility] in [facility] due to no beds available in the ER. Patient however did not want to wait and told private ambulance to take him back to [facility]. Private ambulance took patient back to SNF. PATIENT WAS NOT TRIAGED OR SEEN BY MAYE.
== END 2021-12-26 23:00 | disposition left against medical advice (07) ==
LOC: ER 21:31
DX: Z53.21 Procedure and treatment not carried out due to patient leaving prior to being seen by health care provider (principal)

== ENCOUNTER 2022-01-09 08:45 | Inpatient (IN) | payer MEDICARE, OTHER ==
[~2022-01-09] VITALS: Ht 177.8 cm; Wt 162.0 kg
--- NOTE | 2022-01-09 09:01 | NUR ---
Dr Armenta at the bedside for MSE.
[2022-01-09] MEDS ORDERED: BUMETANIDE 1 MG/4 ML VIAL IV ONE (09:30)
[2022-01-09] MEDS ORDERED: BUMETANIDE 1 MG/4 ML VIAL ONE (09:38)
[2022-01-09 09:59] LABS: HEMATOCRIT 41.1 % (36.7-47.1); MEAN CORPUSCULAR HEMOGLOBIN 28.4 uug (23.8-33.4); MEAN CORPUSCULAR VOLUME 86.7 fL (73.0-96.2); PLATELET COUNT (AUTO) 320 K/uL (152-348)
[2022-01-09 10:10] LABS: CARBON DIOXIDE 26 mmol/L (21-32); CHLORIDE 98 mmol/L (98-107); CREATININE 0.9 mg/dL (0.6-1.3); POTASSIUM 4.5 mmol/L (3.5-5.1); UREA NITROGEN, BLOOD 14 mg/dL (7-18)
[2022-01-09 10:16] LABS: GLUCOSE 344 mg/dL (74-106)
--- NOTE | 2022-01-09 10:20 | NUR ---
Pt states he want to get a taxi voulcher so he leaves since "not getting any help". Pt states Dr Zhou promised him he will get Dilaudid IV for his leg pain. Dr Armenta at the bedside speking to pt, regarding plan of care.
[2022-01-09 10:23] LABS: ALANINE AMINOTRANSFERASE 35 U/L (16-63); ALKALINE PHOSPHATASE 160 U/L (50-136); ASPARTATE AMINOTRANSFERASE 15 U/L (15-37); BILIRUBIN,DIRECT 0.1 mg/dL (0.0-0.2); BILIRUBIN,TOTAL 0.2 mg/dL (0.2-1.0)
--- NOTE | 2022-01-09 10:34 | NUR ---
Paged Dr Zhou per MD request, awaiting call back.
--- NOTE | 2022-01-09 10:45 | NUR ---
Dr Armenta spoke to Dr hanson, pt will be admitted to the hospital under his care.
--- NOTE | 2022-01-09 11:14 | NUR ---
Pt uses wheelchair to go in the front of ER to smoke. Not willing to follow any suggestions/rules.
--- NOTE | 2022-01-09 11:45 | NUR ---
Dr. Zhou saw the pt and ordered Dilaudid 1mg IVP x 1 dose (verbal order).
[2022-01-09] MEDS ORDERED: HYDROMORPHONE 1 MG/1 ML DISP.SYRIN IV ONE ×2 (11:50→15:20)
[2022-01-09] MEDS ORDERED: HYDROMORPHONE 1 MG/1 ML DISP.SYRIN ONE ×2 (11:52→15:22)
--- NOTE | 2022-01-09 15:20 | NUR ---
Order for Dilaudid 1mg IVP x 1 dose received from via telephone.
[2022-01-09 16:28] VITALS: BP 125/79
[2022-01-09] MEDS ORDERED: MELATONIN 3 MG TABLET PO PRN (16:30)
[2022-01-09] MEDS: ENOXAPARIN SODIUM 40 MG/0.4 ML DISP.SYRIN SQ SCH (16:30)
[2022-01-09] MEDS ORDERED: IPRATROPIUM BROMIDE 12.9 GM INHALER INH PRN (16:30)
[2022-01-09] MEDS ORDERED: HYDROMORPHONE 1 MG/1 ML DISP.SYRIN IV PRN (16:30)
[2022-01-09] MEDS ORDERED: INSULIN REGULAR, HUMAN 300 UNIT/3 ML VIAL SQ PRN ×2 (16:30)
[2022-01-09] MEDS ORDERED: LORAZEPAM 1 MG TABLET PO PRN (16:30)
[2022-01-09] MEDS: BLOOD SUGAR DIAGNOSTIC 1 EACH STRIP VI SCH ×2 (16:30→20:15)
[2022-01-09] MEDS ORDERED: CALCIUM CARBONATE 500 MG PO SCH (16:30)
[2022-01-09] MEDS ORDERED: DEXTROSE 50% 50 ML DISP.SYRIN IV PRN ×2 (16:30→16:45)
[2022-01-09] MEDS ORDERED: ALBUTEROL SULFATE 8 GM HFA.AER.AD IH PRN (16:30)
[2022-01-09] MEDS ORDERED: INSULIN REGULAR, HUMAN 300 UNITS/3 ML VIAL SQ PRN (16:45)
[2022-01-09] MEDS ORDERED: ALBUTEROL SULFATE 2.5 MG/3 ML NEBU NEB PRN (16:45)
[2022-01-09] MEDS ORDERED: IPRATROPIUM BROMIDE 0.5 MG/2.5 ML NEBU NEB PRN (16:45)
[2022-01-09] MEDS ORDERED: CALCIUM CARBONATE 500 MG TAB.CHEW PO PRN (17:00)
[2022-01-09] MEDS ORDERED: Medication Not On Formulary EA (Lactobacillus Acidophilus/Pect (Acidophilus-Pectin Capsu PO SCH (17:00)
[2022-01-09] MEDS: CULTURELLE CAPSULE PO SCH ×2 (17:31→17:38)
[2022-01-09] MEDS: DIVALPROEX 500 MG TABLET.DR PO SCH ×2 (17:31→17:38)
[2022-01-09] MEDS: GABAPENTIN 300 MG CAPSULE PO SCH ×2 (17:31→17:38)
[2022-01-09] MEDS: PIPERACILLIN SODIUM/TAZOBACTAM 3.375 G in IV DEXTROSE 5% 50 ML IV SCH (18:00)
--- NOTE | 2022-01-09 20:00 | NUR ---
Received patient lying in bed. AAOx4. In no acute distress. Complain of pain on bilateral LE. Will provide Dilaudid 1.5mg IV PRN per order. Denies any SOB. On O2 at 4LPM via NC in place. O2 sat at 96%. NSR on tele with HR of 88/min. Midline on right upper arm intact and patent. Other needs assessed and attended to. Safety measure initiated and call light within reached.
[2022-01-09] MEDS: HYDROMORPHONE 2 MG/1 ML DISP.SYRIN IV PRN ×2 (20:13→23:15)
[2022-01-09] MEDS: VANCOMYCIN IV 1,250 MG in IV DEXTROSE 5% 250 ML IV SCH (20:14)
[2022-01-09] MEDS: ATORVASTATIN 20 MG TABLET PO SCH (20:14)
[2022-01-09] MEDS: QUETIAPINE FUMARATE 25 MG TABLET PO SCH (20:14)
[2022-01-09] MEDS: ESCITALOPRAM OXALATE 10 MG TABLET PO SCH (20:14)
[2022-01-09] MEDS: levETIRAcetam 500 MG TABLET PO SCH (20:14)
[2022-01-09] MEDS: INSULIN REGULAR, HUMAN 300 UNITS/3 ML VIAL SQ PRN (20:16)
[2022-01-09 20:19] VITALS: BP 111/66
[2022-01-09] MEDS ORDERED: INSULIN GLARGINE,HUM 300 UNITS/3 ML CARTRIDGE SQ SCH ×2 (21:00)
[2022-01-10 00:24] VITALS: BP 125/78
[2022-01-10] MEDS: PIPERACILLIN SODIUM/TAZOBACTAM 3.375 G in IV DEXTROSE 5% 50 ML IV SCH ×3 (01:29→17:34)
--- NOTE | 2022-01-10 03:00 | NUR ---
Late Entry- on 01/10/22, administered Dilaudid 1mg IV, one time dose. Inadvertently unable to document dose in EMAR.
[2022-01-10] MEDS: VANCOMYCIN IV 1,250 MG in IV DEXTROSE 5% 250 ML IV SCH (03:05)
[2022-01-10 04:55] VITALS: BP 118/72
[2022-01-10] MEDS: PANTOPRAZOLE SODIUM 40 MG TABLET.DR PO SCH (06:05)
[2022-01-10] MEDS: HYDROMORPHONE 2 MG/1 ML DISP.SYRIN IV PRN ×6 (06:05→23:53)
[2022-01-10] MEDS: BLOOD SUGAR DIAGNOSTIC 1 EACH STRIP VI SCH ×4 (06:32→21:26)
[2022-01-10 06:40] LABS: HEMATOCRIT 37.8 % (36.7-47.1); MEAN CORPUSCULAR HEMOGLOBIN 28.8 uug (23.8-33.4); MEAN CORPUSCULAR VOLUME 85.8 fL (73.0-96.2); PLATELET COUNT (AUTO) 279 K/uL (152-348)
--- NOTE | 2022-01-10 06:57 | NUR ---
Slept well during the night. AAOx4. In no acute distress. Dilaudid 1.5mg IV every 3 hrs PRN given for pain and effective. Denies any SOB. On O2 at 4LPM via NC in place. NSR on tele with HR of 70/min. Midline on right upper arm intact and patent. No adverse effect noted from IV antibiotics. Safety measure maintained and call light within reached.
--- NOTE | 2022-01-10 07:05 | NUR ---
Beard catheter intact and draining via gravity. Urine output yellow with sediments.
[2022-01-10 07:16] LABS: BILIRUBIN,TOTAL 0.3 mg/dL (0.2-1.0); CREATININE 0.7 mg/dL (0.6-1.3); PHOSPHOROUS 3.5 mg/dL (2.5-4.9); POTASSIUM 4.3 mmol/L (3.5-5.1); TOTAL PROTEIN, SERUM 6.4 g/dL (6.4-8.2)
[2022-01-10] MEDS ORDERED: BLOOD SUGAR DIAGNOSTIC 1 EACH STRIP VI SCH (07:30)
[2022-01-10] MEDS: levETIRAcetam 500 MG TABLET PO SCH ×2 (08:58→21:00)
[2022-01-10] MEDS: ASPIRIN EC 81 MG TABLET.DR PO SCH (08:58)
[2022-01-10] MEDS: LISINOPRIL 10 MG TABLET PO SCH (08:59)
[2022-01-10] MEDS: ENOXAPARIN SODIUM 40 MG/0.4 ML DISP.SYRIN SQ SCH (08:59)
[2022-01-10] MEDS: NICOTINE 21 MG/24HR PATCH TD SCH ×2 (08:59→09:00)
[2022-01-10] MEDS ORDERED: FUROSEMIDE 40 MG TABLET PO SCH (09:00)
[2022-01-10] MEDS: INSULIN REGULAR, HUMAN 300 UNIT/3 ML VIAL SQ PRN ×3 (09:01→17:32)
--- NOTE | 2022-01-10 09:10 | NUR ---
Late entry- clarification, at 0853 on 01/10/22 gave 1.5mg of Dilaudid, wasted 0.5mg but entered 0.25ml but it took it at 0.25mg.
[2022-01-10] MEDS: FUROSEMIDE 40 MG/4 ML VIAL IV SCH ×2 (09:12→20:59)
[2022-01-10 12:00] VITALS: BP 117/69
[2022-01-10] MEDS: INSULIN GLARGINE,HUM 300 UNITS/3 ML CARTRIDGE SQ SCH ×2 (12:03→21:03)
--- NOTE | 2022-01-10 12:30 | NUR ---
ACCOUNTS RECEIVABLE ACCOUNTANT was walking by room when she noticed smoke coming from patient, patient then placed something at his side. ACCOUNTS RECEIVABLE ACCOUNTANT alerted this RN patient may be smoking. When this RN interviewed the patient he denied smoking anything and offered to check his bag next to him. One industrial technology education teacher found and confiscated, placed in chart.
[2022-01-10] MEDS: DIVALPROEX 500 MG TABLET.DR PO SCH ×2 (13:57→17:24)
[2022-01-10] MEDS: GABAPENTIN 300 MG CAPSULE PO SCH ×2 (13:58→17:24)
[2022-01-10] MEDS: VANCOMYCIN IV 1,500 MG in IV DEXTROSE 5% 500 ML IV SCH ×2 (14:01→21:25)
[2022-01-10] MEDS ORDERED: HYDROMORPHONE 1 MG/1 ML DISP.SYRIN IV PRN (14:45)
--- NOTE | 2022-01-10 15:00 | NUR ---
Patient made aware MD had decreased Dilaudid. Patient is upset and requesting to be placed on 1.5mg again for his severe pain. paged.
[2022-01-10] MEDS: CULTURELLE CAPSULE PO SCH (17:24)
[2022-01-10 20:34] VITALS: BP 117/71
[2022-01-10] MEDS: ATORVASTATIN 20 MG TABLET PO SCH (21:01)
[2022-01-10] MEDS: QUETIAPINE FUMARATE 25 MG TABLET PO SCH (21:01)
[2022-01-10 21:10] LABS: *BILIRUBIN,URIN NEGATIVE (NEGATIVE); *BLOOD, URINE NEGATIVE (NEGATIVE); *CLARITY,URINE CLEAR (CLEAR); *COLOR,URINE YELLOW (YELLOW); *KETONES,URINE 1+ (NEGATIVE); *UROBILINOGEN,URINE 0.2 E.U./dl (NORMAL); LEUKOCYTE ESTERASE ,URINE TRACE (NEGATIVE); NITRITE, URINE POSITIVE (NEGATIVE); UGLUCOSE 2+ (NEGATIVE)
[2022-01-10] MEDS: ESCITALOPRAM OXALATE 10 MG TABLET PO SCH (21:16)
[2022-01-10] MEDS: INSULIN REGULAR, HUMAN 300 UNITS/3 ML VIAL SQ PRN (21:24)
[2022-01-10 22:40] LABS: BACTERIA,URINE FEW /HPF (NONE SEEN); RBC,URINE 0-3 /HPF (0-3); SQUAMOUS EPITHELIAL CELL,UR FEW /HPF (NONE SEEN); YEAST,URINE MANY /HPF (NONE SEEN)
[2022-01-11 00:18] VITALS: BP 114/79
[2022-01-11] MEDS: PIPERACILLIN SODIUM/TAZOBACTAM 3.375 G in IV DEXTROSE 5% 50 ML IV SCH ×3 (02:26→17:41)
[2022-01-11] MEDS: HYDROMORPHONE 2 MG/1 ML DISP.SYRIN IV PRN ×7 (03:00→23:46)
--- NOTE | 2022-01-11 03:00 | NUR ---
Pt's food he ordered from outside delivery came and ate what he ordered ie pasta with rolf sauce.
[2022-01-11 04:15] VITALS: BP 128/75
--- NOTE | 2022-01-11 05:16 | NUR ---
pt rested in between care; c/o generalized pain; medicated with dilaudid; complaints of pain comes usually q3h;
[2022-01-11] MEDS: VANCOMYCIN IV 1,500 MG in IV DEXTROSE 5% 500 ML IV SCH ×3 (05:56→21:06)
[2022-01-11] MEDS: PANTOPRAZOLE SODIUM 40 MG TABLET.DR PO SCH (07:00)
[2022-01-11] MEDS: BLOOD SUGAR DIAGNOSTIC 1 EACH STRIP VI SCH ×5 (07:30→21:16)
[2022-01-11] MEDS: NICOTINE 21 MG/24HR PATCH TD SCH (09:00)
[2022-01-11] MEDS: LISINOPRIL 10 MG TABLET PO SCH (09:00)
[2022-01-11] MEDS: DIVALPROEX 500 MG TABLET.DR PO SCH ×3 (09:15→17:15)
[2022-01-11] MEDS: ASPIRIN EC 81 MG TABLET.DR PO SCH (09:16)
[2022-01-11] MEDS: CULTURELLE CAPSULE PO SCH ×2 (09:16→17:15)
[2022-01-11] MEDS: levETIRAcetam 500 MG TABLET PO SCH ×2 (09:16→20:58)
[2022-01-11] MEDS: GABAPENTIN 300 MG CAPSULE PO SCH ×3 (09:17→17:15)
[2022-01-11] MEDS: INSULIN GLARGINE,HUM 300 UNITS/3 ML CARTRIDGE SQ SCH ×2 (09:19→20:54)
[2022-01-11] MEDS: ENOXAPARIN SODIUM 40 MG/0.4 ML DISP.SYRIN SQ SCH (09:19)
[2022-01-11] MEDS: INSULIN REGULAR, HUMAN 300 UNIT/3 ML VIAL SQ PRN ×4 (09:20→20:56)
[2022-01-11] MEDS: FUROSEMIDE 40 MG/4 ML VIAL IV SCH (09:21)
[2022-01-11] MEDS ORDERED: FUROSEMIDE 40 MG/4 ML VIAL IV ONE (10:30)
[2022-01-11] MEDS: MICAFUNGIN SODIUM 100 MG in IV NORMAL SALINE 100 ML IV SCH (10:57)
[2022-01-11 11:30] VITALS: BP 98/62
--- NOTE | 2022-01-11 11:49 | NUR ---
LATE ENTRY- PATIENT GIVEN DILAUDID 1.5MG IV AT THIS TIME, INADVERTENTLY MISSED IN EMAR.
[2022-01-11] MEDS: PROTEIN SUPPLEMENT (PROSTAT) 30 ML LIQUID PO SCH ×2 (12:09→17:15)
[2022-01-11 17:01] VITALS: BP 125/82
--- NOTE | 2022-01-11 18:00 | NUR ---
Patient remained in NSR throughout shift, no acute discomfort.
[2022-01-11 20:11] VITALS: BP 118/55
[2022-01-11] MEDS: QUETIAPINE FUMARATE 25 MG TABLET PO SCH (20:58)
[2022-01-11] MEDS: ATORVASTATIN 20 MG TABLET PO SCH (20:58)
[2022-01-11] MEDS: FUROSEMIDE 20 MG/2 ML VIAL IV SCH (20:59)
[2022-01-11] MEDS: ESCITALOPRAM OXALATE 10 MG TABLET PO SCH (21:00)
[2022-01-12] MEDS: PIPERACILLIN SODIUM/TAZOBACTAM 3.375 G in IV DEXTROSE 5% 50 ML IV SCH ×2 (02:26→09:48)
[2022-01-12] MEDS: HYDROMORPHONE 2 MG/1 ML DISP.SYRIN IV PRN ×3 (02:55→11:45)
[2022-01-12 04:43] VITALS: BP 126/85
--- NOTE | 2022-01-12 05:36 | NUR ---
pt c/o pain; 05/19 generalized; dilaudid 1.5 mg given IVP
[2022-01-12] MEDS: VANCOMYCIN IV 1,500 MG in IV DEXTROSE 5% 500 ML IV SCH ×2 (05:45→14:54)
--- NOTE | 2022-01-12 06:06 | NUR ---
t awake; pain is 0/10;
[2022-01-12] MEDS: PANTOPRAZOLE SODIUM 40 MG TABLET.DR PO SCH (06:26)
[2022-01-12] MEDS: BLOOD SUGAR DIAGNOSTIC 1 EACH STRIP VI SCH ×2 (06:27→11:37)
[2022-01-12] MEDS: ENOXAPARIN SODIUM 40 MG/0.4 ML DISP.SYRIN SQ SCH (08:29)
[2022-01-12] MEDS: INSULIN GLARGINE,HUM 300 UNITS/3 ML CARTRIDGE SQ SCH (08:31)
[2022-01-12] MEDS: INSULIN REGULAR, HUMAN 300 UNIT/3 ML VIAL SQ PRN ×2 (08:32→11:39)
[2022-01-12] MEDS: DIVALPROEX 500 MG TABLET.DR PO SCH ×2 (08:35→12:29)
[2022-01-12] MEDS: GABAPENTIN 300 MG CAPSULE PO SCH ×2 (08:35→12:30)
[2022-01-12] MEDS: CULTURELLE CAPSULE PO SCH (08:35)
[2022-01-12] MEDS: levETIRAcetam 500 MG TABLET PO SCH (08:35)
[2022-01-12] MEDS: LISINOPRIL 10 MG TABLET PO SCH (08:35)
[2022-01-12] MEDS: PROTEIN SUPPLEMENT (PROSTAT) 30 ML LIQUID PO SCH (08:36)
[2022-01-12] MEDS: ASPIRIN EC 81 MG TABLET.DR PO SCH (08:36)
[2022-01-12] MEDS: NICOTINE 21 MG/24HR PATCH TD SCH ×2 (08:36→08:56)
[2022-01-12] MEDS: FUROSEMIDE 20 MG/2 ML VIAL IV SCH (08:36)
[2022-01-12] MEDS: MICAFUNGIN SODIUM 100 MG in IV NORMAL SALINE 100 ML IV SCH (11:37)
[2022-01-12 11:44] VITALS: BP 106/49
[2022-01-12 14:01] LABS: HEMATOCRIT 41.3 % (36.7-47.1); MEAN CORPUSCULAR HEMOGLOBIN 28.7 uug (23.8-33.4); MEAN CORPUSCULAR VOLUME 85.6 fL (73.0-96.2); PLATELET COUNT (AUTO) 319 K/uL (152-348)
[2022-01-12] MEDS ORDERED: QUET50TA PO (14:03)
[2022-01-12] MEDS ORDERED: LACT10SO3 PO (14:08)
[2022-01-12 14:13] LABS: CREATININE 0.7 mg/dL (0.6-1.3); VANCOMYCIN,TROUGH 9.8 ug/mL (12.0-20.0)
[2022-01-12] MEDS ORDERED: HYDROMORPHONE 2 MG/1 ML DISP.SYRIN IV PRN (14:45)
--- NOTE | 2022-01-12 16:10 | NUR ---
Discharged patient to SNF. Report given to the RN occupational therapy supervisor. Skin intact. No other concern noted from the patient. All needs attended. All due meds given. VS wnl, stable. No acute distress noted. Belonging list signed. DC instructions given and noted with understanding.
[2022-01-12] MEDS ORDERED: VANCOMYCIN IV 2,000 MG in IV DEXTROSE 5% 500 ML IV SCH (22:00)
--- NOTE | 2022-01-13 05:36 | NUR ---
pt c/o pain; 05/19 generalized; dilaudid 1.5 mg given IVP Addendum: 01/15/22 at 1945 by ELLIOT SEGOVIA RN wrong date
--- NOTE | 2022-01-13 06:06 | NUR ---
pt awake; pain is 0/10; Addendum: 01/15/22 at 1945 by ELLIOT SEGOVIA RN wrong date
== END 2022-01-12 16:10 | DRG 603 ==
LOC: ER 08:45 → TELE3 15:18 → MEDSURG3 01-11 22:25
PROVIDERS: ADMIT Internal Medicine; ATTEND Internal Medicine
DX: L03.115 Cellulitis of right lower limb (principal); Z68.43 Body mass index [BMI] 50.0-59.9, adult; D68.59 Other primary thrombophilia; F11.20 Opioid dependence, uncomplicated; I50.32 Chronic diastolic (congestive) heart failure; I69.351 Hemiplegia and hemiparesis following cerebral infarction affecting right dominant side; B37.49 Other urogenital candidiasis; L03.116 Cellulitis of left lower limb; E11.65 Type 2 diabetes mellitus with hyperglycemia; E66.01 Morbid (severe) obesity due to excess calories; E78.5 Hyperlipidemia, unspecified; E88.81 Metabolic syndrome and other insulin resistance; F17.210 Nicotine dependence, cigarettes, uncomplicated; F32.9 Major depressive disorder, single episode, unspecified; F43.10 Post-traumatic stress disorder, unspecified; F90.9 Attention-deficit hyperactivity disorder, unspecified type; G47.33 Obstructive sleep apnea (adult) (pediatric); G40.909 Epilepsy, unspecified, not intractable, without status epilepticus; G89.4 Chronic pain syndrome; I11.0 Hypertensive heart disease with heart failure; J44.9 Chronic obstructive pulmonary disease, unspecified; Z20.822 Contact with and (suspected) exposure to COVID-19; Z87.440 Personal history of urinary (tract) infections; Z90.49 Acquired absence of other specified parts of digestive tract; Z91.19 Patient's noncompliance with other medical treatment and regimen; I25.10 Atherosclerotic heart disease of native coronary artery without angina pectoris; Z98.61 Coronary angioplasty status; Z74.09 Other reduced mobility; N40.1 Benign prostatic hyperplasia with lower urinary tract symptoms; R33.8 Other retention of urine; Z86.19 Personal history of other infectious and parasitic diseases; Z79.4 Long term (current) use of insulin; Z79.82 Long term (current) use of aspirin; Z85.830 Personal history of malignant neoplasm of bone; Z87.19 Personal history of other diseases of the digestive system
CPT/HCPCS: 36415; 71045; 80164; 83735; 84100; 84484; 85025; 87086; 93005; 93307; 97161; A4663; G0378; J1170; J1650; J1815; J1940; J2248; J2543; J3370; J3490; J7040; J7050; J7060

== ENCOUNTER 2022-06-29 08:17 | Inpatient (IN) | payer MEDICARE, OTHER ==
[~2022-06-29] VITALS: Ht 175.3 cm; Wt 143.3 kg
[~2022-06-29 08:17] MED LIST changes: -CALC-469 PO; +LACT10SO3 PO; -ONDA4TAB5 PO; -QUET25TA PO; +QUET50TA PO
--- NOTE | 2022-06-29 08:37 | NUR ---
Patient was moved from [facility] to regular hospital bed 2/2 our ER reagle nest's weight limit is about 300 lbs, going to ER bed 1B c/o chronic leg pains, respiration:easy, morbidly obese, afebrile . Patient said that he normally takes 8mg Dilaudid and his last dose was last night at the long-term nursing facility, pending MD's evaluation
[2022-06-29] MEDS ORDERED: VANCOMYCIN IV 200 ML ONE (08:55)
[2022-06-29] MEDS ORDERED: PIPERACILLIN/TAZOBACTAM/D5W 50 ML IV ONE (08:55)
[2022-06-29] MEDS ORDERED: ONDANSETRON 4 MG/2 ML VIAL ONE (08:56)
[2022-06-29] MEDS ORDERED: HYDROMORPHONE 1 MG/1 ML DISP.SYRIN ONE ×2 (08:56→09:42)
[2022-06-29] MEDS ORDERED: VANCOMYCIN IV 1,000 MG in IV DEXTROSE 5% 250 ML IV ONE (09:00)
[2022-06-29] MEDS ORDERED: HYDROMORPHONE 1 MG/1 ML DISP.SYRIN IV ONE ×2 (09:00→09:30)
[2022-06-29] MEDS ORDERED: ONDANSETRON 4 MG/2 ML VIAL IV ONE (09:00)
[2022-06-29] MEDS ORDERED: PIPERACILLIN SODIUM/TAZOBACTAM 3.375 G in IV DEXTROSE 5% 50 ML IV ONE (09:00)
[2022-06-29] MEDS ORDERED: HYDR8TAB2 PO (09:11)
[2022-06-29] MEDS ORDERED: FURO-151 PO (09:11)
[2022-06-29] MEDS ORDERED: CHOL4PAC2 PO (09:11)
[2022-06-29] MEDS ORDERED: UBID100C13 PO (09:11)
[2022-06-29 09:19] LABS: HEMATOCRIT 38.4 % (36.7-47.1); MEAN CORPUSCULAR HEMOGLOBIN 29.2 uug (23.8-33.4); MEAN CORPUSCULAR VOLUME 89.5 fL (73.0-96.2); PLATELET COUNT (AUTO) 300 K/uL (152-348)
[2022-06-29 09:39] LABS: ALANINE AMINOTRANSFERASE 26 U/L (16-63); ALKALINE PHOSPHATASE 130 U/L (50-136); ASPARTATE AMINOTRANSFERASE 16 U/L (15-37); BILIRUBIN,DIRECT 0.1 mg/dL (0.0-0.2); BILIRUBIN,TOTAL 0.2 mg/dL (0.2-1.0); CARBON DIOXIDE 33 mmol/L (21-32); CHLORIDE 101 mmol/L (98-107); CREATININE 0.8 mg/dL (0.6-1.3); GLUCOSE 248 mg/dL (74-106); POTASSIUM 4.7 mmol/L (3.5-5.1); TOTAL PROTEIN, SERUM 6.6 g/dL (6.4-8.2); UREA NITROGEN, BLOOD 13 mg/dL (7-18)
[2022-06-29] MEDS ORDERED: FUROSEMIDE 40 MG/4 ML VIAL IV ONE (10:00)
[2022-06-29] MEDS ORDERED: FUROSEMIDE 40 MG/4 ML VIAL ONE (10:08)
[2022-06-29 10:21] LABS: *BILIRUBIN,URIN NEGATIVE (NEGATIVE); *CLARITY,URINE CLEAR (CLEAR); *COLOR,URINE YELLOW (YELLOW); *KETONES,URINE TRACE (NEGATIVE); LEUKOCYTE ESTERASE ,URINE TRACE (NEGATIVE); NITRITE, URINE NEGATIVE (NEGATIVE); UGLUCOSE NEGATIVE (NEGATIVE)
[2022-06-29 10:30] LABS: *BLOOD, URINE TRACE (NEGATIVE)
--- NOTE | 2022-06-29 11:00 | NUR ---
received pt on the floor via hospital bed. pt will go to bed 325. pt came from [facility]. pt is lethargic. er gave 2 dose of Dilaudid. all belongings catalog. vitals wnl. no acute distress noted. call light on bedside. will cont to monitor.
--- NOTE | 2022-06-29 11:14 | NUR ---
Patient is resting comfortably on bed with eyes closed, no complaints of pains expressed at the moment, respiration: nonlabored, even and easy, pending EPIC hopsitalist's callback. JAVIER Lott was texted by RAGHAV Vick.
[2022-06-29] MEDS ORDERED: MAGNESIUM HYDROXIDE 30 ML LIQUID UDC PO PRN ×2 (11:30→11:45)
[2022-06-29] MEDS ORDERED: BLOOD SUGAR DIAGNOSTIC 1 EACH STRIP VI SCH (11:30)
[2022-06-29] MEDS ORDERED: HYDROMORPHONE HCL 2 MG TABLET PO PRN ×2 (11:30→11:45)
[2022-06-29] MEDS ORDERED: ALBUTEROL SULFATE 8 GM HFA.AER.AD IH SCH (11:30)
[2022-06-29] MEDS ORDERED: INSULIN GLARGINE,HUM 300 UNITS/3 ML CARTRIDGE SQ SCH (11:30)
[2022-06-29] MEDS ORDERED: ENOXAPARIN SODIUM 40 MG/0.4 ML DISP.SYRIN SQ SCH (11:30)
[2022-06-29] MEDS ORDERED: PANTOPRAZOLE SODIUM 40 MG TABLET.DR PO SCH (11:30)
[2022-06-29] MEDS ORDERED: LISINOPRIL 10 MG TABLET PO SCH (11:30)
[2022-06-29] MEDS ORDERED: levETIRAcetam 500 MG TABLET PO SCH (11:30)
[2022-06-29] MEDS ORDERED: DEXTROSE 50% 50 ML DISP.SYRIN IV PRN ×2 (11:30→11:45)
[2022-06-29] MEDS ORDERED: LORAZEPAM 1 MG TABLET PO PRN (11:30)
[2022-06-29] MEDS ORDERED: ONDANSETRON 4 MG/2 ML VIAL IV PRN (11:30)
[2022-06-29] MEDS ORDERED: NALOXONE NASAL SPRAY 4 MG SPRAY NS PRN (11:30)
[2022-06-29] MEDS ORDERED: MELATONIN 3 MG TABLET PO PRN ×2 (11:30→11:45)
[2022-06-29] MEDS ORDERED: ACETAMINOPHEN 325 MG TABLET PO PRN ×2 (11:30→11:45)
[2022-06-29] MEDS ORDERED: IPRATROPIUM BROMIDE 12.9 GM INHALER INH PRN (11:30)
[2022-06-29] MEDS ORDERED: CULTURELLE CAPSULE PO SCH (11:30)
[2022-06-29] MEDS ORDERED: INSULIN REGULAR, HUMAN 300 UNIT/3 ML VIAL SQ PRN (11:30)
[2022-06-29] MEDS ORDERED: CHOLESTYRAMINE/SUCROSE 4 GM PACKET PO SCH (11:30)
[2022-06-29] MEDS ORDERED: NALOXONE HCL 0.4 MG/ML AMPUL IV PRN (11:45)
[2022-06-29] MEDS ORDERED: IPRATROPIUM BROMIDE 0.5 MG/2.5 ML NEBU NEB PRN (11:45)
[2022-06-29] MEDS ORDERED: ALBUTEROL SULFATE 2.5 MG/3 ML NEBU NEB PRN (11:45)
[2022-06-29] MEDS: BLOOD SUGAR DIAGNOSTIC 1 EACH STRIP VI SCH ×3 (12:00→21:00)
[2022-06-29 12:30] VITALS: BP 114/58
[2022-06-29 12:46] LABS: BACTERIA,URINE MODERATE /HPF (NONE SEEN); RBC,URINE 0-3 /HPF (0-3); SQUAMOUS EPITHELIAL CELL,UR FEW /HPF (NONE SEEN); WBC,URINE 0-3 /HPF (0-3); YEAST,URINE MODERATE /HPF (NONE SEEN)
[2022-06-29] MEDS: DIVALPROEX 500 MG TABLET.DR PO SCH ×2 (13:00→18:15)
[2022-06-29] MEDS: levETIRAcetam 500 MG TABLET PO SCH ×2 (13:00→21:52)
[2022-06-29] MEDS: CHOLESTYRAMINE/SUCROSE 4 GM PACKET PO SCH ×3 (13:00→21:53)
[2022-06-29] MEDS: LISINOPRIL 10 MG TABLET PO SCH (13:00)
[2022-06-29] MEDS: PANTOPRAZOLE SODIUM 40 MG TABLET.DR PO SCH (13:00)
[2022-06-29] MEDS: CULTURELLE CAPSULE PO SCH ×2 (13:00→21:53)
[2022-06-29] MEDS: GABAPENTIN 300 MG CAPSULE PO SCH ×2 (13:00→18:15)
[2022-06-29] MEDS ORDERED: GABAPENTIN 300 MG CAPSULE PO SCH (13:00)
[2022-06-29] MEDS ORDERED: DIVALPROEX 500 MG TABLET.DR PO SCH (13:00)
--- NOTE | 2022-06-29 13:00 | NUR ---
pt is lethargic . 1300 meds not given. will try later.
[2022-06-29] MEDS: ENOXAPARIN SODIUM 40 MG/0.4 ML DISP.SYRIN SQ SCH (13:46)
[2022-06-29] MEDS: INSULIN GLARGINE,HUM 300 UNITS/3 ML CARTRIDGE SQ SCH ×2 (14:09→22:00)
[2022-06-29 16:41] VITALS: BP 117/62
--- NOTE | 2022-06-29 17:08 | NUR ---
PT REFUSED TO TAKE HIS PO MEDS.
--- NOTE | 2022-06-29 17:24 | NUR ---
PT REFUSED ZOFRAN AND PO MED. PT DONT WANT TO EAT EITHER. PT ASKING FOR IV PAIN MEDS. MD NOTIFIED. MD DOES NOT WANT TO CHANGED PO MEDS TO IV.
--- NOTE | 2022-06-29 18:00 | NUR ---
pt request to changed his dr. mcclelland notified. called dr. calvo to take over the case. dilauded 4mg po was changed to iv 2mg q3h prn.
[2022-06-29] MEDS: ONDANSETRON 4 MG/2 ML VIAL IV PRN (18:14)
[2022-06-29] MEDS: HYDROMORPHONE 2 MG/1 ML DISP.SYRIN IV PRN ×2 (18:16→21:50)
[2022-06-29 20:00] VITALS: BP 121/60
[2022-06-29] MEDS ORDERED: ATORVASTATIN 20 MG TABLET PO SCH (21:00)
[2022-06-29] MEDS ORDERED: QUETIAPINE FUMARATE 25 MG TABLET PO SCH (21:00)
[2022-06-29] MEDS ORDERED: ESCITALOPRAM OXALATE 10 MG TABLET PO SCH (21:00)
[2022-06-29] MEDS: QUETIAPINE FUMARATE 25 MG TABLET PO SCH (21:51)
[2022-06-29] MEDS: LORAZEPAM 0.5 MG TABLET PO PRN (21:52)
[2022-06-29] MEDS: ATORVASTATIN 20 MG TABLET PO SCH (21:53)
[2022-06-29] MEDS: ESCITALOPRAM OXALATE 10 MG TABLET PO SCH (22:14)
[2022-06-29] MEDS ORDERED: VANCOMYCIN 1000 MG VIAL ONE ×2 (22:44→22:45)
[2022-06-29] MEDS ORDERED: VANCOMYCIN IV 2,000 MG in IV DEXTROSE 5% 500 ML IV ONE (23:00)
[2022-06-30] VITALS: BP 125/62
[2022-06-30 04:00] VITALS: BP 130/72
[2022-06-30] MEDS: PANTOPRAZOLE SODIUM 40 MG TABLET.DR PO SCH (06:47)
[2022-06-30] MEDS: BLOOD SUGAR DIAGNOSTIC 1 EACH STRIP VI SCH ×4 (06:50→20:56)
[2022-06-30] MEDS: CHOLESTYRAMINE/SUCROSE 4 GM PACKET PO SCH ×2 (09:00→21:08)
[2022-06-30] MEDS: INSULIN GLARGINE,HUM 300 UNITS/3 ML CARTRIDGE SQ SCH ×2 (09:00→21:06)
[2022-06-30] MEDS: VANCOMYCIN IV 2,000 MG in IV DEXTROSE 5% 500 ML IV SCH ×2 (09:00→18:41)
[2022-06-30] MEDS: FUROSEMIDE 40 MG/4 ML VIAL IV SCH (09:35)
[2022-06-30] MEDS: CULTURELLE CAPSULE PO SCH ×2 (09:36→20:31)
[2022-06-30] MEDS: levETIRAcetam 500 MG TABLET PO SCH ×2 (09:36→20:30)
[2022-06-30] MEDS: GABAPENTIN 300 MG CAPSULE PO SCH ×3 (09:36→17:10)
[2022-06-30] MEDS: DIVALPROEX 500 MG TABLET.DR PO SCH ×3 (09:37→17:10)
[2022-06-30] MEDS: ENOXAPARIN SODIUM 40 MG/0.4 ML DISP.SYRIN SQ SCH (09:40)
[2022-06-30] MEDS: LISINOPRIL 10 MG TABLET PO SCH (09:43)
[2022-06-30] MEDS: HYDROMORPHONE 2 MG/1 ML DISP.SYRIN IV PRN ×5 (10:04→23:32)
[2022-06-30 11:50] VITALS: BP 114/63
--- NOTE | 2022-06-30 14:16 | NUR ---
PATIENT REFUSED BREAKFAST TRAY AND LUNCH TRAY AND SAID THAT HE HAS NOT EATEN ANYTHING SINCE HE GOT HERE AND WOULD NOT WANT TO EAT ANYTHING. HE ASKED FOR HIS DILAUDID 2MG IV PAIN MEDICATION PAIN MEDICATION ON TIME AND WILL USUALLY RIGHT BACK TO SLEEP. HE REFUSES HIS INSULIN AND SOME OTHER PO MEDICATIONS. VITAL SIGNS STABLE AND APPEAR TO HAVE LABORED BREATHING WHILE SLEEPING DEEP. EDUCATION ON THE NEED TO ADHERE TO TREATMENT WAS GIVEN WITH PATIENT HALF ASLEEP AND HALF AWAKE. WILL CONTINUE TO MONITOR PATIENT.
[2022-06-30 15:45] VITALS: BP 124/85
[2022-06-30] MEDS: INSULIN REGULAR, HUMAN 300 UNIT/3 ML VIAL SQ PRN ×2 (17:20→21:03)
--- NOTE | 2022-06-30 17:37 | NUR ---
PATIENT'S BLOOD SUGAR RECORDED 128MG/DL, NO COVERAGE NEEDED. PATIENT APPEARS TO HAVE APPETITE THIS EVENING AND MADE OUT SOME FOOD ORDER FROM THE KITCHEN AND SAME WAS SERVED THE PATIENT.HE WAS ABLE TO EAT SOME DINNER.
[2022-06-30 20:00] VITALS: BP 113/58
[2022-06-30] MEDS: QUETIAPINE FUMARATE 25 MG TABLET PO SCH (20:30)
[2022-06-30] MEDS: ATORVASTATIN 20 MG TABLET PO SCH (20:31)
[2022-06-30] MEDS: ESCITALOPRAM OXALATE 10 MG TABLET PO SCH (20:31)
[2022-07-01] MEDS: HYDROMORPHONE 2 MG/1 ML DISP.SYRIN IV PRN ×6 (02:32→23:50)
[2022-07-01] MEDS: VANCOMYCIN IV 2,000 MG in IV DEXTROSE 5% 500 ML IV SCH ×2 (02:37→15:49)
[2022-07-01 04:00] VITALS: BP 90/56
[2022-07-01] MEDS: PANTOPRAZOLE SODIUM 40 MG TABLET.DR PO SCH (06:33)
--- NOTE | 2022-07-01 06:47 | NUR ---
PT CONTINUE TO C/O PAIN IN BACK AND LOWER EXTREMITIES. MEDICATED WITH DILAUDID Q3H ATC BY REQUEST. aSLEEP AT TIME OF RECORDING
[2022-07-01] MEDS: BLOOD SUGAR DIAGNOSTIC 1 EACH STRIP VI SCH ×4 (07:30→21:12)
[2022-07-01] MEDS: INSULIN GLARGINE,HUM 300 UNITS/3 ML CARTRIDGE SQ SCH ×2 (09:00→21:00)
[2022-07-01] MEDS: GABAPENTIN 300 MG CAPSULE PO SCH ×3 (09:30→17:37)
[2022-07-01] MEDS: FUROSEMIDE 40 MG/4 ML VIAL IV SCH (09:30)
[2022-07-01] MEDS: levETIRAcetam 500 MG TABLET PO SCH ×2 (09:30→20:52)
[2022-07-01] MEDS: CHOLESTYRAMINE/SUCROSE 4 GM PACKET PO SCH ×2 (09:30→21:00)
[2022-07-01] MEDS: DIVALPROEX 500 MG TABLET.DR PO SCH ×3 (09:31→17:38)
[2022-07-01] MEDS: CULTURELLE CAPSULE PO SCH ×2 (09:31→20:52)
[2022-07-01] MEDS: LISINOPRIL 10 MG TABLET PO SCH (09:37)
[2022-07-01] MEDS: ENOXAPARIN SODIUM 40 MG/0.4 ML DISP.SYRIN SQ SCH (09:42)
[2022-07-01 10:41] LABS: HEMATOCRIT 43.5 % (36.7-47.1); MEAN CORPUSCULAR HEMOGLOBIN 29.1 uug (23.8-33.4); MEAN CORPUSCULAR VOLUME 87.3 fL (73.0-96.2); PLATELET COUNT (AUTO) 344 K/uL (152-348)
[2022-07-01 11:03] VITALS: BP 100/72
[2022-07-01 11:45] LABS: CARBON DIOXIDE 30 mmol/L (21-32); CHLORIDE 98 mmol/L (98-107); CREATININE 0.6 mg/dL (0.6-1.3); GLUCOSE 100 mg/dL (74-106); UREA NITROGEN, BLOOD 8 mg/dL (7-18)
[2022-07-01 13:04] LABS: THYROID STIMULATING HORMONE 1.635 mIU/mL (0.358-3.740)
--- NOTE | 2022-07-01 13:04 | NUR ---
WOUND CARE CONSULT: PT SLEEPING AT THIS TIME. DISCUSSED SKIN PROTECTION WITH NURSING STAFF. WILL SEE PT PT CONDITION PERMITS. CURRENT SAIMA SCORE OF 19.
[2022-07-01 13:22] LABS: CHOLESTEROL 126 mg/dL (<200); HDL CHOLESTEROL 25 mg/dL (40-60); TRIGLYCERIDES 141 MG/DL (30-150)
[2022-07-01 15:44] VITALS: BP 116/87
[2022-07-01 20:00] VITALS: BP 109/71
[2022-07-01] MEDS: QUETIAPINE FUMARATE 25 MG TABLET PO SCH (20:53)
[2022-07-01] MEDS: ESCITALOPRAM OXALATE 10 MG TABLET PO SCH (20:53)
[2022-07-01] MEDS: ATORVASTATIN 20 MG TABLET PO SCH (20:53)
[2022-07-02] MEDS: PANTOPRAZOLE SODIUM 40 MG TABLET.DR PO SCH (02:30)
[2022-07-02] MEDS: VANCOMYCIN IV 2,000 MG in IV DEXTROSE 5% 500 ML IV SCH ×2 (02:50→13:17)
[2022-07-02] MEDS: HYDROMORPHONE 2 MG/1 ML DISP.SYRIN IV PRN ×6 (03:06→22:07)
[2022-07-02 04:00] VITALS: BP 104/71
[2022-07-02] MEDS: BLOOD SUGAR DIAGNOSTIC 1 EACH STRIP VI SCH ×4 (06:35→21:25)
--- NOTE | 2022-07-02 07:35 | NUR ---
SHIFT NOTE: PT C/O PAIN STATES"i HAVE BEEN WAITING FOR LONG TIME BUT Xochitl NOT MAD AT YOU NURSE THEY ON DAYS TAKE SO LONG. PT RECEIVED==]DILAUDID 3 DURING THE SHIFT LAST DOSE GIVEN 0600 NO SIGN OF DISTRESS BP WNL. PT HS BLOOD SUGAR IS 114 DIDN'T GIVE LANTUS PER PATIENT REQUEST STATES DIDNT EAT MUCH. PT AM BLOOD SUGAR 269 WILL ENDORSE TO AM NURSE NO SIGNS OF DIABETIC REACTION NOTED. AM NURSE WILL GIVE COVERAGE. HS MEDICATION GIVEN ORDERED NO SIGNS OF ADVERSE REACTION NOTED. PT MONITORED EVERY 2 HOUR THROUGH THE NIGHT FOR FALLS AND SAFETY.
[2022-07-02] MEDS: LISINOPRIL 10 MG TABLET PO SCH (09:00)
[2022-07-02] MEDS: CHOLESTYRAMINE/SUCROSE 4 GM PACKET PO SCH ×2 (09:00→21:00)
[2022-07-02] MEDS: GABAPENTIN 300 MG CAPSULE PO SCH ×3 (09:00→17:00)
[2022-07-02] MEDS: ENOXAPARIN SODIUM 40 MG/0.4 ML DISP.SYRIN SQ SCH (09:00)
[2022-07-02] MEDS: INSULIN GLARGINE,HUM 300 UNITS/3 ML CARTRIDGE SQ SCH ×2 (09:00→22:02)
[2022-07-02] MEDS: levETIRAcetam 500 MG TABLET PO SCH ×2 (09:00→21:11)
[2022-07-02] MEDS: FUROSEMIDE 40 MG/4 ML VIAL IV SCH (09:00)
[2022-07-02 09:22] LABS: HEMATOCRIT 42.2 % (36.7-47.1); MEAN CORPUSCULAR HEMOGLOBIN 29.4 uug (23.8-33.4); MEAN CORPUSCULAR VOLUME 87.8 fL (73.0-96.2); PLATELET COUNT (AUTO) 327 K/uL (152-348)
[2022-07-02 09:34] LABS: CREATININE 0.8 mg/dL (0.6-1.3); MAGNESIUM 2.1 mg/dL (1.8-2.4); PHOSPHOROUS 4.6 mg/dL (2.5-4.9); POTASSIUM 4.2 mmol/L (3.5-5.1)
[2022-07-02] MEDS: CULTURELLE CAPSULE PO SCH ×2 (10:06→21:11)
[2022-07-02] MEDS: DIVALPROEX 500 MG TABLET.DR PO SCH ×3 (10:06→17:00)
[2022-07-02] MEDS: LORAZEPAM 0.5 MG TABLET PO PRN (10:09)
[2022-07-02] MEDS: ONDANSETRON 4 MG/2 ML VIAL IV PRN (10:31)
[2022-07-02 11:35] VITALS: BP 93/55
--- NOTE | 2022-07-02 13:40 | NUR ---
WOUND CARE CONSULT:PT ADAMANTLY REFUSED SKIN ASSESSMENT. WILL SEE PRN.
[2022-07-02] MEDS: PROTEIN SUPPLEMENT (PROSTAT) 30 ML LIQUID PO SCH ×2 (14:45→17:00)
[2022-07-02] MEDS ORDERED: FUROSEMIDE 20 MG/2 ML VIAL IV ONE (19:00)
[2022-07-02] MEDS: ENOXAPARIN SODIUM 150 MG/ML SYRINGE SQ SCH (19:07)
--- NOTE | 2022-07-02 19:53 | NUR ---
PATIENT REFUSED PICTURES OF HIS LEG WOUNDS AND SAID THAT IT WAS DONE IN HIS DOCTORS OFFICE, WELL WRAPPED AND THAT HE WILL NOT LET ANY BODY TOUCH. FOR TWO DAYS IN A ROW THAT HE REFUSED PICTURE OF HIS WOUNDS TO BE TAKEN.
[2022-07-02 20:00] VITALS: BP 108/72
[2022-07-02] MEDS: ATORVASTATIN 20 MG TABLET PO SCH (21:11)
[2022-07-02] MEDS: ESCITALOPRAM OXALATE 10 MG TABLET PO SCH (21:12)
[2022-07-02] MEDS: QUETIAPINE FUMARATE 25 MG TABLET PO SCH (21:12)
[2022-07-02] MEDS: INSULIN REGULAR, HUMAN 300 UNIT/3 ML VIAL SQ PRN (21:37)
[2022-07-02] MEDS ORDERED: INSULIN GLARGINE,HUM 300 UNITS/3 ML CARTRIDGE SQ ONE (21:50)
[2022-07-03] MEDS: VANCOMYCIN IV 2,000 MG in IV DEXTROSE 5% 500 ML IV SCH (00:14)
[2022-07-03] MEDS: HYDROMORPHONE 2 MG/1 ML DISP.SYRIN IV PRN ×5 (00:58→15:09)
[2022-07-03 04:00] VITALS: BP_SYST 109; BP_SYST 117; BP_DIAS 65; BP_DIAS 71
--- NOTE | 2022-07-03 06:16 | NUR ---
PATIENT REFUSED LANTUS HAD TO WASTE SINCE IT WAS PULLED UP IN SYRINGE. PT TOOK THE 3 UNITS OF REGULAR FOR ACCUCHECK 191. NOTED IN US DOPPLER OF RU EXTREMITY. POSITIVE FOR DVT. CHARGE NURSE INFORMED. PT CONTINUE REGUESTING PAIN MED Q3H. LL EXTREMITY CONTINUE WITH REDNESS. CONTINUE ON ANTIBIOTIC.
[2022-07-03 06:18] LABS: HEMATOCRIT 40.3 % (36.7-47.1); MEAN CORPUSCULAR HEMOGLOBIN 29.4 uug (23.8-33.4); MEAN CORPUSCULAR VOLUME 88.1 fL (73.0-96.2); PLATELET COUNT (AUTO) 304 K/uL (152-348)
[2022-07-03] MEDS: PANTOPRAZOLE SODIUM 40 MG TABLET.DR PO SCH (06:26)
[2022-07-03 07:23] LABS: CREATININE 0.8 mg/dL (0.6-1.3); MAGNESIUM 2.2 mg/dL (1.8-2.4); PHOSPHOROUS 3.9 mg/dL (2.5-4.9); POTASSIUM 4.3 mmol/L (3.5-5.1)
[2022-07-03] MEDS: BLOOD SUGAR DIAGNOSTIC 1 EACH STRIP VI SCH ×3 (07:38→16:01)
[2022-07-03] MEDS: INSULIN REGULAR, HUMAN 300 UNIT/3 ML VIAL SQ PRN ×2 (07:56→12:08)
[2022-07-03] MEDS: PROTEIN SUPPLEMENT (PROSTAT) 30 ML LIQUID PO SCH ×2 (08:00→11:17)
[2022-07-03] MEDS: GABAPENTIN 300 MG CAPSULE PO SCH ×3 (08:02→16:16)
[2022-07-03] MEDS: levETIRAcetam 500 MG TABLET PO SCH (08:02)
[2022-07-03] MEDS: LISINOPRIL 10 MG TABLET PO SCH (08:02)
[2022-07-03] MEDS: DIVALPROEX 500 MG TABLET.DR PO SCH ×3 (08:02→16:16)
[2022-07-03] MEDS: ENOXAPARIN SODIUM 150 MG/ML SYRINGE SQ SCH (08:03)
[2022-07-03] MEDS: CHOLESTYRAMINE/SUCROSE 4 GM PACKET PO SCH (08:03)
[2022-07-03] MEDS: CULTURELLE CAPSULE PO SCH (08:33)
[2022-07-03] MEDS: FUROSEMIDE 40 MG/4 ML VIAL IV SCH (08:57)
[2022-07-03 11:16] VITALS: BP 92/65
[2022-07-03] MEDS ORDERED: VANCOMYCIN IV 1,750 MG in IV DEXTROSE 5% 500 ML IV SCH (12:00)
[2022-07-03] MEDS ORDERED: IOHEXOL 300MG/ML 100 ML INFUS..BTL ONE (15:11)
[2022-07-03] MEDS ORDERED: SWABABLE VALVE TRANSFER SET EA MC ONE (15:11)
[2022-07-03] MEDS ORDERED: IV NORMAL SALINE 250 ML IV ONE (15:13)
[2022-07-03 15:45] VITALS: BP 97/65
[2022-07-03] MEDS ORDERED: [UNRECOGNIZED DRUG - CODE] IV (15:57)
[2022-07-03] MEDS ORDERED: APIX5TAB PO (15:57)
--- NOTE | 2022-07-03 16:56 | NUR ---
dc orders received noted and carried out.dc instruction and rn report given to the senior living.pt refused to change the folly catheter and removed his heplock . made aware.[facility] the [facility] condition and in proper clothing
[2022-07-03] MEDS ORDERED: APIXABAN 5 MG TABLET PO SCH (21:00)
== END 2022-07-03 16:45 | DRG 602 ==
LOC: ER 08:19 → TELE3 11:45 → MEDSURG3 06-30 23:30
PROVIDERS: ADMIT Nurse Practitioner Acute Care; ATTEND Nurse Practitioner Family
DX: L03.115 Cellulitis of right lower limb (principal); I50.33 Acute on chronic diastolic (congestive) heart failure; Z68.43 Body mass index [BMI] 50.0-59.9, adult; D68.59 Other primary thrombophilia; B37.49 Other urogenital candidiasis; I82.621 Acute embolism and thrombosis of deep veins of right upper extremity; T82.818A Embolism due to vascular prosthetic devices, implants and grafts, initial encounter; L03.116 Cellulitis of left lower limb; E66.01 Morbid (severe) obesity due to excess calories; E78.5 Hyperlipidemia, unspecified; E88.81 Metabolic syndrome and other insulin resistance; F17.210 Nicotine dependence, cigarettes, uncomplicated; Z79.82 Long term (current) use of aspirin; Z79.4 Long term (current) use of insulin; Z87.440 Personal history of urinary (tract) infections; E11.65 Type 2 diabetes mellitus with hyperglycemia; Z79.891 Long term (current) use of opiate analgesic; Z74.09 Other reduced mobility; F32.A Depression, unspecified; F90.9 Attention-deficit hyperactivity disorder, unspecified type; G40.909 Epilepsy, unspecified, not intractable, without status epilepticus; Z86.19 Personal history of other infectious and parasitic diseases; K29.70 Gastritis, unspecified, without bleeding; K21.9 Gastro-esophageal reflux disease without esophagitis; N40.0 Benign prostatic hyperplasia without lower urinary tract symptoms; Z85.830 Personal history of malignant neoplasm of bone; G89.4 Chronic pain syndrome; I11.0 Hypertensive heart disease with heart failure; I25.10 Atherosclerotic heart disease of native coronary artery without angina pectoris; Z91.199 Patient's noncompliance with other medical treatment and regimen due to unspecified reason; J44.9 Chronic obstructive pulmonary disease, unspecified; Y84.8 Other medical procedures as the cause of abnormal reaction of the patient, or of later complication, without mention of misadventure at the time of the procedure; Y92.129 Unspecified place in nursing home as the place of occurrence of the external cause; G47.33 Obstructive sleep apnea (adult) (pediatric); N40.1 Benign prostatic hyperplasia with lower urinary tract symptoms; Z79.899 Other long term (current) drug therapy
CPT/HCPCS: 36415; 71045; 83605; 83735; 84100; 84443; 84484; 85025; 85730; 87040; 87086; 93005; A4663; G0378; J1170; J1650; J1815; J1940; J2405; J2543; J3370; J7060; Q9967